=== PATIENT | female | born 1965 | race Caucasian/White ===

== ENCOUNTER 2016-10-15 11:46 | Inpatient (IN) ==
--- NOTE | 2016-10-15 12:11 | Emergency Department Report ---
Dizziness HPI - General Chief Complaint: Syncope Stated Complaint: dizzy ,dehydrated Time Seen by Provider: 10/15/16 11:59 Source: patient Mode of arrival: ambulatory Limitations: no limitations - History of Present Illness HPI Narrative: She presents to ER today from Destiny Mccarthy's office. She had gone to her office today for vomiting that has persisted x2 weeks. She had some promethazine left over from last summer and had been trying that at home but was not able to keep any food or water down for the last few days. Was noted at the PCP office to be weak and unsteady. They were using gait belt to help her get around to make sure that she did not fall. Had done lab at the clinic and was noted to be anemic (Hgb 8.4). She denies any abdominal pain or diarrhea. Denies any fever or chills. She does admit to drinking whiskey daily but states that she has not drank in a few weeks. MD complaint: dizziness Onset (ago): week(s) (2) Timing: gradual onset History of similar episodes: No History of trauma: No Severity: moderate Relieving factors: nothing Exacerbating factors: nothing Associated symptoms: malaise, nausea, vomiting - Related Data Home Medications Medication Instructions Recorded Confirmed Promethazine Tab [Phenergan Tab] 12.5 mg PO TID PRN 10/15/16 10/15/16 Allergies Allergy/AdvReac Type Severity Reaction Status Date / Time No Known Drug Allergies Allergy Unknown Verified 10/15/16 12:11 Review of Systems Constitutional: Reports: weakness. Denies: fever, chills Eyes: Denies: vision change ENT: Denies: ear pain, throat pain, congestion Cardiovascular: Denies: chest pain, palpitations, dyspnea on exertion, edema Respiratory: Denies: cough, dyspnea, wheezes Gastrointestinal: Reports: nausea, vomiting. Denies: abdominal pain, diarrhea, hematemesis, melena Genitourinary: Denies: urgency, dysuria, frequency Integumentary: Denies: rash Neurological: Reports: weakness. Denies: headache, numbness, paresthesias [facility] Patient Stated Medical History Hypertension Yes Depression Yes ETOHism Surgical History: Denies PSH - Social History Smoking status: Never smoker Physical Exam - General General appearance: alert, in no apparent distress - Normal Exams: Neck:: Full range of motion, without adenopathy, JVD, bruits or thyromegaly Chest/Respirations:: Clear all heck, with good airflow, and symmetry bilaterally Cardiovascular:: Regular rate and rhythm, without murmur or gallop, Pulses 2+ all extremities, capillary refill, <2 seconds all extremities Abdomen:: Bowel sounds positive, soft, non-tender, non-distended, no hepatosplenomegaly, masses or bruits noted Integumentary:: No rashes, hives, or bruising noted Neurological:: Patient is alert, and oriented Psychiatric:: Patient exhibits, appropriate attention, emotion and affect - Expanded ENT Exam External ear exam: Present: normal external inspection Nasal speculum exam: Bilateral: normal Mouth exam: Present: normal external inspection, tongue normal, other (Mucus membranes dry) Throat exam: Present: normal inspection Course Vital Signs Temperature 98.1 F 10/15/16 11:50 Pulse Rate 122 H 10/15/16 11:50 Respiratory Rate 18 10/15/16 11:50 Blood Pressure 128/60 10/15/16 11:50 Pulse Oximetry 99 10/15/16 11:50 Temperature 98.1 F 10/15/16 11:50 Pulse Rate 122 H 10/15/16 13:07 Respiratory Rate 20 10/15/16 12:23 Blood Pressure 123/77 10/15/16 13:07 Pulse Oximetry 100 10/15/16 13:07 Dizziness - MDM Narrative Medical decision making narrative: Hgb is 7.1. Rectal exam done at this time and is heme negative. Rocephin ordered IV for urinary tract infection. Spoke with Dr Lincoln regarding labs and hgb of 7.1. Will admit at this time. Patient has had no emesis during visit in ER. - Differential Diagnosis Likely: orthostatic hypotension - Lab Data Result diagrams: 10/15/16 12:49 10/15/16 12:49 Lab Results 10/15/16 10/15/16 10/15/16 Range/Units 12:49 12:49 12:49 WBC 3.4 L (4.5-11.0) T/MM3 RBC 1.66 L (4.00-5.20) M/MM3 Hgb 7.1 L (12-16) GM/DL Hct 21.4 L (36-46) % MCV 128.9 H (80-100) UM3 MCH 42.8 H (26-34) UUG MCHC 33.2 (31-37) GM/DL RDW Std Deviation 56.8 H (36.9-50.2) FL Plt Count 273 (130-400) T/MM3 MPV 10.0 (9.4-12.4) UM3 Immature Gran % (Auto) 0.3 (0.0-0.5) % Neut % (Auto) 69.0 H (33-66) % Lymph % (Auto) 18.8 L (23-45) % Brantley % (Auto) 11.3 H (0-9.0) % Eos % (Auto) 0.3 (0-4) % Baso % (Auto) 0.3 (0-2) % Neut # 2.3 (1.8-7.7) T/MM3 Lymph # 0.6 L (1-4.8) T/MM3 Brantley # 0.4 (0-0.8) T/MM3 Eos # 0.0 (0-0.5) T/MM3 Baso # 0.0 (0-0.2) T/MM3 Abs Immat Gran (auto) 0.01 (0.00-0.03) T/MM3 Turbidity < 20 (0-20) Sodium 139 (134-144) MEQ/L Potassium 3.7 (3.6-5) MEQ/L Chloride 104 (98-107) MEQ/L Carbon Dioxide 17 L (22-30) MEQ/L Anion Gap 18 H (5-15) MEQ/L BUN 4.0 L (7-17) MG/DL Creatinine 0.5 L (0.7-1.2) MG/DL GFR Calculation 130 BUN/Creatinine Ratio 8 (6-26) RATIO Glucose 91 (65-110) MG/DL Calculated Osmolality 265 (261-280) MOSM/KG Calcium 9.0 (8.4-10.2) MG/DL Total Bilirubin 1.30 (0.20-1.30) MG/DL Icterus Index < 2 (0-7) AST 89 H (14-36) U/L ALT 32 (9-52) U/L Alkaline Phosphatase 109 (38-126) U/L Troponin I < 0.012 (0-0.12) ng/ml Total Protein 6.3 (6.3-8.2) G/DL Albumin 3.9 (3.5-5.0) G/DL Globulin 2.4 (2.4-3.6) G/DL Albumin/Globulin Ratio 1.6 (1.1-2.2) RATIO Lipase 103 (23-300) U/L Plasma Lactate 1.2 (0.6-2.2) MMOL/L Procalcitonin 0.25 NG/ML Specimen Hemolysis < 15 (0-25) Ur Collection Type Urine Color (YELLOW) Urine Clarity Urine pH (5.0-8.0) Ur Specific [place] (1.015-1.025) Urine Protein (NEGATIVE) Urine Glucose (UA) (NEGATIVE) Urine Ketones (NEGATIVE) Urine Occult Blood (NEGATIVE) Urine Nitrate (NEGATIVE) Urine Bilirubin (NEGATIVE) Urine Urobilinogen (NORMAL) EU/DL Ur Leukocyte Esterase (NEGATIVE) Urine RBC (0-3) /HPF Urine WBC (0-5) /HPF Ur Squamous Epith Cells Ur Transition Epith Cell /HPF Urine Bacteria (NEGATIVE) Hyaline Casts /LPF Urine Mucus Ur Culture Indicated? 10/15/16 Range/Units 13:01 WBC (4.5-11.0) T/MM3 RBC (4.00-5.20) M/MM3 Hgb (12-16) GM/DL Hct (36-46) % MCV (80-100) UM3 MCH (26-34) UUG MCHC (31-37) GM/DL RDW Std Deviation (36.9-50.2) FL Plt Count (130-400) T/MM3 MPV (9.4-12.4) UM3 Immature Gran % (Auto) (0.0-0.5) % Neut % (Auto) (33-66) % Lymph % (Auto) (23-45) % Brantley % (Auto) (0-9.0) % Eos % (Auto) (0-4) % Baso % (Auto) (0-2) % Neut # (1.8-7.7) T/MM3 Lymph # (1-4.8) T/MM3 Brantley # (0-0.8) T/MM3 Eos # (0-0.5) T/MM3 Baso # (0-0.2) T/MM3 Abs Immat Gran (auto) (0.00-0.03) T/MM3 Turbidity (0-20) Sodium (134-144) MEQ/L Potassium (3.6-5) MEQ/L Chloride (98-107) MEQ/L Carbon Dioxide (22-30) MEQ/L Anion Gap (5-15) MEQ/L BUN (7-17) MG/DL Creatinine (0.7-1.2) MG/DL GFR Calculation BUN/Creatinine Ratio (6-26) RATIO Glucose (65-110) MG/DL Calculated Osmolality (261-280) MOSM/KG Calcium (8.4-10.2) MG/DL Total Bilirubin (0.20-1.30) MG/DL Icterus Index (0-7) AST (14-36) U/L ALT (9-52) U/L Alkaline Phosphatase (38-126) U/L Troponin I (0-0.12) ng/ml Total Protein (6.3-8.2) G/DL Albumin (3.5-5.0) G/DL Globulin (2.4-3.6) G/DL Albumin/Globulin Ratio (1.1-2.2) RATIO Lipase (23-300) U/L Plasma Lactate (0.6-2.2) MMOL/L Procalcitonin NG/ML Specimen Hemolysis (0-25) Ur Collection Type Urine, clean catch Urine Color Rosa (YELLOW) Urine Clarity Cloudy Urine pH 6.0 (5.0-8.0) Ur Specific [place] 1.025 (1.015-1.025) Urine Protein 1+ A (NEGATIVE) Urine Glucose (UA) Negative (NEGATIVE) Urine Ketones 3+ A (NEGATIVE) Urine Occult Blood Trace-lysed (NEGATIVE) Urine Nitrate Negative (NEGATIVE) Urine Bilirubin 2+ A (NEGATIVE) Urine Urobilinogen 4.0 A (NORMAL) EU/DL Ur Leukocyte Esterase 3+ A (NEGATIVE) Urine RBC 0-1 (0-3) /HPF Urine WBC 30-50 H (0-5) /HPF Ur Squamous Epith Cells 5-10 Ur Transition Epith Cell 0-1 /HPF Urine Bacteria 2+ H (NEGATIVE) Hyaline Casts 0-1 /LPF Urine Mucus Present Ur Culture Indicated? Cult reflexed &setup Disposition Clinical Impression: Anemia Qualifiers: Anemia type: unspecified type Qualified Code(s): D64.9 - Anemia, unspecified Disposition: 02 To [facility] [place] Acute Care Condition: Stable Prescriptions: No Action Promethazine Tab [Phenergan Tab] 12.5 mg PO TID PRN PRN Reason: Prn Orders Referrals: Rudi Sanchez MD [Physician] - Time of Disposition: 13:41 - Seen By: midlevel
[2016-10-15] MEDS: SALINE FLUSH 10ml SYRINGE IVF PRN ×4 (12:18→18:30)
--- NOTE | 2016-10-15 12:46 | XRay Report ---
INDICATION: dyspnea PROCEDURE: CHEST 2-VIEWS UPRIGHT (PA & LAT) Encounter: Initial COMPARISON: October 17, 2009 FINDINGS: The lungs are clear without evidence of focal abnormal airspace opacity. There is no pleural effusion or pneumothorax. The heart size, mediastinal contours and pulmonary vascularity are within normal limits. There is no significant skeletal abnormality. IMPRESSION: No acute cardiopulmonary disease. .
[2016-10-15] MEDS ORDERED: CEFTRIAXONE (ER USE ONLY) 1 GM in NS 100 ML IV ONE (13:19)
[2016-10-15] MEDS ORDERED: ONDANSETRON 4 MG/2 ML INJECTION IVP PRN (14:30)
[2016-10-15 14:39] VITALS: BMI 34.2
[2016-10-15] MEDS ORDERED: PROMETHAZINE 25 MG INJECTION IVP PRN (14:50)
[2016-10-15] MEDS: PANTOPRAZOLE 40 MG INJECTION IVP SCH ×2 (15:00→21:31)
[2016-10-15] MEDS: NS with KCL 20 mEq 1,000 ML IV SCH (15:00)
[2016-10-15] MEDS ORDERED: BISACODYL 10 MG SUPPOSITORY RECTALLY PRN (15:01)
[2016-10-15] MEDS ORDERED: DiphenhydrAMINE 25 MG CAPSULE PO ONE (15:04)
[2016-10-15] MEDS ORDERED: NS FLUSH BAG 500ml IV PRN (15:04)
--- NOTE | 2016-10-15 15:11 | History & Physical Report ---
<Skylar Mcclelland V - Last Filed: 10/15/16 15:08> History of Present Illness Date: 10/15/16 Chief complaint: Dizziness, dyspnea with exertion, anemic HPI: Patient is a 51-year-old female who presented to her primary care provider, Destiny Mcgill APRN at [facility] this morning for evaluation of dizziness, weakness and shortness of breath. She reports that she has been vomiting intermittently for the last 2-3 weeks. It was reported that lab had been obtained last week at [facility] clinic in which indicated a hemoglobin of 8.4. Due to patient's acute symptoms, accompanied with her increase pallor. She was directed to the emergency room for acute evaluation and treatment. White count was found to be low at 3.4, RBCs 1.66, hemoglobin 7.1 , hematocrit 21.4, MCV 128.9, platelet count 273. Sodium 139, potassium 3.7, BUN 4, creatinine 0.6, glucose 91. AST is elevated at 89, ALT normal at 32. Bilirubin 1.3, troponin undetectable. Venous lactate 1.2, lipase 103, pro calcitonin 0.25. A urinalysis did reveal acute infection with 1+ protein, 3+ ketones, 2+ bilirubin, 4+ urobilinogen, 3+ leukocyte esterase, 30-50 WBCs with 2 + bacteria. A chest x-ray is obtained showing no acute cardiopulmonary findings. Patient's tachycardic on arrival to the emergency room at 122, temperature 98.1, respiration rate 18, blood pressure 128/60, room air saturations 99%. A rectal exam was obtained that was heme-negative. Given her acute symptomatic anemia, accompanied with tachycardia. The hospitalist services were contacted and accepted patient for inpatient admission for further evaluation and treatment. It is expected that her stay will be greater than 2 overnights. Review of Systems All systems: reviewed and no additional remarkable complaints except as stated - Constitutional Constitutional: Present: fatigue, malaise - Respiratory Respiratory: Present: dyspnea, dyspnea on exertion - Gastrointestinal Gastrointestinal: Present: vomiting (x3 weeks) - Neurological Neurological: Present: dizziness, weakness PFSH Past medical Hx Hypertension Depression Daily alcohol consumption Surgical History: Denies PSH Family History: Father-diabetes. Patient is estranged from her mother and siblings. - Social History Smoking status: Never smoker Substance use type: does not use Alcohol intake: current Alcohol intake frequency: 0-2 drinks per day Housing: house Current occupational status: disabled Current residence: Apartment/Private Home Social history: PCP- Destiny Mcgill APRN at [facility] Medications Home Medications Medication Instructions Recorded Confirmed Type Promethazine Tab [Phenergan Tab] 12.5 mg PO TID PRN 10/15/16 10/15/16 History Allergies Allergy/AdvReac Type Severity Reaction Status Date / Time aspirin [From Naomy Aspirin] Allergy Intermediate Rash Verified 10/15/16 15:38 Exam Vital Signs: Temperature 97.3 F 10/15/16 14:30 Pulse Rate 101 H 10/15/16 14:30 Respiratory Rate 16 10/15/16 14:30 Blood Pressure 131/74 10/15/16 14:30 Pulse Oximetry 98 10/15/16 14:30 Oxygen Delivery Method Room Air Height: 1.68 m Weight: 96.3 kg Body Mass Index: 34.2 - Constitutional Present: no acute distress, well nourished, well developed - Routine HEENT Exam Head: Present: normocephalic, atraumatic Eye: Present: EOMI, PERRL ENT: Present: mucous membranes moist - Routine Neck Exam Present: supple, full ROM - Routine Respiratory Exam Present: CTA bilaterally - Routine Cardiovascular Exam Present: RRR, S1, S2, tachycardia (100) - Routine Abdominal Exam Present: soft, non distended, non tender. Absent: normoactive bowel sounds ( hypoactive ) - Routine Extremities Exam Present: no edema, full ROM, pallor - Routine Back/Spine/Pelvis Exam Back/Spine: Present: full ROM - Routine Skin Exam Present: intact, dry, pallor - Routine Neurological Exam Present: alert, oriented X3, CN II-XII intact, moving all extremities - Routine Psychiatric Exam Present: normal affect, normal thought process Results - Labs CBC & Chem 7: 10/15/16 12:49 10/15/16 12:49 Assessment and Plan (1) Anemia Current visit: Yes Status: Acute (2) Leukopenia Current visit: Yes Status: Acute (3) HTN (hypertension) Current visit: Yes Status: Chronic (4) Depression Current visit: Yes Status: Chronic (5) Daily consumption of alcohol Current visit: Yes Status: Chronic (6) UTI (urinary tract infection) Current visit: Yes Status: Acute DVT Prophylaxis: SCD's GI Prophylaxis: Protonix Resuscitation Status: Full Code Assessment and Plan: 10/15/16 Admit patient to inpatient status under the care of Dr. Lincoln for symptomatic anemia, leukopenia, urinary tract infection Type and screen Cross both patient and transfuse 1 unit of packed red blood cells for anemia. Consult Dr. Amezcua for further surgical evaluation and treatment. Did discuss with patient that she may require further GI scope evaluation. Will obtain iron studies including ferritin, iron, folate and vitamin B12. Protonix 40 milligrams IV twice a day for GI protection Will give folate and thiamine given history of routine alcohol use. Normal saline with 20 of KCl at 75 ML per hour for gentle hydration UA obtained in the ER indicating a UTI. Patient started on Rocephin 1 gm IV daily. Urine culture pending. Will recheck CBC and CMP tomorrow morning to follow blood counts, renal function and electrolytes. Will discuss further orders and plan of care with attending, Dr. Lincoln. At time of discharge medical care will return to primary care provider at [facility] Sepsis Assessment - Evaluation Sepsis screening result: No Definite Risk Hospital Course Summary Disclaimer: The visit summary below is not to be considered part of the above Progress Note. Hospital Course: 10/15/16- Admission Admit patient to inpatient status under the care of Dr. Lincoln for symptomatic anemia, leukopenia, urinary tract infection Type and screen Cross both patient and transfuse 1 unit of packed red blood cells for anemia. Consult Dr. Amezcua for further surgical evaluation and treatment. Did discuss with patient that she may require further GI scope evaluation. Will obtain iron studies including ferritin, iron, folate and vitamin B12. Protonix 40 milligrams IV twice a day for GI protection Will give folate and thiamine given history of routine alcohol use. Normal saline with 20 of KCl at 75 ML per hour for gentle hydration UA obtained in the ER indicating a UTI. Patient started on Rocephin 1 gm IV daily. Urine culture pending. Will recheck CBC and CMP tomorrow morning to follow blood counts, renal function and electrolytes. Will discuss further orders and plan of care with attending, Dr. Lincoln. At time of discharge [facility] <Kvng Lincoln Filed: 10/15/16 16:54> History of Present Illness Date: 10/15/16 ON LICENSE OF [facility] Patient Stated Medical History Hypertension Yes Hx Urinary Tract Infection Yes: currently Anemia Yes: currently Osteoarthritis Yes: knees Depression Yes Post Menopausal Yes: 2013 Exam Vital Signs: Temperature 97.3 F 10/15/16 14:30 Pulse Rate 101 H 10/15/16 14:30 Respiratory Rate 16 10/15/16 14:30 Blood Pressure 131/74 10/15/16 14:30 Pulse Oximetry 98 10/15/16 14:30 Oxygen Delivery Method Room Air Height: 1.68 m Weight: 96.3 kg Results - Labs CBC & Chem 7: 10/15/16 12:49 10/15/16 12:49 Assessment and Plan (1) Anemia Current visit: Yes Status: Acute (2) Leukopenia Current visit: Yes Status: Acute (3) UTI (urinary tract infection) Current visit: Yes Status: Acute (4) HTN (hypertension) Current visit: Yes Status: Chronic (5) Depression Current visit: Yes Status: Chronic (6) Daily consumption of alcohol Current visit: Yes Status: Chronic Assessment and Plan: Have independently interviewed and examined pt. Chart reviewed. Case discussed with ED physician and my [employer]. Care plan developed with my supervision; agree with above. Has been having nausea and vomiting over the last 2 weeks. Hard to keep anything down-any intake makes a U-turn and she vomits it up. Tried some old Phenergan but not able to keep this down. Not throwing up blood. No blood in stool or tarry dark sticky stools noted. Appetite progressively decreased-not feeling hungry or wanting to eat. Progressively more weak and unsteady. Lightheaded with positional changes. Gets short of breath as walking. Much more tired and fatigued. Not feeling chest pressure or pain. Report still producing urine. Denies use of OTC pain medications. Lungs: decreased, no distress CV: tachy, regular AB: soft nt/nd BS present Ext: no edema MSE: awake alert appropriate Plan: Inpatient admission-anticipate greater than 2 midnights of care needed. With significant and symptomatic anemia, will transfuse 1 unit of pRBC and monitor hemoglobin response. Monitor for GI blood loss-currently not seeing evidence of massive acute lose, but patient at risk. Protonix 40mg IV BID for GI protection-suspect upper GI losses. EGD and colonoscopy would be prudent due to severity of anemia and pt's age-discussed this with her and she is not too keen to proceed right now but would be prudent to have Sx see her for potential procedures in the outpatient setting. As not looking at EGD/colonoscopy immediately, will advance diet to full liquid. Check B12 and folic acid secondary to macrocytosis (anemia could potentially be from her chronic ETOH use ). Iron and ferritin prudent as likely some chronic blood loss from gastritis secondary to ETOH use. SCD for DVT prevention. Monitor lab. Discussed code status with pt and she request no resuscitation. [facility] to [facility] at time of discharge from [facility] [place] Hospital Course Summary Disclaimer: The visit summary below is not to be considered part of the above Progress Note.
[2016-10-15] MEDS: THIAMINE 200mg/2ml INJECTION IVP SCH (16:30)
[2016-10-15] MEDS: FOLIC ACID 5 MG/ML INJECTION IVP SCH (16:31)
[2016-10-15] MEDS ORDERED: DiphenhydrAMINE 50 MG/ML INJECTION IVP ONE (18:24)
[2016-10-15] MEDS ORDERED: ACETAMINOPHEN 325 MG TABLET PO ONE (19:48)
[2016-10-16] MEDS: NS with KCL 20 mEq 1,000 ML IV SCH (06:49)
[2016-10-16] MEDS: PANTOPRAZOLE 40 MG INJECTION IVP SCH (08:25)
[2016-10-16] MEDS: THIAMINE 200mg/2ml INJECTION IVP SCH (08:26)
[2016-10-16] MEDS: FOLIC ACID 5 MG/ML INJECTION IVP SCH (08:26)
[2016-10-16] MEDS: SALINE FLUSH 10ml SYRINGE IVF PRN (08:27)
[2016-10-16] MEDS: CEFTRIAXONE 1 G in NS 100 ML IV SCH (08:42)
--- NOTE | 2016-10-16 09:09 | Consultation ---
DATE OF CONSULTATION 10/15/2016 HISTORY OF PRESENT ILLNESS This patient is 51 years old. This patient had an office visit today at the [facility] office. She reported that she had been having vomiting for two weeks. The patient reported that she had not been able to keep any food or water down for the last few days. The patient did appear to be weak and unsteady at the time of the office visit at [facility]. She had laboratory tests performed at [facility] and was noted to have a hemoglobin of 8.4. The patient denied any abdominal pain or diarrhea. She denied any fever or chills. She was transferred to [facility] emergency room. She had a chief complaint of dizziness and syncope. CBC was repeated at [facility] and the patient was found have a hemoglobin of 7.1. The patient was thought to have some likely orthostatic hypotension. The patient did not have any emesis during the time that she was evaluated at the emergency room. Rectal exam was done at the time of emergency room evaluation. The stool at this time was noted to be Hemoccult negative. The patient was admitted to [facility] from the emergency room by the hospitalist service for further evaluation and treatment of the acute anemia. The patient was noted at the time of admission to have acute symptomatic anemia accompanied by tachycardia. The patient was also noted at this time to have leukopenia with a white blood cell count of 3400. Plans are being made to type and cross the patient to transfuse her with one unit of packed red blood cells for treatment of the anemia. Iron studies will be performed. The patient is being started on treatment with Protonix 40 mg IV b.i.d. pending evaluation of the gastrointestinal tract. The patient states that she has had no abdominal pain. She states that she has never previously had any episode of anemia. She has no history of peptic ulcer disease. She has never had any previous esophagogastroduodenoscopy or colonoscopy procedure. The patient has never seen any blood in her stool. PAST MEDICAL HISTORY The patient has had no previous operations. She has had no previous esophagogastroduodenoscopy or colonoscopy procedures. PHYSICAL EXAMINATION VITAL SIGNS: Temperature is 97.3 degrees. Pulse is 101. Respiratory rate is 16. Blood pressure is 131/74. Oxygen saturation is 98% on room air. Height is 1.68 meters. Weight is 96.3 kg. BMI is 34.3 kg/m2. ABDOMEN: No abdominal masses. No abdominal tenderness. No old incision scars. The abdomen is soft. RECTUM: I did perform digital rectal examination. There was no blood at the rectal vault. There were no rectal masses. LABORATORY DATA Hemoglobin was 7.1 and hematocrit was 21.4 at the time of admission to [facility] today. White blood count was 3400. Platelet count is 273,000. Total bilirubin is normal at 1.3. AST is mildly elevated at 89. ALT and alkaline phosphatase are normal. IMPRESSION 1. Anemia. 2. Leukopenia. 3. History of nausea and vomiting of two weeks' duration. 4. Acute urinary tract infection. 5. Hypertension. 6. Depression. RECOMMENDATIONS 1. I agree with the plan to transfuse the patient with one unit of packed red blood cells and monitor hemoglobin and hematocrit. 2. I agree with the treatment of Protonix 40 mg IV b.i.d. for GI protection until the upper gastrointestinal tract can be evaluated. 3. I think the patient would benefit from esophagogastroduodenoscopy and colonoscopy for evaluation of her anemia. The patient should also have a colonoscopy anyway at this time for screening for colon and rectal carcinoma. PATIENT EDUCATION I did talk with the patient about undergoing esophagogastroduodenoscopy and colonoscopy. The nature of these procedures was described to the patient. Expected benefits were reviewed. Alternatives were reviewed. Potential risks and complications were also reviewed with the patient. PLAN The patient is wanting to proceed with esophagogastroduodenoscopy at this time. She will be scheduled to have this procedure tomorrow. JUANIS
--- NOTE | 2016-10-16 09:25 | Anesthesia Preoperative Report ---
Anesthesia Preoperative Record - Date and Time Date: 10/16/16 Preoperative Diagnosis: Anemia Proposed Procedure: EGD NPO Since Date: 10/15/16 NPO Since Time: 23:55 Allergies/Adverse Reactions: Allergies Allergy/AdvReac Type Severity Reaction Status Date / Time aspirin [From Naomy Aspirin] Allergy Intermediate Rash Verified 10/15/16 15:38 - Vital Signs Vital Signs: Temperature 98.3 F 10/16/16 09:09 Pulse Rate 124 H 10/16/16 09:09 Respiratory Rate 19 10/16/16 09:09 Blood Pressure 145/75 H 10/16/16 09:09 Pulse Oximetry 97 10/16/16 09:09 Oxygen Delivery Method Room Air Height and Weight: Height 5 ft 6 in Weight 96.9 kg Body Mass Index 34.2 - Medications Inpatient Medications: Current Medications Acetaminophen (Tylenol) 650 mg PO Q5H PRN PRN Reason: Discomfort Bisacodyl (Dulcolax) 10 mg RECTALLY DAILY PRN PRN Reason: Constipation Cyanocobalamin (Vit. B-12) 1,000 mcg IM DAILY [facility] Stop: 10/20/16 09:01 Folic Acid (Folate) 1 mg IVP DAILY [facility] Last Admin: 10/16/16 08:26 Dose: 1 mg Potassium Chloride/Sodium Chloride () 1,000 mls @ 75 mls/hr IV .[id number] [facility] Last Infusion: 10/16/16 08:42 Dose: 0 mls/hr Ceftriaxone Sodium 1 g/ Sodium (Chloride) 100 mls @ 200 mls/hr IV DAILY [facility] Last Admin: 10/16/16 08:42 Dose: 200 mls/hr Lidocaine HCl 10 mg/ Potassium Chloride 10 meq/ Sodium Chloride 100 mls @ 100 mls/hr IV .Q1H [facility] Stop: 10/16/16 12:14 Magnesium Sulfate/Dextrose (Mag Sulf 1gm Premix) 1 gm in 100 mls @ 100 mls/hr IV Q1H [facility] Stop: 10/16/16 11:08 Lorazepam (Ativan Inj) 0.5 mg IVP Q4H PRN PRN Reason: Agitation/Restlessness Magnesium Hydroxide (Mom) 30 ml PO DAILY PRN PRN Reason: Constipation Ondansetron HCl (Zofran) 4 mg IVP Q6H PRN PRN Reason: Nausea Pantoprazole Sodium (Protonix Iv) 40 mg IVP BID [facility] Last Admin: 10/16/16 08:25 Dose: 40 mg Potassium Chloride (K-Dur) 20 meq PO ONCE ONE Stop: 10/16/16 17:31 Promethazine HCl (Phenergan Inj) 25 mg IVP Q6H PRN PRN Reason: Nausea Sodium Chloride (Iv Flush) 10 - 80 ml IVF PRN PRN PRN Reason: Flushing Last Admin: 10/16/16 08:27 Dose: 10 ml Sodium Chloride (Normal Saline) 500 ml IV PRN PRN Thiamine HCl (Vitamin B-1) 100 mg IVP DAILY [facility] Last Admin: 10/16/16 08:26 Dose: 100 mg Home Medications: Home Medications Medication Instructions Recorded Confirmed Type Promethazine Tab [Phenergan Tab] 12.5 mg PO TID PRN 10/15/16 10/15/16 History Is Patient on Beta Neeraj?: No - Medical History Respiratory: Reports: Sleep Apnea Cardiovascular: Reports: Hypertension Other History: Reports: Blood Transfusions (had reaction yesterday) - Surgical History Anesthesia Reactions: None Hx Family Anesthesia Reaction: No (mother but unsure of reaction) History of Motion Sickness: No - Social History Smoking Status: Never smoker Hx Chewing Tobacco Use: No Second Hand Exposure: No Substance Use Type: does not use Alcohol Intake: current Alcohol Intake Frequency: 0-2 drinks per day Last Drink: days (ago) (14) - Pertinent Findings Laboratory: CBC and BMP 10/16/16 04:23 10/16/16 04:23 BMP 10/16/16 04:23 Sodium 139 Potassium 3.2 L Chloride 105 Carbon Dioxide 21 L BUN 3.0 L Creatinine 0.4 L Glucose 83 Calcium 8.9 Liver Function 10/16/16 Range/Units 04:23 Total Bilirubin 1.20 (0.20-1.30) MG/DL AST 52 H (14-36) U/L ALT 31 (9-52) U/L Alkaline Phosphatase 96 (38-126) U/L Albumin 3.5 (3.5-5.0) G/DL EKG Rhythm: Sinus Tachycardia - Physical Exam Respiratory Exam: Present: lungs clear, bilateral breath sounds equal Cardiovascular Exam: Present: regular rate and rhythm, no murmur - Airway Assessment Mallampati Score: III TMD: 3 Fingerbreadths Overall Assessment: may be difficult intubation - ASA ASA Score: 2 - Plan Anesthesia: General TIVA - Discussion Discussion: Discussed risks/options/alternatives of anesthesia and questions answered. Patient consents. Nursing pain assessment noted. Attestation Statement: Prior to the delivery of any anesthetic medication, I examined the patient, developed the plan, obtained the patient's consent and discussed the risk and benefits of the procedure with the patient/guardian. - Additional Information Seen by Anesthesia: Yes
[2016-10-16] MEDS ORDERED: NS 1,000 ML IV SCH (09:30)
[2016-10-16] MEDS ORDERED: PROPOFOL 500 MG/50 ML VIAL IV ONE (09:30)
[2016-10-16] MEDS ORDERED: LIDOCAINE VISCOUS 2% ORAL LIQUID 15ml ONE (11:20)
--- NOTE | 2016-10-16 12:10 | General Surgery Procedure Note ---
Date of Procedure: 10/16/16 Surgeon: Seven Postoperative Diagnosis: anemia Procedure: EGD Estimated Blood Loss: See Anesthesia Record.
--- NOTE | 2016-10-16 12:25 | Anesthesia Postoperative Note ---
- Date and Time Date: 10/16/16 Time: 12:25 - Status Patient Participated in Evaluation: Patient Participated in Person Vital Signs: Temperature 99.1 F 10/16/16 12:10 Pulse Rate 104 H 10/16/16 12:20 Respiratory Rate 18 10/16/16 12:20 Blood Pressure 91/55 10/16/16 12:20 Pulse Oximetry 99 10/16/16 12:20 Oxygen Delivery Method Room Air Oxygen Flow Rate 4 Respiratory Function: Airway Patent Cardiovascular Function: Regular Pulse EKG Rhythm: Normal Sinus Rhythm Mental Status: Alert and Oriented Pain Intensity: 0 Hydration: IV Infusing Complications During Recover: None Apparent - Follow-Up Instructions Instructions: Per Surgeon
[2016-10-16] MEDS: LIDOCAINE 1% 2ml INJ 10 MG, POTASSIUM CHLORIDE INJ 10 MEQ in NS 100 ML IV SCH ×4 (13:08→18:27)
[2016-10-16] MEDS: CYANOCOBALAMIN (B-12) 1,000mcg/ml INJECTION IM SCH (13:37)
--- NOTE | 2016-10-16 13:44 | Progress Note ---
Subjective: F/U: Anemia Returned from EGD-tolerated well (but very apprehensive about it prior). Denies nausea or ab pain. Breathing well. Feeling better than prior to admission, but has not been up much. Objective Vital signs: Temperature 99.1 F 10/16/16 12:41 Pulse Rate 93 10/16/16 13:12 Respiratory Rate 16 10/16/16 13:12 Blood Pressure 123/67 10/16/16 13:12 Pulse Oximetry 97 10/16/16 13:12 Oxygen Delivery Method Room Air Oxygen Flow Rate 4 Rhythm: Normal Sinus Rhythm - Constitutional Present: no acute distress, well nourished, well developed, obese, cooperative - Routine HEENT Exam Head: Present: normocephalic, atraumatic Eye: Present: EOMI, PERRL. Absent: conjunctival icterus ENT: Present: mucous membranes moist - Routine Respiratory Exam Present: CTA bilaterally. Absent: respiratory distress, rhonchi, wheezes, crackles - Routine Cardiovascular Exam Present: no murmur, tachycardia - Routine Abdominal Exam Present: soft, normoactive bowel sounds, non distended, non tender. Absent: rebound, guarding - Routine Extremities Exam Present: cyanosis, clubbing, no edema - Routine Musculoskeletal Exam Musculoskeletal: Present: no clubbing or cyanosis. Absent: no tenderness, no erythema - Routine Skin Exam Present: intact, warm, normal turgor - Routine Neurological Exam Present: alert, CN II-XII intact, vision grossly intact, hearing grossly intact. Absent: motor deficit - Routine Psychiatric Exam Present: normal affect, normal thought process, cooperative. Absent: anxious, agitated Results - Labs CBC & Chem 7: 10/16/16 04:23 10/16/16 04:23 Labs: Laboratory Tests 10/15/16 12:49 Iron 229 H Ferritin 2290 H Vitamin B12 269 Folate 2.9 Assessment and Plan (1) Anemia Current visit: Yes Status: Acute (2) Leukopenia Current visit: Yes Status: Acute (3) UTI (urinary tract infection) Problem details: POA Current visit: Yes Status: Acute 10/16/16 Ecoli growing. (4) HTN (hypertension) Current visit: Yes Status: Chronic (5) Depression Current visit: Yes Status: Chronic (6) Daily consumption of alcohol Current visit: Yes Status: Chronic (7) Hypokalemia Problem details: Not POA Current visit: Yes Status: Acute DVT Prophylaxis: SCD's GI Prophylaxis: Protonix Resuscitation Status: Do Not Resuscitate Assessment and Plan: EGD performed today by Dr Amezcua - no acute finding. No ulcer or gastritis. Will decrease Protonix to once a day. Do not feel need to continue PPI in outpatient setting. Would recommend colonoscopy due to her age and anemia. Likely can have done later in outpatient setting by Dr Amezcua. Folate and Vit B12 levels low normal - fits with Macrocytosis noted on initial CBC. Vit B12 started IM. Continue thiamine and folate during hospitalization- change to oral. Hemoglobin increased from 7.1 to 7.7 last night post transfusion. HGB 7.6 this am. Recheck HGB this afternoon. Will have nursing get patient up and ambulate to assess symptoms of anemia. Still Tachycardic. With only slight increase in hemoglobin post transfusion, likely need repeat transfusion. Potassium with decrease to 3.2 this am despite IVF having potassium. IV Boluses given this am. Recheck potassium this afternoon with Blood counts to assess response to potassium replacement. Diet advance to regular-monitor for return of nausea (outpatient N/V x2 weeks prior to admission. Urine culture growing E coli - continue Rocephin, check C/S. Case discussed with nursing and Dr Amezcua. Time spent with patient care 35 minutes. Counseled pt on Vit deficiency and discussed EGD findings. Sepsis Assessment - Evaluation Sepsis screening result: No Definite Risk Hospital Course Summary Disclaimer: The visit summary below is not to be considered part of the above Progress Note. Hospital Course: 10/15/16- Admission Admit patient to inpatient status under the care of Dr. Lincoln for symptomatic anemia, leukopenia, urinary tract infection. Type/Cross/Give 1 unit of packed red blood cells for symptomatic anemia with hemoglobin 7.[address] Amezcua for further surgical evaluation and treatment. Did discuss with patient that she may require further GI scope evaluation. Will obtain iron studies including ferritin, iron, folate and vitamin B12. Protonix 40 milligrams IV twice a day for GI protection. Concern for gastritis secondary to routine alcohol use. Will give folate and thiamine given history of routine alcohol use. Normal saline with 20 of KCl at 75 ML per hour for gentle hydration. UA obtained in the ER indicating a UTI. Patient started on Rocephin 1 gm IV daily. Urine culture pending. Will recheck CBC and CMP tomorrow morning to follow blood counts, renal function and electrolytes. At time of discharge medical care will return to primary care provider at [facility], Destiny Mccarthy-JOSHUA. 10/16/16 EGD performed today by Dr Amezcua - no acute finding. No ulcer or gastritis. Will decrease Protonix to once a day. Do not feel need to continue PPI in outpatient setting. Would recommend colonoscopy due to her age and anemia. Likely can have done later in outpatient setting by Dr Amezcua. Folate and Vit B12 levels low normal - fits with Macrocytosis noted on initial CBC. Vit B12 started IM. Continue thiamine and Folate during hospitalization- change to oral. Hemoglobin increased from 7.1 to 7.7 last night post transfusion. HGB 7.6 this am. Recheck HGB this afternoon. Will have nursing get patient up and ambulate to assess symptoms of anemia. Still Tachycardic. With only slight increase in hemoglobin post transfusion, likely need repeat transfusion. Potassium with decrease to 3.2 this am despite IVF having potassium. IV Boluses given this am. Recheck potassium this afternoon with Blood counts to assess response to potassium replacement. Diet advance to regular-monitor for return of nausea (outpatient N/V x2 weeks prior to admission. Urine culture growing E coli - continue Rocephin, check C/S.
--- NOTE | 2016-10-16 14:01 | Operative Note ---
DATE OF OPERATION 10/16/2016 PREOPERATIVE DIAGNOSIS Anemia. POSTOPERATIVE DIAGNOSIS Anemia. OPERATION Esophagogastroduodenoscopy SURGEON Linus Amezcua MD ANESTHESIA TIVA ASA CLASS 2 FINDINGS Mucosa appeared normal throughout the esophagus. There was no distal esophagitis. There were no esophageal varices. There were no esophageal erosions or ulcers anywhere. The patient did have a few small polyps at the fundus of the stomach. Gastric mucosa otherwise appeared normal. There was no gastritis. There were no gastric erosions or ulcers. There was no duodenitis. There were no duodenal erosions or ulcers. No bright red blood or old blood was seen anywhere at the upper gastrointestinal tract. No source for bleeding which would lead to anemia was found at the upper gastrointestinal tract. DESCRIPTION OF OPERATION The patient was brought to the endoscopy room. The patient was placed on a cart in the endoscopy room. The patient was placed in left lateral recumbent position on the cart. The patient was premedicated with intravenous sedation medication administered by the nurse assistant football coach. The Olympus upper GI endoscope was used. The upper GI endoscope was introduced into the esophagus. The upper GI endoscope was advanced down through the esophagus and stomach into the duodenum. The upper GI endoscope was then withdrawn from the duodenum back into the stomach. The upper GI endoscope was retroflexed and the gastroesophageal junction was viewed from below. The upper GI endoscope was straightened out. Stomach was examined further. The upper GI endoscope was then withdrawn out through the stomach and esophagus and removed from the patient. Findings throughout the procedure were as described above. The patient did continue to receive intravenous sedation medication administered by the nurse assistant football coach throughout the operation. The patient did tolerate the operation well. JUANIS
[2016-10-16] MEDS: MAGNESIUM SULFATE 1gm PREMIX 1 GM/100 ML BAG IV SCH ×2 (15:26→16:56)
[2016-10-17] MEDS: ACETAMINOPHEN 325 MG TABLET PO PRN ×3 (02:22→19:45)
[2016-10-17] MEDS: NS with KCL 20 mEq 1,000 ML IV SCH ×2 (05:36→06:43)
[2016-10-17] MEDS ORDERED: PANTOPRAZOLE 40 MG INJECTION IVP SCH (09:00)
[2016-10-17] MEDS: FOLIC ACID 1 MG TABLET PO SCH (09:30)
[2016-10-17] MEDS: CEFTRIAXONE 1 G in NS 100 ML IV SCH (09:31)
[2016-10-17] MEDS: CYANOCOBALAMIN (B-12) 1,000mcg/ml INJECTION IM SCH (09:31)
--- NOTE | 2016-10-17 10:51 | Progress Note ---
Subjective: Feeling okay today but still feels weak, feels like she could easily fall and afraid to get up on her own. Dyspneic with exertion. Tachycardic but denies anxiety, denies any withdrawal symptoms (no tremor, no confusion, no hypertension). Discussed PRBC transfusion today and labs to eval her anemia thus far. Denies any bleeding, dark stools. Objective Vital signs: Temperature 97.1 F 10/17/16 08:23 Pulse Rate 109 H 10/17/16 08:23 Respiratory Rate 18 10/17/16 08:23 Blood Pressure 126/76 10/17/16 08:23 Pulse Oximetry 94 10/17/16 08:23 Oxygen Delivery Method Room Air Oxygen Flow Rate 4 Rhythm: Sinus Tachycardia - Constitutional Present: no acute distress, well nourished, well developed - Routine HEENT Exam Head: Present: normocephalic, atraumatic Eye: Present: EOMI, PERRL. Absent: conjunctival icterus ENT: Present: mucous membranes moist, oropharynx clear - Routine Respiratory Exam Present: dyspnea (with exertion), CTA bilaterally. Absent: accessory muscle use , respiratory distress - Routine Cardiovascular Exam Present: no murmur, tachycardia. Absent: rubs - Routine Abdominal Exam Present: soft. Absent: tenderness, non distended - Routine Extremities Exam Present: pulses intact. Absent: clubbing, edema - Routine Skin Exam Present: intact, dry. Absent: jaundice, rash - Routine Neurological Exam Present: alert, oriented X3, normal speech. Absent: tremors - Routine Psychiatric Exam Present: normal affect, cooperative Results - Labs CBC & Chem 7: 10/17/16 04:34 10/17/16 04:34 Assessment and Plan GI Prophylaxis: Protonix Resuscitation Status: Do Not Resuscitate Assessment and Plan: Symptomatic anemia, as noted below; receiving PRBC this morning again (1 unit) EGD performed 10/[address] Amezcua - no acute finding. No ulcer or gastritis. Will stop IV protonix and monitor for symptoms; no indication to continue chronically Would recommend colonoscopy due to her age and anemia. Discussed again today and she is agreeable. Likely can have done later in outpatient setting by Dr Amezcua. Folate and Vit B12 levels low normal - fits with Macrocytosis noted on initial CBC. Vit B12 started IM. Continue oral thiamine and folate during hospitalization. Hemoglobin increased from 7.1 to 7.7 after initial transfusion, down again to 6.9 this morning. Labs reviewed; replacing B12/folate, iron stores high. Will check retic count and LDH in AM as she is also leukopenic. Leukopenia with WBC 1.8 this morning. May have underlying myelodysplasia and if not improving will need hematology opinion. Potassium was low previously but improved to 3.9 now. Will hold further IVF and monitor with po intake. Hypomagnesemia, Mg 1.8 currently and will monitor. Continue regular diet and monitor intake Urine culture growing E coli - continue Rocephin and follow C/S when available to determine po option for antibiotics. Case discussed with nursing staff. Time spent with patient 30 minutes. Counseled pt on vitamin deficiencies, need for PRBC, possible need for hematologic evaluation. Sepsis Assessment - Evaluation Sepsis screening result: Sepsis Risk Hospital Course Summary Disclaimer: The visit summary below is not to be considered part of the above Progress Note. Hospital Course: 10/15/16- Admission Admit patient to inpatient status under the care of Dr. Lincoln for symptomatic anemia, leukopenia, urinary tract infection. Type/Cross/Give 1 unit of packed red blood cells for symptomatic anemia with hemoglobin 7.[address] Amezcua for further surgical evaluation and treatment. Did discuss with patient that she may require further GI scope evaluation. Will obtain iron studies including ferritin, iron, folate and vitamin B12. Protonix 40 milligrams IV twice a day for GI protection. Concern for gastritis secondary to routine alcohol use. Will give folate and thiamine given history of routine alcohol use. Normal saline with 20 of KCl at 75 ML per hour for gentle hydration. UA obtained in the ER indicating a UTI. Patient started on Rocephin 1 gm IV daily. Urine culture pending. Will recheck CBC and CMP tomorrow morning to follow blood counts, renal function and electrolytes. At time of discharge medical care will return to primary care provider at [facility], Destiny Mccarthy-JOSHUA. 10/16/16 EGD performed today by Dr Amezcua - no acute finding. No ulcer or gastritis. Will decrease Protonix to once a day. Do not feel need to continue PPI in outpatient setting. Would recommend colonoscopy due to her age and anemia. Likely can have done later in outpatient setting by Dr Amezcua. Folate and Vit B12 levels low normal - fits with Macrocytosis noted on initial CBC. Vit B12 started IM. Continue thiamine and Folate during hospitalization- change to oral. Hemoglobin increased from 7.1 to 7.7 last night post transfusion. HGB 7.6 this am. Recheck HGB this afternoon. Will have nursing get patient up and ambulate to assess symptoms of anemia. Still Tachycardic. With only slight increase in hemoglobin post transfusion, likely need repeat transfusion. Potassium with decrease to 3.2 this am despite IVF having potassium. IV Boluses given this am. Recheck potassium this afternoon with Blood counts to assess response to potassium replacement. Diet advance to regular-monitor for return of nausea (outpatient N/V x2 weeks prior to admission. Urine culture growing E coli - continue Rocephin, check C/S. 10/17/16 Symptomatic anemia, as noted below; receiving PRBC this morning again (1 unit) EGD performed 10/[address] Amezcua - no acute finding. No ulcer or gastritis. Will stop IV protonix and monitor for symptoms; no indication to continue chronically Would recommend colonoscopy due to her age and anemia. Discussed again today and she is agreeable. Likely can have done later in outpatient setting by Dr Amezcua. Folate and Vit B12 levels low normal - fits with Macrocytosis noted on initial CBC. Vit B12 started IM. Continue oral thiamine and folate during hospitalization. Hemoglobin increased from 7.1 to 7.7 after initial transfusion, down again to 6.9 this morning. Labs reviewed; replacing B12/folate, iron stores high. Will check retic count and LDH in AM as she is also leukopenic. Leukopenia with WBC 1.8 this morning. May have underlying myelodysplasia and if not improving will need hematology opinion. Potassium was low previously but improved to 3.9 now. Will hold further IVF and monitor with po intake. Hypomagnesemia, Mg 1.8 currently and will monitor. Continue regular diet and monitor intake Urine culture growing E coli - continue Rocephin and follow C/S when available to determine po option for antibiotics.
[2016-10-17 23:28] VITALS: RESP 20; TEMP 98.1
[2016-10-18 07:39] VITALS: O2SAT 92
[2016-10-18] MEDS: SALINE FLUSH 10ml SYRINGE IVF PRN (08:16)
[2016-10-18] MEDS: CYANOCOBALAMIN (B-12) 1,000mcg/ml INJECTION IM SCH (08:16)
[2016-10-18] MEDS: CEFTRIAXONE 1 G in NS 100 ML IV SCH (08:17)
[2016-10-18] MEDS: FOLIC ACID 1 MG TABLET PO SCH (08:17)
[2016-10-18 09:17] VITALS: BP 103/58; PULSE 115
--- NOTE | 2016-10-18 11:04 | Discharge Instructions ---
Discharge Plan - Med Rec/Dispo Deisy Instructions: Anemia (GEN) Prescriptions: New Folic Acid [Folate] 1 mg PO DAILY #30 tablet Thiamine HCl 100 mg PO DAILY #30 tablet Cyanocobalamin (Vitamin B-12) [Vitamin B12] 2,500 mcg PO DAILY #30 tablet No Action Promethazine Tab [Phenergan Tab] 12.5 mg PO TID PRN PRN Reason: Prn Orders Discharge Instructions/Outpatient Orders: Final Provider Discharge Instructions Location: Determined By Patient - Disposition 01 Discharged Home, Self-Care
[2016-10-18] MEDS ORDERED: POTASSIUM ACID PHOSPHATE 500 MG TABLET PO SCH (12:00)
--- NOTE | 2016-10-18 13:20 | Discharge Summary ---
Discharge Information Date of admission: 10/15/16 14:08 Anticipated date of discharge: 10/18/16 Attending Physician: Kvng Lincoln MD Primary care physician: Destiny Mccarthy APRN Consults: 10/15/16 15:18 Physician Consult [CONS] Routine Consulting Provider: Linus Amezcua Reason For Exam: Anemia Ordering Provider has Notified Human Relations Professor: No Comment: please call him 10/15/16 20:20 Consult to Anesthesiology [CONS] Routine Consulting Provider: TOMMY Floyd Reason For Exam: Normal Procedure - Discharge Diagnosis (1) Anemia Qualifiers: Anemia type: B12 deficiency Vitamin B12 deficiency anemia type: unspecified B12 deficiency Qualified Code(s): D51.9 - Vitamin B12 deficiency anemia, unspecified Status: Acute (2) Hypokalemia Problem Details: Not POA, improved with replacement Status: Acute (3) Leukopenia Qualifiers: Leukopenia type: neutropenia Status: Acute (4) UTI (urinary tract infection) Qualifiers: Urinary tract infection type: acute cystitis Hematuria presence: without hematuria Qualified Code(s): N30.00 - Acute cystitis without hematuria Problem Details: POA; E. Coli treated with rocephin x 4 days, symptoms resolved Status: Resolved (5) Daily consumption of alcohol Problem Details: Does not specify amount but drinking daily, states she plans to stop Status: Chronic (6) Depression Qualifiers: Depression Type: unspecified Qualified Code(s): F32.9 - Major depressive disorder, single episode, unspecified Status: Chronic (7) HTN (hypertension) Qualifiers: Hypertension type: essential hypertension Qualified Code(s): I10 - Essential (primary) hypertension Problem Details: BP stable during admission Status: Chronic - Procedures Procedures: EGD was done by Dr. Amezcua on 10/16 with no acute findings. Colonoscopy discussed for outpatient. - Laboratory Labs: 10/18/16 04:23 10/18/16 04:23 B12 low normal at 269, folate low normal as well at 2.9 Retic count (absolute) low at 0.0193 despite profound anemia; also with leukopenia, WBC improved as above prior to DC - Microbiology Urine culture rested with E. Coli; sensitive to rocephin Blood cultures NGTD History of Present Illness HPI: Patient is a 51-year-old female who presented to her primary care provider, Destiny Mcgill APRN at [facility] this morning for evaluation of dizziness, weakness and shortness of breath. She reports that she has been vomiting intermittently for the last 2-3 weeks. It was reported that lab had been obtained last week at [facility] in which indicated a hemoglobin of 8.4. Due to patient's acute symptoms, accompanied with her increase pallor. She was directed to the emergency room for acute evaluation and treatment. White count was found to be low at 3.4, RBCs 1.66, hemoglobin 7.1 , hematocrit 21.4, MCV 128.9, platelet count 273. Sodium 139, potassium 3.7, BUN 4, creatinine 0.6, glucose 91. AST is elevated at 89, ALT normal at 32. Bilirubin 1.3, troponin undetectable. Venous lactate 1.2, lipase 103, pro calcitonin 0.25. A urinalysis did reveal acute infection with 1+ protein, 3+ ketones, 2+ bilirubin, 4+ urobilinogen, 3+ leukocyte esterase, 30-50 WBCs with 2 + bacteria. A chest x-ray is obtained showing no acute cardiopulmonary findings. Patient's tachycardic on arrival to the emergency room at 122, temperature 98.1, respiration rate 18, blood pressure 128/60, room air saturations 99%. A rectal exam was obtained that was heme-negative. Given her acute symptomatic anemia, accompanied with tachycardia. The hospitalist services were contacted and accepted patient for inpatient admission for further evaluation and treatment. It is expected that her stay will be greater than 2 overnights. Objective Vital signs: Temperature 98.1 F 10/18/16 07:37 Pulse Rate 115 H 10/18/16 09:16 Respiratory Rate 20 10/18/16 07:37 Blood Pressure 103/58 10/18/16 09:16 Pulse Oximetry 92 10/18/16 07:37 Oxygen Delivery Method Room Air Oxygen Flow Rate 4 Weight: 100.7 kg - Constitutional Present: no acute distress, well nourished, well developed, cooperative - Routine HEENT Exam Head: Present: normocephalic, atraumatic Eye: Present: PERRL. Absent: conjunctival icterus ENT: Present: mucous membranes moist, oropharynx clear, external ear normal - Routine Respiratory Exam Present: CTA bilaterally. Absent: wheezes, crackles - Routine Cardiovascular Exam Present: RRR, tachycardia - Routine Abdominal Exam Present: soft. Absent: tenderness, non distended, guarding - Routine Extremities Exam Absent: cyanosis, clubbing, edema - Routine Musculoskeletal Exam Musculoskeletal: Present: no tenderness, no erythema - Routine Neurological Exam Present: alert, oriented X3. Absent: tremors - Routine Psychiatric Exam Present: normal affect, cooperative Hospital Course This is a general summary of the patient's hospital course. For more details refer to the complete medical record. Hospital course: 10/15/16- Admission Admit patient to inpatient status under the care of Dr. Lincoln for symptomatic anemia, leukopenia, urinary tract infection. Type/Cross/Give 1 unit of packed red blood cells for symptomatic anemia with hemoglobin 7.[address] Amezcua for further surgical evaluation and treatment. Did discuss with patient that she may require further GI scope evaluation. Will obtain iron studies including ferritin, iron, folate and vitamin B12. Protonix 40 milligrams IV twice a day for GI protection. Concern for gastritis secondary to routine alcohol use. Will give folate and thiamine given history of routine alcohol use. Normal saline with 20 of KCl at 75 ML per hour for gentle hydration. UA obtained in the ER indicating a UTI. Patient started on Rocephin 1 gm IV daily. Urine culture pending. Will recheck CBC and CMP tomorrow morning to follow blood counts, renal function and electrolytes. At time of discharge medical care will return to primary care provider at [facility] 10/16[facility]16 EGD performed today by Dr Amezcua - no acute finding. No ulcer or gastritis. Will decrease Protonix to once a day. Do not feel need to continue PPI in outpatient setting. Would recommend colonoscopy due to her age and anemia. Likely can have done later in outpatient setting by Dr Amezcua. Folate and Vit B12 levels low normal - fits with Macrocytosis noted on initial CBC. Vit B12 started IM. Continue thiamine and Folate during hospitalization- change to oral. Hemoglobin increased from 7.1 to 7.7 last night post transfusion. HGB 7.6 this am. Recheck HGB this afternoon. Will have nursing get patient up and ambulate to assess symptoms of anemia. Still Tachycardic. With only slight increase in hemoglobin post transfusion, likely need repeat transfusion. Potassium with decrease to 3.2 this am despite IVF having potassium. IV Boluses given this am. Recheck potassium this afternoon with Blood counts to assess response to potassium replacement. Diet advance to regular-monitor for return of nausea (outpatient N/V x2 weeks prior to admission. Urine culture growing E coli - continue Rocephin, check C/S. 10/17/16 Symptomatic anemia, as noted below; receiving PRBC this morning again (1 unit) EGD performed 10/[address] Amezcua - no acute finding. No ulcer or gastritis. Will stop IV protonix and monitor for symptoms; no indication to continue chronically Would recommend colonoscopy due to her age and anemia. Discussed again today and she is agreeable. Likely can have done later in outpatient setting by Dr Amezcua. Folate and Vit B12 levels low normal - fits with Macrocytosis noted on initial CBC. Vit B12 started IM. Continue oral thiamine and folate during hospitalization. Hemoglobin increased from 7.1 to 7.7 after initial transfusion, down again to 6.9 this morning. Labs reviewed; replacing B12/folate, iron stores high. Will check retic count and LDH in AM as she is also leukopenic. Leukopenia with WBC 1.8 this morning. May have underlying myelodysplasia and if not improving will need hematology opinion. Potassium was low previously but improved to 3.9 now. Will hold further IVF and monitor with po intake. Hypomagnesemia, Mg 1.8 currently and will monitor. Continue regular diet and monitor intake Urine culture growing E coli - continue Rocephin and follow C/S when available to determine po option for antibiotics. 10/18/16 Patient feels well, Hb has improved to 9.0 and WBC improving as well. Patient requests discharge, plans to f/u with PCP this week. Discussed need to abstain from alcohol and she states she has no intention of drinking after discharge. Discussed need to continue folate/B12 supplements and have CBC done within the next week. Denies any dysuria, had 4 doses of rocephin so it was stopped after her dose today. Recommended she pursue outpatient colonoscopy with Dr. Amezcua. If she remains pancytopenic despite B12/folate repletion I have recommended she consider hematology opinion for bone marrow evaluation but acute bone marrow suppression may be due to antibiotics and/or infection. Time spent with patient: discharge greater than 30 minutes Discharge Plan - Med Rec/Dispo Referrals/Follow Up: FabioDestiny espitia APRN [Family Provider] - Linus Amezcua MD [Physician] - Deisy Instructions: Anemia (GEN) Prescriptions: New Folic Acid [Folate] 1 mg PO DAILY #30 tablet Thiamine HCl 100 mg PO DAILY #30 tablet Cyanocobalamin (Vitamin B-12) [Vitamin B12] 2,500 mcg PO DAILY #30 tablet No Action Promethazine Tab [Phenergan Tab] 12.5 mg PO TID PRN PRN Reason: Prn Orders Discharge Instructions/Outpatient Orders: Final Provider Discharge Instructions Location: Determined By Patient - Disposition 01 Discharged Home, Self-Care
== END 2016-10-18 13:10 | disposition home or self-care (01) | DRG 812 ==
LOC: ED 11:46 → MED 14:08
PROVIDERS: ADMIT Hospitalist; ATTEND Hospitalist
PROC: END.EGD (2016-10-16 09:50)

== ENCOUNTER 2017-05-17 11:49 | Inpatient (IN) ==
--- OUTSIDE RECORDS SUMMARY | 2017-05-17 12:21 | External Medical Summary ---
:1965 Author Organization eClinicalWorks Care Team Providers Name Role Phone Destiny Mccarthy Provider Role Unavailable Allergies No Known Allergies Problems Problem Type Condition ICD-9 Code Onset Dates Condition Status Problem Essential hypertension, benign 401.1 Active Assessment Other laboratory examination V72.69 Active Problem Eczema 691.8 Active Assessment Asymptomatic varicose veins 454.9 Active Assessment Essential hypertension, benign 401.1 Active Assessment Eczema 691.8 Active Medications Medication Code Code Instructions Start End Status Dosage System Date Date Triamcinolone NDC 88541-0 0.1 % Jan 25, Active 1 application Acetonide 004-15 Externally 2014 to affected Twice a day area Hydrochlorothiazide NDC 75906-3 12.5 MG Orally Jan 25, Active 1 capsule 080-01 Once a day 2013 Procedures Procedure Coding System Code Date OFFICE VISIT, EST-LOW COMPLEXITY (15 MIN.) CPT-4 74080 Feb 12, 2014 COMPLETE CBC W/AUTO DIFF WBC CPT-4 95187 Feb 12, 2014 Vital Signs Date/Time: Feb 12, 2014 Height 65.5 inches Weight 234.0 lbs Temperature 97.9 F Blood Pressure Diastolic 86 mm Hg Blood Pressure Systolic 124 mm Hg Cardiac Monitoring Heart Rate 82 Beats per Minute BMI 38.34 Index Respiratory Rate 16 per Minute Results Name Result Date Reference Range Unit CBC With Platelet and Differential Summary Purpose eClinicalWorks Submission
[2017-05-17] MEDS ORDERED: NS 1,000 ML IV ONE (12:22)
--- OUTSIDE RECORDS SUMMARY | 2017-05-17 12:22 | External Medical Summary ---
:1965 Author Organization [employer] Care Team Providers Name Role Phone Destiny Mccarthy Provider Role Unavailable Allergies No Known Allergies Problems Problem Type Condition ICD-9 Code Onset Dates Condition Status Problem Essential hypertension, benign 401.1 Active Medications No Known Medications Vital Signs Date/Time: Jan 25, 2014 Height 65.5 inches Weight 230.12 lbs Temperature 98.8 F Blood Pressure Diastolic 100, repeat:130 mm Hg Blood Pressure Systolic 150 mm Hg Cardiac Monitoring Heart Rate 80 Beats per Minute BMI 37.71 Index Respiratory Rate 16 per Minute Results No Known Results Summary Purpose eClinicalWorks Submission
--- OUTSIDE RECORDS SUMMARY | 2017-05-17 12:22 | External Medical Summary ---
:1965 Author Organization eClinicalWorks Care Team Providers Name Role Phone Alisa Cagle Provider Role Unavailable Allergies No Known Allergies Problems Problem Type Condition Code Onset Dates Condition Status Problem Essential hypertension, benign 401.1 Active Assessment Nausea with vomiting, unspecified R11.2 Active Problem Eczema 691.8 Active Medications Medication Code System Code Instructions Start Date End Date Status Dosage Zofran ODT [facility] 87160-954 4 MG Orally every July 24, as directed 9-00 6 hours as needed 2015 Procedures Procedure Coding System Code Date COMPREHENSIVE METABOLIC PANEL CPT-4 44950 July 30, 2015 HELICOBACTER AB IGG CPT-4 15146 July 30, 2015 COMPLETE CBC W/AUTO DIFF WBC CPT-4 47765 July 30, 2015 Results Name Result Date Reference Range Unit Abnormality Flag eGFR ----eGFR >60 99412675 >60 mL/min Comprehensive Metabolic Panel (CMP) ----Anion Gap 13 66741377 3-20 ----AST (SGOT) 114 70263485 5-34 U/L H ----Globulin 2.5 41603031 1.8-4.0 g/dL ----Albumin 3.9 22491519 3.5-5.0 g/dL ----CO2 26 45475302 22-31 mEq/L ----Chloride 94 60639763 99-111 mEq/L L ----Potassium 3.3 55225193 3.5-5.2 mEq/L L ----Sodium 133 65308703 135-144 mEq/L L ----Alkaline Phosphatase 141 86576150 40-150 U/L ----Bilirubin Total 1.1 77663854 0.2-1.2 mg/dL ----ALT (SGPT) 41 30771814 0-55 U/L ----Protein 6.4 43509383 6.4-8.3 g/dL ----Glucose 116 97688657 70-99 mg/dL H ----BUN 4 56265656 10-20 mg/dL L ----Creatinine 0.80 80547428 0.57-1.11 mg/dL ----Calcium 9.7 41194865 8.9-10.5 mg/dL CBC With Platelet and Differential ----MCHC 33.4 46263241 32.0-36.0 g/dL ----MCH 36.2 27202899 27.0-32.0 pg H ----MPV 13.2 29863368 8.8-14.8 fL ----RDW 12.6 14879922 11.5-14.5 % ----Basophils 0 97331337 0-2 % ----Differential Manual 42417720 * ----Macrocytes Present 59805591 * ----Absolute Neutrophils 2.14 17502467 1.90-7.00 10*3 ----Absolute Lymphocytes 1.68 25811871 0.80-3.30 10*3 ----Platelet Count 210 66592955 150-400 K/uL ----Absolute Basophils 0.00 30436224 0.00-0.20 10*3 ----HCT 38.3 54820400 37.0-47.0 % ----Neutrophils 42 88513070 51-75 % L ----MCV 108.2 42790398 82.0-99.0 fL H ----RBC 3.54 16131765 4.00-5.20 10*6/uL L ----Absolute Monocytes 1.28 27691953 0.30-1.00 10*3 H ----Absolute Eosinophils 0.00 78432473 0.00-0.50 10*3 ----HGB 12.8 71325849 12.0-16.0 g/dL ----Eosinophils 0 48492519 0-4 % ----WBC 5.1 73156183 4.8-10.8 K/uL ----Lymphocytes 33 93533384 20-46 % ----Monocytes 25 41677846 4-11 % H Summary Purpose eClinicalWorks Submission
--- OUTSIDE RECORDS SUMMARY | 2017-05-17 12:22 | External Medical Summary ---
:1965 Author Organization eClinicalWorks Care Team Providers Name Role Phone Destiny Mccarthy Provider Role Unavailable Allergies No Known Allergies Problems Problem Type Condition ICD-9 Code Onset Dates Condition Status Problem Essential hypertension, benign 401.1 Active Problem Eczema 691.8 Active Medications No Known Medications Vital Signs Date/Time: Feb 12, 2014 Height 65.5 inches Weight 234.0 lbs Temperature 97.9 F Blood Pressure Diastolic 86 mm Hg Blood Pressure Systolic 124 mm Hg Cardiac Monitoring Heart Rate 82 Beats per Minute BMI 38.34 Index Respiratory Rate 16 per Minute Results No Known Results Summary Purpose eClinicalWorks Submission
--- OUTSIDE RECORDS SUMMARY | 2017-05-17 12:22 | External Medical Summary ---
:1965 Author Organization eClinicalWorks Care Team Providers Name Role Phone Alisa Cagle Provider Role Unavailable Allergies, Adverse Reactions, Alerts Substance Reaction Event Type N.K.D.A. Info Not Available Non Drug Allergy Problems Problem Type Condition Code Onset Dates Condition Status Problem Essential hypertension, benign 401.1 Active Assessment Nausea with vomiting, unspecified R11.2 Active Problem Eczema 691.8 Active Assessment Alcohol dependence with withdrawal 303.90 Active Medications Medication Code System Code Instructions Start Date End Date Status Dosage Zofran ODT [facility] 50025-573 4 MG Orally every July 24, as directed 9-00 6 hours as needed 2015 Procedures Procedure Coding System Code Date MONOSPOT CPT-4 46623 July 25, 2015 SED RATE CPT-4 98922 July 25, 2015 HYDRATION IV INFUSION, INIT CPT-4 69684 July 25, 2015 OFFICE VISIT, EST-LOW COMPLEXITY (15 MIN.) CPT-4 82445 July 25, 2015 URINALYSIS, IN HOUSE CPT-4 34219 July 25, 2015 URINE CULTURE CPT-4 26992 July 25, 2015 IH CMP CPT-4 94155 July 25, 2015 COMPLETE CBC W/AUTO DIFF WBC CPT-4 42545 July 25, 2015 INJECTION (plus drug) CPT-4 63960 July 25, 2015 PHENERGAN 25MG CPT-4 J2550 July 25, 2015 Vital Signs Date/Time: July 25, 2015 Temperature 97.7 F Height 65.5 in Weight 260.4 lbs Blood Pressure Diastolic 98 mm Hg Blood Pressure Systolic 137 mm Hg Cardiac Monitoring Heart Rate 123 /min BMI 42.67 Index Respiratory Rate 18 /min Results Name Result Date Reference Range Unit Abnormality Flag Sedimentation Rate ----Sedimentation 12 20150725 0-23 mm/h Rate Monospot ----Heterophile Ab Negative 20150725 Negative Screen In House Urinalysis, automated ----PRO >=300 20150725 ----pH 5.5 20150725 ----BLO neg 20150725 ----SG >=1.030 20150725 ----KET >=160 20150725 ----DINORAH neg 20150725 ----Color dk. agustin 20150725 ----URO >=8.0 20150725 ----Clarity clear 20150725 ----GLU 100 20150725 ----NIT neg 20150725 ----TATIANA large 20150725 CBC With Platelet and Differential ----MCHC 33.7 02533319 32.0-36.0 g/dL ----MCH 36.6 68613627 27.0-32.0 pg H ----MPV 13.0 06818657 8.8-14.8 fL ----RDW 12.8 76407382 11.5-14.5 % ----Basophils 1 64701620 0-2 % ----Differential Manual 20150725 * ----Macrocytes Present 20150725 * ----Absolute 1.46 45443811 1.90-7.00 10*3 L Neutrophils ----Absolute 1.09 82811076 0.80-3.30 10*3 Lymphocytes ----Platelet Count 154 20150725 150-400 K/uL ----Absolute 0.03 47225503 0.00-0.20 10*3 Basophils ----HCT 40.6 78981577 37.0-47.0 % ----Neutrophils 43 71500214 51-75 % L ----MCV 108.6 00831146 82.0-99.0 fL H ----RBC 3.74 85072130 4.00-5.20 10*6/uL L ----Absolute 0.82 78826856 0.30-1.00 10*3 Monocytes ----Absolute 0.00 27571414 0.00-0.50 10*3 Eosinophils ----HGB 13.7 38672372 12.0-16.0 g/dL ----Eosinophils 0 21553579 0-4 % ----WBC 3.4 94492222 4.8-10.8 K/uL L ----Lymphocytes 32 94896255 20-46 % ----Monocytes 24 23047380 4-11 % H In House CMP ----Creatinine 0.8 20150725 0.6 - 1.2 mg/DL ----BUN 3* 20150725 7 - 22 mg/DL ----Calcium 10.2 20150725 8.0 - 10.3 mg/DL ----Glucose 108 20150725 73 - 118 mg/DL ----Chloride 92* 20150725 98 - 108 mmol/L ----CO2 18* 20150725 18 - 33 mmol/L ----Potassium 4.1 20150725 3.6 - 5.1 mmol/L ----Sodium 135 20150725 128 - 145 mmol/L ----EGFR >60 20150725 ----Total Protein 7.8 20150725 6.4 - 8.1 G/DL ----ALT 56* 20150725 10 - 47 u/L ----AST 145* 20150725 11 - 38 u/L ----Total Bilirubin 2.2* 20150725 0.2 - 1.6 mg/DL ----Albumin 4.6 20150725 3.3 - 5.5 g/DL ----Alkaline 128 20150725 53 - 128 u/L Phosphatase Urine Culture ----Urine Culture Source: Urine [id number] Collected: 07/25/15 09:24 Summary Purpose eClinicalWorks Submission
--- OUTSIDE RECORDS SUMMARY | 2017-05-17 12:22 | External Medical Summary ---
:1965 Author Organization eClinicalWorks Care Team Providers Name Role Phone Destiny Mccarthy Provider Role Unavailable Allergies No Known Allergies Problems Problem Type Condition ICD-9 Code Onset Dates Condition Status Assessment Eczema 691.8 Active Assessment Essential hypertension, benign 401.1 Active Problem Essential hypertension, benign 401.1 Active Medications Medication Code Code Instructions Start End Status Dosage System Date Date Hydrochlorothiazide NDC 62030-7 12.5 MG Orally Jan 25, Active 1 capsule 080-01 Once a day 2013 Triamcinolone NDC 79063-4 0.1 % Jan 25, Active 1 application Acetonide 004-15 Externally 2014 to affected Twice a day area Procedures Procedure Coding System Code Date COMPLETE CBC W/AUTO DIFF WBC CPT-4 56359 Jan 25, 2014 TSH CPT-4 02216 Jan 25, 2014 COMPREHENSIVE METABOLIC PANEL CPT-4 74149 Jan 25, 2014 OFFICE VISIT, EST-LOW COMPLEXITY (15 MIN.) CPT-4 06245 Jan 25, 2014 Vital Signs Date/Time: Jan 25, 2014 Height [...]
--- NOTE | 2017-05-17 12:27 | Emergency Department Report ---
General Adult HPI - General Chief complaint: Medical Emergency Stated complaint: fall Time Seen by Provider: 05/17/17 12:10 Source: patient, EMS, RN notes reviewed Mode of arrival: EMS Limitations: no limitations - History of Present Illness HPI narrative: Patient is brought to the emergency department by EMS after they were called to help lift her off the floor after a fall from the toilet. She states she has a very low toilet and was just too weak to stand up and went to the floor. Denies any pain from that fall. After arrival, EMS noted patient's jaundice skin and scleral and recommended she come to the ER. Patient appears much older than her stated age. has been feeling very weak the past few weeks but did not notice the color of her skin. Patient denies hx of liver issues ; states she drinks some whiskey "one drink a day" but when asked to clarify, she states "too much." Started drinking about 8-10 years ago because she was "tense" She stopped drinking for a month at some time because she was told to and did, denies seizures during that time; and then resumed drinking daily. Denies smoking. Patient was hospitalized in August or September per her report for anemia and after d/c she did not follow up with a provider. She lives alone and really has no one close by. She has no PCP. Patient denies bloody stools or hematemesis; stools are green in color. Patient reports URI sx the past week and has been taking OTC mucinex but denies tylenol use. MD complaint: weakness, jaundice Onset (ago): week(s) Associated symptoms: cough, loss of appetite, weakness Treatments prior to arrival: none - Related Data Home Medications Medication Instructions Recorded Confirmed guaiFENesin [Cough Syrup] 100 mg PO Q4H PRN 05/17/17 05/17/17 Previous Rx's Medication Instructions Recorded Cyanocobalamin (Vitamin B-12) 2,500 mcg PO DAILY #30 tab 10/18/16 [Vitamin B12] Thiamine HCl 100 mg PO DAILY #30 tab 10/18/16 Allergies Allergy/AdvReac Type Severity Reaction Status Date / Time aspirin [From Naomy Aspirin] Allergy Intermediate Rash Verified 05/17/17 12:24 Review of Systems All systems: reviewed and negative except as stated Constitutional: Reports: as per HPI, weakness. Denies: fever, chills Eyes: Denies: eye pain ENT: Denies: ear pain, throat pain Cardiovascular: Denies: chest pain, palpitations, dyspnea on exertion, orthopnea Respiratory: Reports: as per HPI, cough. Denies: dyspnea, wheezes, hemoptysis Gastrointestinal: Reports: as per HPI, other (abdomen feels "tight" ). Denies: nausea, vomiting, diarrhea, constipation, hematemesis, melena, hematochezia Genitourinary: Reports: as per HPI. Denies: urgency, dysuria, frequency Musculoskeletal: Denies: back pain, joint swelling Integumentary: Reports: jaundice Neurological: Reports: as per HPI, weakness. Denies: headache, numbness, paresthesias Psychiatric: Reports: anxiety, depression [facility] Patient Stated Medical History Hypertension Yes Sleep Apnea Yes Hx Urinary Tract Infection Yes Anemia Yes Osteoarthritis Yes: knees Blood Transfusions Yes Depression Yes Post Menopausal Yes: 2014 Surgical History: Denies PSH - Social History Smoking status: Never smoker Alcohol intake frequency: other (states daily drinker; does not elaborate) Current residence: Apartment/Private Home Physical Exam - Limitations Limitations: no limitations - General General appearance: alert, in no apparent distress - Normal Exams: Head:: Normocephalic without trauma Eyes:: Pupils are PERRLA w/ EOMI, No scleral icterus, irritation, or foreign bodies noted ENMT:: No facial trauma, nasal exudates, pharyngeal erythema, or exudates are noted Neck:: Full range of motion, without adenopathy, JVD, bruits or thyromegaly Lymphatic:: No lymphadenopathy, or lymphedema noted Musculoskeletal:: No tenderness, or deformity noted, good range of motion, all extremities - Expanded Respiratory Exam Location: Left: decreased breath sounds, Right: decreased breath sounds, Lower: decreased breath sounds - Abdominal Exam Abdominal exam: Present: soft, distention, diminished bowel sounds. Absent: tenderness, guarding, rebound, rigidity, Hughes's sign - Skin Skin exam: Present: other (pronounced jaundice, scleral jaundice ) - Neurological Exam Neurological exam: Present: alert, oriented X3, CN II-XII intact, other (slow verbal ) - Psychiatric Psychiatric exam: Present: other (somewhat flat affect, slow verbal responses but is a good historian ) Course - Consultations Consultation #1: Dr Hall Time: 13:20 (would like gallbladder sono to r/o obstruction ) Consultation #2: Dr Lincoln Time: 14:30 (normal common bile duct; will accept patient ) Vital Signs Temperature 98.9 F 05/17/17 11:59 Pulse Rate 115 H 05/17/17 11:59 Respiratory Rate 20 05/17/17 11:59 Blood Pressure 110/56 05/17/17 11:59 Pulse Oximetry 95 05/17/17 11:59 Temperature 98.9 F 05/17/17 11:59 Pulse Rate 115 H 05/17/17 11:59 Respiratory Rate 20 05/17/17 11:59 Blood Pressure 110/56 05/17/17 11:59 Pulse Oximetry 95 05/17/17 11:59 Medical Decision Making - Differential Diagnosis cirrhosis, , bile duct obstruction, sepsis, ascites, - Lab Data Result diagrams: 05/17/17 12:12 05/17/17 12:12 Lab Results 05/17/17 05/17/17 05/17/17 Range/Units 12:12 12:12 12:12 WBC 13.1 H (4.5-11.0) T/MM3 RBC 2.67 L (4.00-5.20) M/MM3 Hgb 10.8 L (12-16) GM/DL Hct 33.3 L (36-46) % MCV 124.7 H (80-100) UM3 MCH 40.4 H (26-34) UUG MCHC 32.4 (31-37) GM/DL RDW Std Deviation 66.1 H (36.9-50.2) FL Plt Count 208 (130-400) T/MM3 MPV 12.7 H (9.4-12.4) UM3 Immature Gran % (Auto) 0.4 (0.0-0.5) % Neut % (Auto) 81.8 H (33-66) % Lymph % (Auto) 9.4 L (23-45) % [place] % (Auto) 8.1 (0-9.0) % Eos % (Auto) 0.2 (0-4) % Baso % (Auto) 0.1 (0-2) % Neut # (Auto) 10.8 H (1.8-7.7) T/MM3 Lymph # (Auto) 1.2 (1-4.8) T/MM3 [place] # (Auto) 1.1 H (0-0.8) T/MM3 Eos # (Auto) 0.0 (0-0.5) T/MM3 Baso # (Auto) 0.0 (0-0.2) T/MM3 Abs Immat Gran (auto) 0.05 H (0.00-0.03) T/MM3 INR 1.32 H (0.99-1.21) Turbidity < 20 (0-20) Sodium 131 L (134-144) MEQ/L Potassium 4.4 (3.6-5) MEQ/L Chloride 93 L (98-107) MEQ/L Carbon Dioxide 21 L (22-30) MEQ/L Anion Gap 17 H (5-15) MEQ/L BUN 10.0 (7-17) MG/DL Creatinine 0.6 L (0.7-1.2) MG/DL GFR Calculation 105 BUN/Creatinine Ratio 17 (6-26) RATIO Glucose 123 H (65-110) MG/DL Calculated Osmolality 253 L (261-280) MOSM/KG Calcium 9.3 (8.4-10.2) MG/DL Total Bilirubin 10.50 H (0.20-1.30) MG/DL Icterus Index 4 (0-7) AST 265 H (14-36) U/L ALT 41 (9-52) U/L Alkaline Phosphatase 297 H (38-126) U/L Ammonia Cancelled Troponin I < 0.012 (0-0.12) ng/ml Total Protein 8.0 (6.3-8.2) G/DL Albumin 3.3 L (3.5-5.0) G/DL Globulin 4.7 H (2.4-3.6) G/DL Albumin/Globulin Ratio 0.7 L (1.1-2.2) RATIO Lipase 73 (23-300) U/L Plasma Lactate Cancelled Specimen Hemolysis 17 (0-25) Alcohol, Quantitative (<10) MG/DL 05/17/17 05/17/17 Range/Units 12:37 12:37 WBC (4.5-11.0) T/MM3 RBC (4.00-5.20) M/MM3 Hgb (12-16) GM/DL Hct (36-46) % MCV (80-100) UM3 MCH (26-34) UUG MCHC (31-37) GM/DL RDW Std Deviation (36.9-50.2) FL Plt Count (130-400) T/MM3 MPV (9.4-12.4) UM3 Immature Gran % (Auto) (0.0-0.5) % Neut % (Auto) (33-66) % Lymph % (Auto) (23-45) % [place] % (Auto) (0-9.0) % Eos % (Auto) (0-4) % Baso % (Auto) (0-2) % Neut # (Auto) (1.8-7.7) T/MM3 Lymph # (Auto) (1-4.8) T/MM3 [place] # (Auto) (0-0.8) T/MM3 Eos # (Auto) (0-0.5) T/MM3 Baso # (Auto) (0-0.2) T/MM3 Abs Immat Gran (auto) (0.00-0.03) T/MM3 INR (0.99-1.21) Turbidity (0-20) Sodium (134-144) MEQ/L Potassium (3.6-5) MEQ/L Chloride (98-107) MEQ/L Carbon Dioxide (22-30) MEQ/L Anion Gap (5-15) MEQ/L BUN (7-17) MG/DL Creatinine (0.7-1.2) MG/DL GFR Calculation BUN/Creatinine Ratio (6-26) RATIO Glucose (65-110) MG/DL Calculated Osmolality (261-280) MOSM/KG Calcium (8.4-10.2) MG/DL Total Bilirubin (0.20-1.30) MG/DL Icterus Index (0-7) AST (14-36) U/L ALT (9-52) U/L Alkaline Phosphatase (38-126) U/L Ammonia 23 Troponin I (0-0.12) ng/ml Total Protein (6.3-8.2) G/DL Albumin (3.5-5.0) G/DL Globulin (2.4-3.6) G/DL Albumin/Globulin Ratio (1.1-2.2) RATIO Lipase (23-300) U/L Plasma Lactate 3.8 H Specimen Hemolysis (0-25) Alcohol, Quantitative <10 (<10) MG/DL Disposition Clinical Impression: Elevated liver enzymes, Hepatic encephalopathy Disposition: 02 To [facility] [place] Prescriptions: No Action Thiamine HCl 100 mg PO DAILY #30 tab Cyanocobalamin (Vitamin B-12) [Vitamin B12] 2,500 mcg PO DAILY #30 tab guaiFENesin [Cough Syrup] 100 mg PO Q4H PRN PRN Reason: Cough Time of Disposition: 14:41 - Seen By: lani
[2017-05-17] MEDS ORDERED: THIAMINE 100 MG, FOLIC ACID INJ 1 MG, MULTI-VIT INFUSION 10 ML in NS 1,000 ML IV ONE (13:04)
--- NOTE | 2017-05-17 13:11 | XRay Report ---
Indication: weakness XR chest 1V: Comparison: 10/15/2016 Technique: Portable upright AP chest and lateral view Findings: Patient shows basilar atelectatic changes which are more prominent on the previous study. Patient had shown some mild elevation of the right diaphragm on the old study but this has increased slightly and there is more linearity in both lung bases now present. The heart, mediastinum and central vascularity are similar to the previous study. No acute new bony findings. Impression: Increasing bibasilar atelectatic changes since the previous examination. Heart size remains unremarkable. .
--- NOTE | 2017-05-17 14:28 | Ultrasound Report ---
Indication: elevated LFT/r/o obstruction US gall bladder: Comparison: None Technique: Real-time and color flow imaging provided Findings: Liver: Diffuse fatty infiltration. There seems to be some fluid possibly stranding the liver as well as in the right lung base. Gallbladder shows multiple stones with wall thickness at 3 mm which is the upper range of normal. Common duct was within normal limits. Right kidney is unremarkable. Pancreas difficult to visualize due to midline gas. Aorta and vena cava are also somewhat difficult to visualize due to midline gas but showed no obvious abnormality. Impression: 1. Diffuse fatty infiltration of the liver. 2. Small amount of ascites and some potential right-sided pleural fluid. 3. Stones in the gallbladder with mild wall thickness. There also may be some polyps is are seem to be some potential areas appearing to the wall which did not show classic shadowing. .
[2017-05-17] MEDS ORDERED: PIPERACILLIN/TAZOBACTAM 3.375 GM in NS 100 ML IV SCH (14:45)
[2017-05-17] MEDS ORDERED: ONDANSETRON 4 MG/2 ML INJECTION IVP PRN (15:42)
[2017-05-17 15:57] VITALS: BMI 32.5
[2017-05-17] MEDS: NS 1,000 ML IV SCH (16:31)
[2017-05-17] MEDS: FOLIC ACID 5 MG/ML INJECTION IVP SCH (16:35)
[2017-05-17] MEDS: THIAMINE 200mg/2ml INJECTION IVP SCH (16:39)
[2017-05-17] MEDS: PANTOPRAZOLE 40 MG INJECTION IVP SCH ×2 (17:45→22:25)
--- NOTE | 2017-05-17 17:56 | History & Physical Report ---
History of Present Illness Date: 05/17/17 Chief complaint: weakness HPI: Patient is a 51-year-old female who is brought in by EMS to the emergency room due to severe weakness. She tells the story that she was unable to get up off of her very low toilet seat so she lowered herself to the floor. She reports her symptoms started yesterday. She describes a sudden onset of weakness and cough. She says she "drank too much cough syrup." She complains that her abdomen is swollen and feels tight. She doesn't really complain of pain. She's had diarrhea for weeks. She has dark urine but no dysuria, she does have some frequency and incontinence which is not normal for her. She tells me she has no nausea or vomiting yet she told the nurse that she vomits daily. She tells me she drinks 4 shots of whiskey with water or Crystal light in the morning and then drinks water the rest of the day. She told the nurse that she was drinking much more than that but decreased the amount she drank in August because she was "afraid." Review of Systems All systems PM: 10-point ROS was reviewed, no additional remarkable complaints except Past Medical History Medical History Other HEENT JAUNDICED EYES Hypertension Yes: DOES NOT TAKE MEDS Sleep Apnea Yes Hx Urinary Tract Infection Yes Anemia Yes Osteoarthritis Yes: knees Blood Transfusions Yes Depression Yes Post Menopausal Yes: 2014 Alcohol abuse Yes Surgical History: Denies PSH Family History: Father-diabetes, of an [place] Mother and sister health histories unknown. Family History Updates: Updated - Social History Smoking status: Never smoker Substance use type: does not use Alcohol intake frequency: 3 or more drinks per day (4 shots of whiskey daily) Housing: apartment Household members: none Current occupational status: disabled (patient is unsure why she is disabled.) Social history: No PCP. Has seen Destiny Mccarthy APRN in the past and wishes not to see her again. Names her previous neighbor, [place], as her DPOA-H. Her number is [phone] Medications Home Medications Medication Instructions Recorded Confirmed Type Multivit-Min/Folic Acid/Biotin 1 each PO DAILY 05/17/17 05/17/17 History [Women Multivit W-Biotin Gummy] Vitamin B-1 1 tab PO DAILY 05/17/17 05/17/17 History Vitamin D3 1 tab PO DAILY 05/17/17 05/17/17 History guaiFENesin [Cough Syrup] 100 mg PO Q4H PRN 05/17/17 05/17/17 History Allergies Allergy/AdvReac Type Severity Reaction Status Date / Time aspirin [From Naomy Aspirin] Allergy Intermediate Rash Verified 05/17/17 15:52 Exam Vital Signs: Temperature 97.6 F 05/17/17 15:55 Pulse Rate 101 H 05/17/17 17:34 Respiratory Rate 18 05/17/17 16:30 Blood Pressure 125/69 05/17/17 15:55 Pulse Oximetry 98 05/17/17 16:30 Height/Weight/BMI: Height 1.68 m Weight 91.5 kg Body Mass Index 32.5 - Constitutional Present: no acute distress, well nourished, well developed - Routine HEENT Exam Head: Present: normocephalic, atraumatic Eye: Present: EOMI, PERRL, conjunctival icterus ENT: Present: mucous membranes moist, oropharynx clear - Routine Neck Exam Present: supple. Absent: lymphadenopathy, thyromegaly - Routine Respiratory Exam Present: CTA bilaterally. Absent: dyspnea, wheezes - Routine Cardiovascular Exam Present: RRR, murmur - Routine Abdominal Exam Present: soft, tenderness (diffuse, most prominent right upper quadrant epigastric and suprapubic), distended, organomegaly. Absent: normoactive bowel sounds (hypoactive) Comments: Hepatomegaly - Routine Extremities Exam Present: edema (2+ pitting bilateral), normal capillary refill - Routine Skin Exam Present: dry, warm - Routine Neurological Exam Present: alert, oriented X3, CN II-XII intact - Routine Psychiatric Exam Present: normal affect, cooperative Results - Labs CBC & Chem 7: 05/17/17 12:12 05/17/17 12:12 Labs: Laboratory Tests 05/17/17 05/17/17 12:12 12:37 Total Bilirubin 10.50 H AST 265 H ALT 41 Alkaline Phosphatase 297 H Ammonia Cancelled 23 Troponin I < 0.012 Albumin 3.3 L Globulin 4.7 H Albumin/Globulin Ratio 0.7 L Lipase 73 Plasma Lactate Cancelled Laboratory Tests 05/17/17 05/17/17 12:37 15:55 Plasma Lactate 3.8 H 2.9 H Microbiology Results: Microbiology 05/17/17 14:54 Urine, Voided (Cc/notcc) Urine Culture - Preliminary Culture Initiated - Results Pending - ECG Data Tracing #1 Sinus tach. Rate 114 bpm - Imaging and Cardiology Chest x-ray Additional comments: Date of Exam: 05/17/17 Indication: weakness XR chest 1V: Findings: Patient shows basilar atelectatic changes which are more prominent on the previous study. Patient had shown some mild elevation of the right diaphragm on the old study but this has increased slightly and there is more linearity in both lung bases now present. The heart, mediastinum and central vascularity are similar to the previous study. No acute new bony findings. Impression: Increasing bibasilar atelectatic changes since the previous examination. Heart size remains unremarkable. US - abdomen Additional comments: Date of Exam: 05/17/17 Indication: elevated LFT/r/o obstruction US gall bladder: Liver: Diffuse fatty infiltration. There seems to be some fluid possibly stranding the liver as well as in the right lung base. Gallbladder shows multiple stones with wall thickness at 3 mm which is the upper range of normal. Common duct was within normal limits. Right kidney is unremarkable. Pancreas difficult to visualize due to midline gas. Aorta and vena cava are also somewhat difficult to visualize due to midline gas but showed no obvious abnormality. Impression: 1. Diffuse fatty infiltration of the liver. 2. Small amount of ascites and some potential right-sided pleural fluid. 3. Stones in the gallbladder with mild wall thickness. There also may be some polyps is are seem to be some potential areas appearing to the wall which did not show classic shadowing. Assessment and Plan (1) Acute hepatitis Current visit: Yes Status: Acute Assessment and Plan: Assessment Severe sepsis - SIRS: leukocytosis, tachycardia. Source: abdominal vs urine. Organ dysfx: elevated lactate Acute hepatitis - hyperbilirubinemia, transaminitis, ascites Hepatic encephalopathy UTI Fatty infiltration of the liver Leukocytosis Macrocytic anemia Hyponatremia (POA) Tachycardia Alcohol abuse HTN Sleep apnea Depression Obesity with BMI 32.6 Plan Admit, IP, to the hospitalist service, Dr. Lincoln attending. Stay expected to exceed 2 midnights d/t severe sepsis and chronic comorbidities. Labs reviewed, additional labs ordered - B12, folate, urine culture. IVF's, IV Zosyn initiated for rehydration and coverage of abdominal/urinary pathogens. Seizure precautions, alcohol w/drawal protocol ordered including lorazepam PRN. Start thiamine, folate, MVI. SCD's for DVT prophylaxis. Pt wishes to be a DNR. Care will need to be established with a PCP upon DC. driver manager to assist with this. Case discussed with Dr. Lincoln. Further orders/POC per Dr. Lincoln. DVT Prophylaxis: SCD's GI Prophylaxis: Protonix Resuscitation Status: Do Not Resuscitate - Physician Narrative Physician: Kvng Lincoln MD Narrative: Date: 05/17/17 Time: 2114 Have independently interviewed and examined pt. Chart reviewed. Case discussed ED physician and my PA. Care plan developed with my supervision; agree with above. Presents to ED secondary to weakness. Not able to get off toilet at home - EMS activated. Reports drinks too much, needs to stop as it's killing her. Notes diffuse ab pain-not sounding like much change. Oral drive variable. Lungs: decreased CV: regular AB: soft Obese BS decreased Ext: +2 edema Plan: Inpatient admission for treatment of sepsis - suspect urinary source, but could be biliary. Zosyn for coverage. IVF. SCD. Protonix IV. Will need PT/OT. Thiamine and Folate IV. Check B12 and folate levels due to macrocytosis. Monitor lab. DNR per her request. Hospital Course Summary Disclaimer: The visit summary below is not to be considered part of the above Progress Note. Hospital Course: 05/17/17 Admit, IP, to the hospitalist service, Dr. Lincoln attending. Stay expected to exceed 2 midnights d/t severe sepsis and chronic comorbidities. Labs reviewed, additional labs ordered - B12, folate, urine culture. IVF's, IV Zosyn initiated for rehydration and coverage of abdominal/urinary pathogens. Seizure precautions, alcohol w/drawal protocol ordered including lorazepam PRN. Start thiamine, folate, MVI. SCD's for DVT prophylaxis. Pt wishes to be a DNR. Care will need to be established with a PCP upon DC. driver manager to assist with this. Case discussed with Dr. Lincoln. Further orders/POC per Dr. Lincoln.
[2017-05-17] MEDS: PIPERACILLIN/TAZOBACTAM 3.375 GM in NS 50 ML IV SCH (22:26)
[2017-05-18] MEDS: NS 1,000 ML IV SCH ×3 (04:44→16:04)
[2017-05-18] MEDS: PIPERACILLIN/TAZOBACTAM 3.375 GM in NS 50 ML IV SCH ×4 (04:44→22:12)
[2017-05-18] MEDS: FOLIC ACID 5 MG/ML INJECTION IVP SCH (09:18)
[2017-05-18] MEDS: PANTOPRAZOLE 40 MG INJECTION IVP SCH ×2 (09:21→22:10)
[2017-05-18] MEDS: CYANOCOBALAMIN (B-12) 500mcg TABLET PO SCH (09:26)
[2017-05-18] MEDS: THIAMINE 200mg/2ml INJECTION IVP SCH (09:26)
[2017-05-18] MEDS ORDERED: INFLUENZA VAC QIV 2017-18 (Fluarix*)(>=3yo) 0.5ml IM ONE (15:00)
[2017-05-18] MEDS ORDERED: INFLUENZA VAC. INJ. ADMIN CHARGE INJ ONE (16:03)
--- NOTE | 2017-05-18 20:57 | Progress Note ---
- Date 05/18/17 Subjective: F/U: Severe sepsis, Acute hepatitis, Hepatic encephalopathy Doing fair today. Tired and weak. Nausea -would like to try regular food. Still with ab pain, diffuse. Stools slightly loose. Not congested or SOA. Objective Vital signs: Temperature 98.5 F 05/18/17 17:20 Pulse Rate 97 05/18/17 17:20 Respiratory Rate 18 05/18/17 17:20 Blood Pressure 113/63 05/18/17 17:20 Pulse Oximetry 92 05/18/17 17:20 Height/Weight/BMI: Height 1.68 m Weight 99 kg Body Mass Index 32.5 - Constitutional Present: well nourished, well developed, obese, cooperative - Routine HEENT Exam Head: Present: normocephalic, atraumatic Eye: Present: EOMI, PERRL, scleral injection ENT: Present: mucous membranes moist - Routine Respiratory Exam Present: decreased breath sounds. Absent: respiratory distress - Routine Cardiovascular Exam Present: no murmur, tachycardia - Routine Abdominal Exam Present: soft, normoactive bowel sounds, non distended - Routine Extremities Exam Present: edema (+3BLE). Absent: cyanosis, clubbing - Routine Musculoskeletal Exam Musculoskeletal: Absent: normal strength - Routine Skin Exam Present: dry, warm - Routine Neurological Exam Present: alert, CN II-XII intact, moving all extremities, vision grossly intact , hearing grossly intact, normal speech. Absent: motor deficit, altered mental status - Routine Psychiatric Exam Present: normal affect, normal thought process, cooperative Results - Labs CBC & Chem 7: 05/18/17 04:01 05/18/17 04:01 Microbiology Results: Microbiology 05/17/17 14:54 Urine, Voided (Cc/notcc) Urine Culture - Final Mixed Bacterial Kathie Assessment and Plan (1) Acute hepatitis Current visit: Yes Status: Acute Assessment and Plan: Assessment Severe sepsis - SIRS: leukocytosis, tachycardia. Source: abdominal vs urine. Organ dysfx: elevated lactate Acute hepatitis - hyperbilirubinemia, transaminitis, ascites Hepatic encephalopathy UTI Fatty infiltration of the liver Leukocytosis Macrocytic anemia Hyponatremia (POA) Tachycardia Alcohol abuse HTN Sleep apnea Depression Obesity with BMI 32.6 Plan Decrease IVF to 50cc/hr. Continue with Zosyn for antimicrobial coverage. UA showing mixed growth. Ab symptoms decreasing slightly. Advance diet to regular PT/OT consulted to help strength. Will recheck CMP, Mg, Phos, NH4, and CBC in am secondary to Hepatitis/ medication use. DVT Prophylaxis: SCD's Resuscitation Status: Do Not Resuscitate - Time spent with patient Time with patient PN: 25 minutes - Physician Narrative Physician: Kvng Lincoln MD Narrative: Date: 05/18/17 Time: 2053 Hospital Course Summary Disclaimer: The visit summary below is not to be considered part of the above Progress Note. Hospital Course: 05/17/17 Admit, IP, to the hospitalist service, Dr. Lincoln attending. Stay expected to exceed 2 midnights d/t severe sepsis and chronic comorbidities. Labs reviewed, additional labs ordered - B12, folate, urine culture. IVF's, IV Zosyn initiated for rehydration and coverage of abdominal/urinary pathogens. Seizure precautions, alcohol w/drawal protocol ordered including lorazepam PRN. Start thiamine, folate, MVI. SCD's for DVT prophylaxis. Pt wishes to be a DNR. Care will need to be established with a PCP upon DC. concession manager to assist with this. Case discussed with Dr. Lincoln. Further orders/POC per Dr. Lincoln. 05/18/17 Mentation variable today-sleeping frequently. Awake and alert this evening. WBC with decrease to 7.5. HGB decreased to 8.3 (likely dilutional from IVF). Bili 8.3 with AST 265 and ALT 174. Sodium 131. Decrease IVF to 50cc/hr. Advance diet to regular. Continue with Zosyn for antimicrobial coverage. UA showing mixed growth. Ab symptoms decreasing slightly. PT/OT consulted to help strength.
[2017-05-19] MEDS: NS 1,000 ML IV SCH ×2 (00:09→15:28)
[2017-05-19] MEDS: PIPERACILLIN/TAZOBACTAM 3.375 GM in NS 50 ML IV SCH ×3 (04:47→15:27)
[2017-05-19] MEDS: CYANOCOBALAMIN (B-12) 500mcg TABLET PO SCH (08:55)
[2017-05-19] MEDS: PANTOPRAZOLE 40 MG INJECTION IVP SCH ×2 (08:56→20:36)
[2017-05-19] MEDS: FOLIC ACID 5 MG/ML INJECTION IVP SCH (08:56)
[2017-05-19] MEDS: THIAMINE 200mg/2ml INJECTION IVP SCH (08:59)
[2017-05-19] MEDS ORDERED: BISACODYL 10 MG SUPPOSITORY RECTALLY ONE (10:50)
[2017-05-19] MEDS ORDERED: FUROSEMIDE 20 MG/2 ML INJECTION IVP ONE (12:16)
[2017-05-19] MEDS ORDERED: LACTULOSE 20 GM/30 ML ORAL LIQUID PO PRN (12:18)
[2017-05-19] MEDS: SPIRONOLACTONE 25 MG TABLET PO SCH (13:30)
[2017-05-19] MEDS: PROPRANOLOL 10 MG TABLET PO SCH ×2 (13:30→20:37)
--- NOTE | 2017-05-19 15:53 | Progress Note ---
- Date 05/19/17 Subjective: Nadia stated that she is feeling weak, but otherwise is doing better. She states that her abdomen feels better after having a bowel movement today. She denies SOA or chest pain. She would like to go to rehab here in the hospital if possible. She commented on her leg swelling "I don't know what to do about it". Objective Vital signs: Temperature 99.3 F 05/19/17 15:29 Pulse Rate 100 05/19/17 15:29 Respiratory Rate 16 05/19/17 15:29 Blood Pressure 99/64 05/19/17 15:29 Pulse Oximetry 95 05/19/17 15:29 Rhythm: Normal Sinus Rhythm, Sinus Tachycardia Height/Weight/BMI: Height 1.68 m Weight 102 kg Body Mass Index 32.5 - Constitutional Present: no acute distress, well developed, obese - Routine HEENT Exam Eye: Present: PERRL, conjunctival icterus (subtle). Absent: scleral injection - Routine Respiratory Exam Present: decreased breath sounds, CTA bilaterally - Routine Cardiovascular Exam Present: RRR, S1, S2, tachycardia - Routine Abdominal Exam Present: soft, normoactive bowel sounds, non tender, distended (mild) - Routine Extremities Exam Present: edema (4+ up to knees, edema extends all the way up thigh and she has 1 + edema at the proximal thigh) - Routine Skin Exam Present: dry, pallor, warm - Routine Neurological Exam Present: alert, oriented X3, moving all extremities - Routine Psychiatric Exam Present: normal affect, normal thought process, cooperative Results - Labs CBC & Chem 7: 05/19/17 03:57 05/19/17 03:57 Microbiology Results: Microbiology 05/17/17 14:54 Urine, Voided (Cc/notcc) Urine Culture - Final Mixed Bacterial Adán Assessment and Plan (1) Acute hepatitis Current visit: Yes Status: Acute Assessment and Plan: Assessment Severe sepsis ruled out - the abnormal values noted on admission were more likely d/t liver dysfunction than an infectious source Severe sepsis suspected - SIRS: leukocytosis, tachycardia. Source: abdominal vs urine. Organ dysfx: elevated lactate Acute hepatitis - hyperbilirubinemia, transaminitis, ascites Suspect alcoholic liver disease Hepatic encephalopathy UTI - mixed adán on culture Hyponatremia (POA) Fatty infiltration of the liver Leukocytosis Macrocytic anemia - B12/Folate normal; most likely secondary to ETOH Tachycardia Alcohol abuse HTN Sleep apnea Depression Obesity with BMI 32.6 Plan Weight quickly trending up; 91.5 --> 102 kg. HR also increased today, 100s- 120s. IV Lasix ordered per Dr. Lincoln. May need extra diuresis, though will need to monitor BP closely, since it has been low-normal. DC IVF. In addition, Spironolactone and Propranolol initiated d/t liver disease and risk for portal HTN and esophageal varices. Continue to monitor Na, slightly improved to 132. Renal function stable. Phos 2.9, mg 2.0. LFTs improving. Total bili 10.5 --> 8.2 --> 9.0. Continue to follow labs closely. Nutritional supplements ordered - albumin low at 2.3. Severe sepsis ruled out - the abnormal values noted on admission were more likely d/t liver dysfunction than an infectious source. WBC normal and she has been afebrile. UC + mixed adán. Will DC Zosyn. Continue PT/OT. IRU screen ordered. Discussed with Dr. Lincoln and CM. DVT Prophylaxis: SCD's GI Prophylaxis: Protonix Resuscitation Status: Do Not Resuscitate - Time spent with patient Time with patient PN: 25 minutes - Physician Narrative Physician: Kvng Lincoln MD Narrative: Date: 05/19/17 Time: 1714 Have independently interviewed and examined pt. Chart reviewed. Case discussed with CM and my INFRASTRUCTURE TECH. Care plan developed with my supervision; agree with above. Doing fair. Reports was able to work with therapy-did feel therapy was helpful. Tolerated it. Appetite decrease. Did report nausea with breakfast. Breathing well-not congested or SOA. Lungs: decreased, no distress CV: regular AB: soft nt BS present EXT: +4 BLE. MSE: awake alert Plan: Can stop IVF and antibiotics - most likely septic markers at presentation due to her severe liver disease. Lasix given 20mg IV x1. Will start spironolactone 25mg and Propranolol 10mg BID. Need to monitor BP and renal/ electrolyte status with these medications. Starting low-potentially need to increase depending on her response. Encourage therapy-stressed the importance of improving her strength. Encourage ETOH avoidance. Overall, her prognosis is not good. Hospital Course Summary Disclaimer: The visit summary below is not to be considered part of the above Progress Note. Hospital Course: 05/17/17 Admit, IP, to the hospitalist service, Dr. Lincoln attending. Stay expected to exceed 2 midnights d/t severe sepsis and chronic comorbidities. Labs reviewed, additional labs ordered - B12, folate, urine culture. IVF's, IV Zosyn initiated for rehydration and coverage of abdominal/urinary pathogens. Seizure precautions, alcohol w/drawal protocol ordered including lorazepam PRN. Start thiamine, folate, MVI. SCD's for DVT prophylaxis. Pt wishes to be a DNR. Care will need to be established with a PCP upon DC. training manager to assist with this. Case discussed with Dr. Lincoln. Further orders/POC per Dr. Lincoln. 05/18/17 Mentation variable today-sleeping frequently. Awake and alert this evening. WBC with decrease to 7.5. HGB decreased to 8.3 (likely dilutional from IVF). Bili 8.3 with AST 265 and ALT 174. Sodium 131. Decrease IVF to 50cc/hr. Advance diet to regular. Continue with Zosyn for antimicrobial coverage. UA showing mixed growth. Ab symptoms decreasing slightly. PT/OT consulted to help strength. 05/19/17 Weight quickly trending up; 91.5 --> 102 kg. HR also increased today, 100s- 120s. IV Lasix ordered per Dr. Lincoln. May need extra diuresis, though will need to monitor BP closely, since it has been low-normal. DC IVF. In addition, Spironolactone and Propranolol initiated d/t liver disease and risk for portal HTN and esophageal varices. Continue to monitor Na, slightly improved to 132. Renal function stable. Phos 2.9, mg 2.0. LFTs improving. Total bili 10.5 --> 8.2 --> 9.0. Continue to follow labs closely. Nutritional supplements ordered - albumin low at 2.3. Severe sepsis ruled out - the abnormal values noted on admission were more likely d/t liver dysfunction than an infectious source. WBC normal and she has been afebrile. UC + mixed adán. Will DC Zosyn. Continue PT/OT. IRU screen ordered.
[2017-05-20] MEDS: PROPRANOLOL 10 MG TABLET PO SCH (08:46)
[2017-05-20] MEDS: PANTOPRAZOLE 40 MG INJECTION IVP SCH (09:14)
[2017-05-20] MEDS: FOLIC ACID 5 MG/ML INJECTION IVP SCH (09:14)
[2017-05-20] MEDS: THIAMINE 200mg/2ml INJECTION IVP SCH (09:14)
[2017-05-20] MEDS: SPIRONOLACTONE 25 MG TABLET PO SCH (09:16)
[2017-05-20] MEDS: CYANOCOBALAMIN (B-12) 500mcg TABLET PO SCH (09:16)
--- NOTE | 2017-05-20 10:50 | Progress Note ---
- Date 05/20/17 Subjective: Follow-up: 51-year-old with elevated bilirubin, generalized weakness, UTI on admission. Alcohol abuse. Patient is seen sitting in bed before breakfast. She reports she still feels very weak. Her legs have been hurting some. She reports she vomited After Breakfast Yesterday, but Has Had No Nausea or Vomiting since Then. States She's Had Incontinence of Her Bowel and Bladder and This Is Not Normal for Her. Nurses report yesterday she did have several large, loose, incontinent stools. She complains of occasional tightness in her abdomen. She states the clock on the wall was "spinning" last night and she knows this is not normal. She hasn't had any other auditory or visual hallucinations. Nurses report bright red blood in hat (aprox size of 1/2 dollar) with a very small, soft BM. Objective Vital signs: Temperature 96.8 F 05/19/17 22:06 Pulse Rate 88 05/20/17 09:00 Respiratory Rate 20 05/19/17 22:06 Blood Pressure 97/58 05/20/17 08:17 Pulse Oximetry 94 05/19/17 22:06 Rhythm: Normal Sinus Rhythm, Sinus Tachycardia Height/Weight/BMI: Height 1.68 m Weight 102 kg Body Mass Index 32.5 - Constitutional Present: no acute distress, well nourished, well developed - Routine HEENT Exam Head: Present: normocephalic, atraumatic Eye: Present: conjunctival icterus (improving) - Routine Respiratory Exam Present: CTA bilaterally. Absent: wheezes - Routine Cardiovascular Exam Present: RRR, no murmur - Routine Abdominal Exam Present: soft, tenderness (upper abdomen), non distended Comments: Fullness noted right upper quadrant and epigastrium. - Routine Extremities Exam Present: edema, normal capillary refill Comments: Edema extends from the feet all the way up to the lower abdomen. Pitting edema in the feet 4+, at least 2+ in the proximal thigh. - Routine Skin Exam Present: dry, pallor, warm - Routine Neurological Exam Present: alert, oriented X3, moving all extremities, normal speech - Routine Lymphatic Exam Lymphatic: Absent: adenopathy - Routine Psychiatric Exam Present: normal affect, normal thought process, cooperative Results - Labs CBC & Chem 7: 05/20/17 04:35 05/20/17 04:35 Microbiology Results: Microbiology 05/17/17 14:54 Urine, Voided (Cc/notcc) Urine Culture - Final Mixed Bacterial Adán Assessment and Plan (1) Acute hepatitis Current visit: Yes Status: Acute Assessment and Plan: Assessment Severe sepsis ruled out - the abnormal values noted on admission were more likely d/t liver dysfunction than an infectious source Severe sepsis suspected - SIRS: leukocytosis, tachycardia. Source: abdominal vs urine. Organ dysfx: elevated lactate Acute hepatitis - hyperbilirubinemia, transaminitis, ascites Suspect alcoholic liver disease Hepatic encephalopathy Bowel/bladder incontinence Hematochezia x 1 - not POA Diarrhea - POA UTI - mixed adán on culture Hyponatremia (POA) Hypokalemia-not POA Fatty infiltration of the liver Leukocytosis -resolved Macrocytic anemia - B12/Folate normal; most likely secondary to ETOH Tachycardia -resolved Alcohol abuse HTN Sleep apnea Depression Obesity with BMI 32.6 Plan Weight today 95.7 kg (Nurse thinks bed likely wasn't zeroed prior to yesterday' s wt of 102). Albumin continues to drop. 3.3-->2.3-->2.1. On nutritional supplements. Swelling persists/possibly worse. Will give albumin 25 IV now and repeat in 6 hrs. Give 20mg IV Lasix following each albumin infusion. In addition, Spironolactone and Propranolol initiated yesterday d/t liver disease and risk for portal HTN and esophageal varices. Potassium 3.3 today - replaced. Repeat in am. Continue to monitor Na., Has been averaging 131. LFTs continue to improve. Total bili 10.5 --> 8.2 --> 9.0-->6.4. Continue to follow labs closely. CMP in a.m. UC + mixed adán. Zosyn DC'd yesterday. Vitamin B12 is slightly elevated. Patient takes 2500 g at home. Decreased to 1000 g. Bright red blood with BM. Follow hgb. INR nl on admission. Not on anticoagulation. Check c. diff given diarrhea/bowel incontinence 05/20/2017-8:30 PM-I reviewed this chart, the patient history, and the DBA DEVELOPER's/PA 's documented findings as above. We discussed and formulated the assessment and plan as above with the additions below.-Dr. Retana The patient was asleep in her room but awakened fairly easily. She states she has some abdominal discomfort off and on. She has had some diarrheal stools. She did have a stool followed by some right red blood earlier today. She states she is eating and drinking okay. She states her edema in her legs is chronic. On exam she is drowsy but arousable. She is in no acute distress. Chest is clear to auscultation. Cardiovascular reveals a regular rate and rhythm. Abdomen is soft, moderately distended, she appears to have hepatomegaly, positive bowel sounds. Extremities reveal 4+ edema. Impression and plan Acute hepatitis likely secondary to alcohol -liver enzymes are trending down History of hepatic encephalopathy -currently on lactulose and doing well Probable cirrhosis Anasarca -agree with spironolactone, depending upon lab and vitals tomorrow can consider adding scheduled Lasix. We'll start low sodium diet and 1.8 L fluid restriction and monitor. Regarding C. difficile, the patient was started on metronidazole today. The patient states that she wants to go to IRU but does not think she has been accepted. The patient continues to have intermittent hypotension. She has not receive propranolol today due to borderline low blood pressure. Propranolol placed on hold for now. Recheck CBC and CMP tomorrow. Resuscitation Status: Do Not Resuscitate - Physician Narrative Physician: Iva Retana MD Narrative: Date: 05/20/17 Time: 1044 Hospital Course Summary Disclaimer: The visit summary below is not to be considered part of the above Progress Note. Hospital Course: 05/17/17 Admit, IP, to the hospitalist service, Dr. Lincoln attending. Stay expected to exceed 2 midnights d/t severe sepsis and chronic comorbidities. Labs reviewed, additional labs ordered - B12, folate, urine culture. IVF's, IV Zosyn initiated for rehydration and coverage of abdominal/urinary pathogens. Seizure precautions, alcohol w/drawal protocol ordered including lorazepam PRN. Start thiamine, folate, MVI. SCD's for DVT prophylaxis. Pt wishes to be a DNR. Care will need to be established with a PCP upon DC. travel agency manager to assist with this. Case discussed with Dr. Lincoln. Further orders/POC per Dr. Lincoln. 05/18/17 Mentation variable today-sleeping frequently. Awake and alert this evening. WBC with decrease to 7.5. HGB decreased to 8.3 (likely dilutional from IVF). Bili 8.3 with AST 265 and ALT 174. Sodium 131. Decrease IVF to 50cc/hr. Advance diet to regular. Continue with Zosyn for antimicrobial coverage. UA showing mixed growth. Ab symptoms decreasing slightly. PT/OT consulted to help strength. 05/19/17 Weight quickly trending up; 91.5 --> 102 kg. HR also increased today, 100s- 120s. IV Lasix ordered per Dr. Lincoln. May need extra diuresis, though will need to monitor BP closely, since it has been low-normal. DC IVF. In addition, Spironolactone and Propranolol initiated d/t liver disease and risk for portal HTN and esophageal varices. Continue to monitor Na, slightly improved to 132. Renal function stable. Phos 2.9, mg 2.0. LFTs improving. Total bili 10.5 --> 8.2 --> 9.0. Continue to follow labs closely. Nutritional supplements ordered - albumin low at 2.3. Severe sepsis ruled out - the abnormal values noted on admission were more likely d/t liver dysfunction than an infectious source. WBC normal and she has been afebrile. UC + mixed adán. Will DC Zosyn. Continue PT/OT. IRU screen ordered. 05/20/17 Weight quickly trending up; 91.5 --> 102 kg. Patient has not been weighed yet today. May need extra diuresis, though will need to monitor BP closely, since it has been low-normal. Potassium 3.3 today - replaced. Continue to monitor Na., Has been averaging 131. LFTs continue to improve. Total bili 10.5 --> 8.2 --> 9.0-->6.4. Albumin continues to drop. 3.3-->2.3-->2.1. Ammonia increasing. 23-->28-->32. Vitamin B12 is slightly elevated. Patient takes 2500 g at home. Decreased to 1000 g Bright red blood with BM. Follow hgb. INR nl on admission. Not on anticoagulation. Check c. diff given diarrhea/bowel incontinence Addendum entered and electronically signed by TOMMY Schafer 05/20/17 15:36 : Patient tested positive for C. difficile. Contact precautions initiated and Flagyl started.
[2017-05-20] MEDS ORDERED: ALBUMIN HUMAN 25gm (25%) 100ml IV ONE (13:30)
[2017-05-20] MEDS ORDERED: FUROSEMIDE 20 MG/2 ML INJECTION IVP ONE ×2 (15:00→23:00)
[2017-05-20] MEDS: MetroNIDAZOLE 500 MG TABLET PO SCH (18:17)
[2017-05-20] MEDS: PANTOPRAZOLE 40 MG TABLET PO SCH (18:17)
[2017-05-20] MEDS: SALINE FLUSH 10ml SYRINGE IVF PRN (20:02)
[2017-05-20] MEDS ORDERED: ALBUMIN HUMAN 100 ML IV ONE (21:00)
[2017-05-21] MEDS: PANTOPRAZOLE 40 MG TABLET PO SCH ×2 (05:37→16:52)
[2017-05-21] MEDS: SPIRONOLACTONE 25 MG TABLET PO SCH (09:07)
[2017-05-21] MEDS: FUROSEMIDE 20 MG TABLET PO SCH (09:07)
[2017-05-21] MEDS: MetroNIDAZOLE 500 MG TABLET PO SCH (09:07)
[2017-05-21] MEDS: FOLIC ACID 1 MG TABLET PO SCH (09:08)
[2017-05-21] MEDS: CYANOCOBALAMIN (B-12) 500mcg TABLET PO SCH (09:08)
--- NOTE | 2017-05-21 10:32 | Progress Note ---
- Date 05/21/17 Subjective: Patient was seen lying in bed. She appears to be depressed. She tells me that she did not get accepted into rehabilitation. When I read through her physical therapy notes she stated "I will not go to rehabilitation because they will not get 3 hours out of me. I won't do it." She does not want to go to a group home. "Nursing homes depress me." Discussed with her that at this point she cannot be dismissed home. She has got to get stronger which means she is going to have to participate with physical therapy and occupational therapy when they come around to see her. She reports her appetite is good. Objective Vital signs: Temperature 97.7 F 05/21/17 07:59 Pulse Rate 87 05/21/17 07:59 Respiratory Rate 18 05/21/17 07:59 Blood Pressure 98/56 05/21/17 07:59 Pulse Oximetry 96 05/21/17 07:59 Rhythm: Normal Sinus Rhythm, Sinus Tachycardia Height/Weight/BMI: Height 1.68 m Weight 95.7 kg Body Mass Index 32.5 - Constitutional Present: no acute distress, well nourished, well developed - Routine HEENT Exam Head: Present: normocephalic, atraumatic - Routine Respiratory Exam Present: CTA bilaterally. Absent: wheezes - Routine Cardiovascular Exam Present: RRR, no murmur - Routine Abdominal Exam Present: soft, tenderness (epigastric/right upper quadrant), non distended, organomegaly - Routine Extremities Exam Present: edema (4+ extending from feet to lower abdomen), normal capillary refill - Routine Skin Exam Present: dry, warm - Routine Neurological Exam Present: alert, oriented X3 - Routine Lymphatic Exam Lymphatic: Absent: adenopathy - Routine Psychiatric Exam Present: cooperative, depressed. Absent: normal affect (flat affect) Results - Labs CBC & Chem 7: 05/21/17 04:49 05/21/17 04:49 Microbiology Results: Microbiology 05/17/17 14:54 Urine, Voided (Cc/notcc) Urine Culture - Final Mixed Bacterial Adán Assessment and Plan (1) Acute hepatitis Current visit: Yes Status: Acute Assessment and Plan: Assessment Severe sepsis ruled out - the abnormal values noted on admission were more likely d/t liver dysfunction than an infectious source Severe sepsis suspected - SIRS: leukocytosis, tachycardia. Source: abdominal vs urine. Organ dysfx: elevated lactate Acute hepatitis - hyperbilirubinemia, transaminitis, ascites -likely related to alcohol abuse Anasarca C. difficile diarrhea-(Dx: 05/20/2017) Suspect alcoholic cirrhosis Hepatic encephalopathy Bowel/bladder incontinence Hematochezia x 1 - not POA Diarrhea - POA UTI - mixed adán on culture Hyponatremia (POA) Hypokalemia-not POA Fatty infiltration of the liver Leukocytosis -resolved Macrocytic anemia - B12/Folate normal; most likely secondary to ETOH Tachycardia -resolved Alcohol abuse HTN Sleep apnea Depression Obesity with BMI 32.6 Plan Flagyl was started yesterday for C. difficile. Dr. Mabry recommend switching to oral vancomycin as it has recently been named as first-line treatment for first episode of C. difficile. Start vancomycin 125 mg 4 times a day for at least 7 days. Propranolol, which was initiated this hospitalization for probable portal hypertension, was held due to hypotension. Sodium and potassium normalized today at 134 and 3.8 respectively. Total bili improving 10.5 --> 8.2 --> 9.0-->6.4-->5.8. CMP in a.m. She's had no further blood noted with her stools. Hemoglobin is stable. She was started on Lasix 20 mg by mouth daily for diuresis. Continues on spironolactone. She has been placed on sodium and fluid restrictions given her anasarca. Patient encouraged to work with therapy. Do not expect her to discharge before early next week. 05/21/2017-6 PM-I reviewed this chart, the patient history, and the ADMIRALTY LAWYER's/PA's documented findings as above. We discussed and formulated the assessment and plan as above with the additions below.-Dr. Retana The patient was seen in her room. She denies any pain. She was able to walk around in the room a little bit with physical therapy. She states she was limited because she started having diarrhea. She states she's had diarrhea for a long time. She was recently diagnosed with C. difficile. She denies any shortness of breath. She states her sister is coming from [place] tomorrow and would like to speak with the doctor. She states her sister is planning on being her DPOA for healthcare. The patient states she thinks her leg swelling is worse. Fluid status is very difficult to assess because she is incontinent of urine and we cannot measure accurate I&O's and bed weights have been fluctuating fairly significantly. On exam the patient is alert and in no acute distress. Chest is clear to auscultation. Cardiovascular reveals a regular rate and rhythm. Abdomen is soft , obese, nontender with positive bowel sounds. Extremities reveal 4+ edema. Impression and plan Probable Acute alcoholic hepatitis-improving Probable cirrhosis Ascites with severe peripheral edema likely secondary to alcoholic liver disease -continue spironolactone. Lasix was added today. May need to increase both spironolactone and Lasix tomorrow if edema is not improving. Continue with fluid restriction and low sodium diet. Discussed with patient. Vancomycin oral started today for C. difficile. Propranolol discontinued due to hypotension. Continue to encourage activity. Up in chair for meals. - Physician Narrative Narrative: Date: 05/21/17 Time: 1020 Hospital Course Summary Disclaimer: The visit summary below is not to be considered part of the above Progress Note. Hospital Course: 05/17/17 Admit, IP, to the hospitalist service, Dr. Lincoln attending. Stay expected to exceed 2 midnights d/t severe sepsis and chronic comorbidities. Labs reviewed, additional labs ordered - B12, folate, urine culture. IVF's, IV Zosyn initiated for rehydration and coverage of abdominal/urinary pathogens. Seizure precautions, alcohol w/drawal protocol ordered including lorazepam PRN. Start thiamine, folate, MVI. SCD's for DVT prophylaxis. Pt wishes to be a DNR. Care will need to be established with a PCP upon DC. field operations farm manager to assist with this. Case discussed with Dr. Lincoln. Further orders/POC per Dr. Lincoln. 05/18/17 Mentation variable today-sleeping frequently. Awake and alert this evening. WBC with decrease to 7.5. HGB decreased to 8.3 (likely dilutional from IVF). Bili 8.3 with AST 265 and ALT 174. Sodium 131. Decrease IVF to 50cc/hr. Advance diet to regular. Continue with Zosyn for antimicrobial coverage. UA showing mixed growth. Ab symptoms decreasing slightly. PT/OT consulted to help strength. 05/19/17 Weight quickly trending up; 91.5 --> 102 kg. HR also increased today, 100s- 120s. IV Lasix ordered per Dr. Lincoln. May need extra diuresis, though will need to monitor BP closely, since it has been low-normal. DC IVF. In addition, Spironolactone and Propranolol initiated d/t liver disease and risk for portal HTN and esophageal varices. Continue to monitor Na, slightly improved to 132. Renal function stable. Phos 2.9, mg 2.0. LFTs improving. Total bili 10.5 --> 8.2 --> 9.0. Continue to follow labs closely. Nutritional supplements ordered - albumin low at 2.3. Severe sepsis ruled out - the abnormal values noted on admission were more likely d/t liver dysfunction than an infectious source. WBC normal and she has been afebrile. UC + mixed adán. Will DC Zosyn. Continue PT/OT. IRU screen ordered. 05/20/17 Weight quickly trending up; 91.5 --> 102 kg. Patient has not been weighed yet today. May need extra diuresis, though will need to monitor BP closely, since it has been low-normal. Potassium 3.3 today - replaced. Continue to monitor Na., Has been averaging 131. LFTs continue to improve. Total bili 10.5 --> 8.2 --> 9.0-->6.4. Albumin continues to drop. 3.3-->2.3-->2.1. Ammonia increasing. 23-->28-->32. Vitamin B12 is slightly elevated. Patient takes 2500 g at home. Decreased to 1000 g Bright red blood with BM. Follow hgb. INR nl on admission. Not on anticoagulation. Check c. diff given diarrhea/bowel incontinence
[2017-05-21] MEDS: VANCOMYCIN 250mg/5ml ORAL LIQ PO SCH ×3 (11:13→21:14)
[2017-05-22] MEDS: PANTOPRAZOLE 40 MG TABLET PO SCH ×2 (05:54→17:40)
[2017-05-22] MEDS: VANCOMYCIN 250mg/5ml ORAL LIQ PO SCH ×4 (05:54→20:18)
[2017-05-22] MEDS: CYANOCOBALAMIN (B-12) 500mcg TABLET PO SCH (08:23)
[2017-05-22] MEDS: FOLIC ACID 1 MG TABLET PO SCH (08:23)
[2017-05-22] MEDS: FUROSEMIDE 20 MG TABLET PO SCH (08:23)
[2017-05-22] MEDS: SPIRONOLACTONE 25 MG TABLET PO SCH ×2 (08:23→20:18)
[2017-05-22] MEDS ORDERED: CHOLESTYRAMINE LIGHT 4 G PACKET PO PRN (13:23)
--- NOTE | 2017-05-22 13:31 | Progress Note ---
- Date 05/22/17 Subjective: Nadia is seen today in follow up. She reports that she is frustrated with her care. Is upset that nursing expects her to assist with completing ADLs. Is embarrassed that she has fecal incontinence due to diarrheal stools- wants to know "how long this is going to last". She was recently diagnosed with C.Diff, but I see she has had loose stools for quite some time prior to admission. She makes reference to bloody stools, but unclear if this is due to CDiff, actual blood in stool, or irritation in the sheldon-rectal area. D/W her that it is important that she be cleaned up adequately to prevent breakdown. She reports SOA, ongoing- possibly worsening. LE edema ongoing, possible worsening. She is tearful at times. Depressed, irritable mood. Reports sister is here from [place], and she wants to talk to the doctor. She will be coming up later today. I have reviewed the chart for information. Objective Vital signs: Temperature 98.2 F 05/22/17 08:00 Pulse Rate 111 H 05/22/17 08:00 Respiratory Rate 18 05/22/17 08:00 Blood Pressure 115/69 05/22/17 08:00 Pulse Oximetry 97 05/22/17 08:00 Rhythm: Normal Sinus Rhythm, Sinus Tachycardia Height/Weight/BMI: Height 1.68 m Weight 94.8 kg Body Mass Index 32.5 - Constitutional Present: mild distress, morbidly obese, disheveled - Routine HEENT Exam Head: Present: cushingoid faces Eye: Present: EOMI, PERRL, conjunctival icterus (+Scleral icterus), exophthalmos ENT: Present: mucous membranes moist Comments: She has atypical presentation of both TMJ areas- unclear if this is due to muscle wasting or her normal facial appearance. Skin is flushed vs. heavy makeup - cheeks only? - Routine Respiratory Exam Present: dyspnea, decreased breath sounds, distant breath sounds, diminished air movement - Routine Cardiovascular Exam Present: RRR, S1, S2, tachycardia Comments: Tachycardic, bounding pulse. Hyperdynamic heart tones. - Routine Abdominal Exam Present: normoactive bowel sounds, distended. Absent: rebound, guarding - Routine Extremities Exam Present: edema (Marked LE pitting edema. ) - Routine Musculoskeletal Exam Musculoskeletal: Present: limited range of motion, other (Muscle wasting, upper extremities). Absent: normal gait - Routine Skin Exam Present: intact, dry, jaundice - Routine Neurological Exam Present: alert, moving all extremities - Routine Lymphatic Exam Lymphatic: Present: lymphedema - Routine Psychiatric Exam Present: depressed, anxious. Absent: normal affect, good insight, good judgment Results - Labs CBC & Chem 7: 05/22/17 05:10 05/22/17 05:10 Microbiology Results: Microbiology 05/17/17 14:54 Urine, Voided (Cc/notcc) Urine Culture - Final Mixed Bacterial Adán +C.Diff - Impressions CT Impression: 1. Diffuse fatty infiltration of the liver. 2. Small amount of ascites and some potential right-sided pleural fluid. 3. Stones in the gallbladder with mild wall thickness. There also may be some polyps is are seem to be some potential areas appearing to the wall which did not show classic shadowing. . Assessment and Plan (1) Acute hepatitis Current visit: Yes Status: Acute Assessment and Plan: Assessment Severe sepsis ruled out - the abnormal values noted on admission were more likely d/t liver dysfunction than an infectious source Severe sepsis suspected - SIRS: leukocytosis, tachycardia. Source: abdominal vs urine. Organ dysfx: elevated lactate Acute hepatitis - hyperbilirubinemia, transaminitis, ascites -likely related to alcohol abuse Anasarca/Fluid overload C. difficile diarrhea-(Dx: 05/20/2017) Suspect alcoholic cirrhosis Hepatic encephalopathy Bowel/bladder incontinence Hematochezia x 1 - not POA Diarrhea - POA UTI - mixed adán on culture Hyponatremia (POA) Hypokalemia-not POA Fatty infiltration of the liver /Abnormal GB Leukocytosis -resolved Macrocytic anemia - B12/Folate normal; most likely secondary to ETOH Tachycardia -resolved Alcohol abuse HTN Sleep apnea Depression Obesity with BMI 32.6 05/22/17 She continues to have poor insight into her disease process and underlying issues. Acute vs. Acute on Chronic hepatic failure- ETOH as underlying presumed. Will assess Hep Panel as well. Need to assess CT abdomen/pelvis due to significant decline. Abnormal GB with possible polyps on sono. She is going to need to see GI at some point for further work up. Continue diuretics- will increase Lasix to IV, Increase Aldactone. Add KCL, but will need to monitor potassium closely. No lactulose as Ammonia has been normal, has diarrhea. C.Diff- acute vs. chronic due to prolonged diarrhea. PO Vancomycin per ID recommendations. Add cholestyramine for symptomatic support at this point. Needs barrier cream. Will assess echo due to hyperdynamic heart tones, severe fluid overload. Could have HF component to liver failure. Resume low dose propranolol for tachycardia- BP should support. Continue PPI BID due to risk of GI bleeding, but may worsen C.Diff. Monitor progress. Continue to encourage ambulation. She will need placement. Mood disorder likely/ETOH abuse- consider psych eval. +Exophthalmos- check TSH. Repeat labs in AM for stability. Hoping that diuresis will help her symptomatically. DVT Prophylaxis: SCD's GI Prophylaxis: Protonix Resuscitation Status: Do Not Resuscitate - Time spent with patient Time with patient PN: 35 minutes - Physician Narrative Physician: Kvng Lincoln MD Narrative: Date: 05/22/17 Time: 1734 Have independently interviewed and examined pt. Chart reviewed. Case discussed with my JIGGER OPERATOR. Care plan developed with my supervision; agree with above. Doing fair. Strength still very diminished-needing help anytime she is up. Appetite varies. Feels very thirsty. Some nausea. Urgency for stool. Feels winded with activities. Lungs: decreased, no crackles or wheezes CV: tachy, regular AB: soft nt Plan: Adjustments of spironolactone and Lasix made. Need to monitor BP with restarting Propranolol. Encourage continued work with activities. Monitor lab. Hospital Course Summary Disclaimer: The visit summary below is not to be considered part of the above Progress Note. Hospital Course: 05/17/17 Admit, IP, to the hospitalist service, Dr. Lincoln attending. Stay expected to exceed 2 midnights d/t severe sepsis and chronic comorbidities. Labs reviewed, additional labs ordered - B12, folate, urine culture. IVF's, IV Zosyn initiated for rehydration and coverage of abdominal/urinary pathogens. Seizure precautions, alcohol w/drawal protocol ordered including lorazepam PRN. Start thiamine, folate, MVI. SCD's for DVT prophylaxis. Pt wishes to be a DNR. Care will need to be established with a PCP upon DC. hydroelectric production manager to assist with this. Case discussed with Dr. Lincoln. Further orders/POC per Dr. Lincoln. 05/18/17 Mentation variable today-sleeping frequently. Awake and alert this evening. WBC with decrease to 7.5. HGB decreased to 8.3 (likely dilutional from IVF). Bili 8.3 with AST 265 and ALT 174. Sodium 131. Decrease IVF to 50cc/hr. Advance diet to regular. Continue with Zosyn for antimicrobial coverage. UA showing mixed growth. Ab symptoms decreasing slightly. PT/OT consulted to help strength. 05/19/17 Weight quickly trending up; 91.5 --> 102 kg. HR also increased today, 100s- 120s. IV Lasix ordered per Dr. Lincoln. May need extra diuresis, though will need to monitor BP closely, since it has been low-normal. DC IVF. In addition, Spironolactone and Propranolol initiated d/t liver disease and risk for portal HTN and esophageal varices. Continue to monitor Na, slightly improved to 132. Renal function stable. Phos 2.9, mg 2.0. LFTs improving. Total bili 10.5 --> 8.2 --> 9.0. Continue to follow labs closely. Nutritional supplements ordered - albumin low at 2.3. Severe sepsis ruled out - the abnormal values noted on admission were more likely d/t liver dysfunction than an infectious source. WBC normal and she has been afebrile. UC + mixed adán. Will DC Zosyn. Continue PT/OT. IRU screen ordered. 05/20/17 Weight quickly trending up; 91.5 --> 102 kg. Patient has not been weighed yet today. May need extra diuresis, though will need to monitor BP closely, since it has been low-normal. Potassium 3.3 today - replaced. Continue to monitor Na., Has been averaging 131. LFTs continue to improve. Total bili 10.5 --> 8.2 --> 9.0-->6.4. Albumin continues to drop. 3.3-->2.3-->2.1. Ammonia increasing. 23-->28-->32. Vitamin B12 is slightly elevated. Patient takes 2500 g at home. Decreased to 1000 g Bright red blood with BM. Follow hgb. INR nl on admission. Not on anticoagulation. Check c. diff given diarrhea/bowel incontinence. 05/21/17 Flagyl was started yesterday for C. difficile. Dr. Mabry recommend switching to oral vancomycin as it has recently been named as first-line treatment for first episode of C. difficile. Start vancomycin 125 mg 4 times a day for at least 7 days. Propranolol, which was initiated this hospitalization for probable portal hypertension, was held due to hypotension. Sodium and potassium normalized today at 134 and 3.8 respectively. Total bili improving 10.5 --> 8.2 --> 9.0-->6.4-->5.8. CMP in a.m. She's had no further blood noted with her stools. Hemoglobin is stable. She was started on Lasix 20 mg by mouth daily for diuresis. Continues on spironolactone. She has been placed on sodium and fluid restrictions given her anasarca. Patient encouraged to work with therapy. Do not expect her to discharge before early next week. 05/22/17 She continues to have poor insight into her disease process and underlying issues. Acute vs. Acute on Chronic hepatic failure- ETOH as underlying presumed. Will assess Hep Panel as well. Need to assess CT abdomen/pelvis due to significant decline. Abnormal GB with possible polyps on sono. She is going to need to see GI at some point for further work up. Continue diuretics- will increase Lasix to IV, Increase Aldactone. Add KCL, but will need to monitor potassium closely. No lactulose as Ammonia has been normal, has diarrhea. C.Diff- acute vs. chronic due to prolonged diarrhea. PO Vancomycin per ID recommendations. Add cholestyramine for symptomatic support at this point. Needs barrier cream. Will assess echo due to hyperdynamic heart tones, severe fluid overload. Could have HF component to liver failure. Resume low dose propranolol for tachycardia- BP should support. Continue PPI BID due to risk of GI bleeding, but may worsen C.Diff. Monitor progress. Continue to encourage ambulation. She will need placement. Mood disorder likely/ETOH abuse- consider psych eval. +Exophthalmos- check TSH. Repeat labs in AM for stability. Hoping that diuresis will help her symptomatically.
[2017-05-22] MEDS ORDERED: CALMOSEPTINE OINTMENT 113gm TUBE TP PRN (14:05)
[2017-05-22] MEDS: SALINE FLUSH 10ml SYRINGE IVF PRN (14:19)
[2017-05-22] MEDS: FUROSEMIDE 20 MG/2 ML INJECTION IVP SCH ×2 (14:19→17:41)
[2017-05-22] MEDS: BENZOCAINE/MENTHOL SORE THROAT LOZENGE MM PRN ×3 (17:40→21:43)
[2017-05-23] MEDS: FUROSEMIDE 20 MG/2 ML INJECTION IVP SCH ×3 (00:17→16:46)
[2017-05-23] MEDS: BENZOCAINE/MENTHOL SORE THROAT LOZENGE MM PRN (04:13)
[2017-05-23] MEDS: VANCOMYCIN 250mg/5ml ORAL LIQ PO SCH ×4 (05:50→20:53)
[2017-05-23] MEDS: PANTOPRAZOLE 40 MG TABLET PO SCH (05:50)
[2017-05-23] MEDS: FOLIC ACID 1 MG TABLET PO SCH (09:01)
[2017-05-23] MEDS: SPIRONOLACTONE 25 MG TABLET PO SCH ×2 (09:01→20:53)
[2017-05-23] MEDS: CYANOCOBALAMIN (B-12) 500mcg TABLET PO SCH (09:01)
[2017-05-23] MEDS ORDERED: IOHEXOL 300mg/ml 100ml INJECTION ONE (09:33)
[2017-05-23] MEDS ORDERED: SALINE FLUSH 10ml SYRINGE ONE (09:50)
[2017-05-23] MEDS: MAGNESIUM SULFATE 1gm PREMIX 1 GM/100 ML BAG IV SCH ×2 (10:51→11:52)
[2017-05-23] MEDS ORDERED: FALL RISK - PHARMACY CONSULT MC ONE (14:27)
--- NOTE | 2017-05-23 15:49 | Progress Note ---
- Date 05/23/17 Subjective: F/U: Hepatitis-ETOHic liver disease Doing fair. Stools less loose and urgent. Not having ab pain or bloating. Appetite decreased-but able to take in more food today. Still feels very swollen. Breathing fair-winds with activities. Strength decreased. No f/c. Objective Vital signs: Temperature 96.4 F L 05/23/17 07:18 Pulse Rate 107 H 05/23/17 07:18 Respiratory Rate 16 05/23/17 07:18 Blood Pressure 107/63 05/23/17 07:18 Pulse Oximetry 98 05/23/17 07:18 Rhythm: Normal Sinus Rhythm, Sinus Tachycardia Height/Weight/BMI: Height 1.68 m Weight 96.5 kg Body Mass Index 32.5 - Constitutional Present: well nourished, well developed, obese - Routine HEENT Exam Head: Present: normocephalic, atraumatic Eye: Present: EOMI, PERRL ENT: Present: mucous membranes moist - Routine Respiratory Exam Present: decreased breath sounds. Absent: rales, respiratory distress, rhonchi , wheezes, crackles - Routine Cardiovascular Exam Present: no murmur, tachycardia - Routine Abdominal Exam Present: soft, normoactive bowel sounds, non tender - Routine Extremities Exam Present: no edema (+3BLE), pulses intact. Absent: cyanosis, clubbing - Routine Musculoskeletal Exam Musculoskeletal: Present: no clubbing or cyanosis - Routine Skin Exam Present: dry, warm - Routine Neurological Exam Present: alert, CN II-XII intact, moving all extremities, vision grossly intact , hearing grossly intact, normal speech. Absent: motor deficit, altered mental status - Routine Psychiatric Exam Present: normal affect Results - Labs CBC & Chem 7: 05/23/17 04:16 05/23/17 04:16 Microbiology Results: Microbiology 05/17/17 14:54 Urine, Voided (Cc/notcc) Urine Culture - Final Mixed Bacterial Adán Assessment and Plan (1) Acute hepatitis Current visit: Yes Status: Acute Assessment and Plan: Assessment Severe sepsis ruled out - the abnormal values noted on admission were more likely d/t liver dysfunction than an infectious source Severe sepsis suspected - SIRS: leukocytosis, tachycardia. Source: abdominal vs urine. Organ dysfx: elevated lactate Acute hepatitis - hyperbilirubinemia, transaminitis, ascites -likely related to alcohol abuse Anasarca/Fluid overload C. difficile diarrhea-(Dx: 05/20/2017) Suspect alcoholic cirrhosis Hepatic encephalopathy Bowel/bladder incontinence Hematochezia x 1 - not POA Diarrhea - POA UTI - mixed adán on culture Hyponatremia (POA) Hypokalemia-not POA Fatty infiltration of the liver /Abnormal GB Leukocytosis -resolved Macrocytic anemia - B12/Folate normal; most likely secondary to ETOH Tachycardia -resolved Alcohol abuse HTN Sleep apnea Depression Obesity with BMI 32.6 05/22/17 Continue with Lasix, spironolactone and propranolol to help motive fluid. Creatinine stable at 0.8. Potassium 3.8. Magnesium decreased to 1.5 - will give 1 gram IV magnesium. Oral vancomycin continues for C diff - stools less frequent and watery. Continue Protonix for GI protection, decreasing to once a day. Encourage activities to help strength. CM working on skilled care for post discharge. Will recheck BMP, Mg, and CBC in am. Case discussed with patient's sister. Time spent with patient care 25 minutes. DVT Prophylaxis: SCD's GI Prophylaxis: Protonix Resuscitation Status: Do Not Resuscitate - Time spent with patient Time with patient PN: 25 minutes - Physician Narrative Physician: Kvng Lincoln MD Narrative: Date: 05/23/17 Time: [id number] Hospital Course Summary Disclaimer: The visit summary below is not to be considered part of the above Progress Note. Hospital Course: 05/17/17 Admit, IP, to the hospitalist service, Dr. Lincoln attending. Stay expected to exceed 2 midnights d/t severe sepsis and chronic comorbidities. Labs reviewed, additional labs ordered - B12, folate, urine culture. IVF's, IV Zosyn initiated for rehydration and coverage of abdominal/urinary pathogens. Seizure precautions, alcohol w/drawal protocol ordered including lorazepam PRN. Start thiamine, folate, MVI. SCD's for DVT prophylaxis. Pt wishes to be a DNR. Care will need to be established with a PCP upon DC. mental health program manager to assist with this. Case discussed with Dr. Lincoln. Further orders/POC per Dr. Lincoln. 05/18/17 Mentation variable today-sleeping frequently. Awake and alert this evening. WBC with decrease to 7.5. HGB decreased to 8.3 (likely dilutional from IVF). Bili 8.3 with AST 265 and ALT 174. Sodium 131. Decrease IVF to 50cc/hr. Advance diet to regular. Continue with Zosyn for antimicrobial coverage. UA showing mixed growth. Ab symptoms decreasing slightly. PT/OT consulted to help strength. 05/19/17 Weight quickly trending up; 91.5 --> 102 kg. HR also increased today, 100s- 120s. IV Lasix ordered per Dr. Lincoln. May need extra diuresis, though will need to monitor BP closely, since it has been low-normal. DC IVF. In addition, Spironolactone and Propranolol initiated d/t liver disease and risk for portal HTN and esophageal varices. Continue to monitor Na, slightly improved to 132. Renal function stable. Phos 2.9, mg 2.0. LFTs improving. Total bili 10.5 --> 8.2 --> 9.0. Continue to follow labs closely. Nutritional supplements ordered - albumin low at 2.3. Severe sepsis ruled out - the abnormal values noted on admission were more likely d/t liver dysfunction than an infectious source. WBC normal and she has been afebrile. UC + mixed adán. Will DC Zosyn. Continue PT/OT. IRU screen ordered. 05/20/17 Weight quickly trending up; 91.5 --> 102 kg. Patient has not been weighed yet today. May need extra diuresis, though will need to monitor BP closely, since it has been low-normal. Potassium 3.3 today - replaced. Continue to monitor Na., Has been averaging 131. LFTs continue to improve. Total bili 10.5 --> 8.2 --> 9.0-->6.4. Albumin continues to drop. 3.3-->2.3-->2.1. Ammonia increasing. 23-->28-->32. Vitamin B12 is slightly elevated. Patient takes 2500 g at home. Decreased to 1000 g Bright red blood with BM. Follow hgb. INR nl on admission. Not on anticoagulation. Check c. diff given diarrhea/bowel incontinence. 05/21/17 Flagyl was started yesterday for C. difficile. Dr. Mabry recommend switching to oral vancomycin as it has recently been named as first-line treatment for first episode of C. difficile. Start vancomycin 125 mg 4 times a day for at least 7 days. Propranolol, which was initiated this hospitalization for probable portal hypertension, was held due to hypotension. Sodium and potassium normalized today at 134 and 3.8 respectively. Total bili improving 10.5 --> 8.2 --> 9.0-->6.4-->5.8. CMP in a.m. She's had no further blood noted with her stools. Hemoglobin is stable. She was started on Lasix 20 mg by mouth daily for diuresis. Continues on spironolactone. She has been placed on sodium and fluid restrictions given her anasarca. Patient encouraged to work with therapy. Do not expect her to discharge before early next week. 05/22/17 She continues to have poor insight into her disease process and underlying issues. Acute vs. Acute on Chronic hepatic failure- ETOH as underlying presumed. Will assess Hep Panel as well. Need to assess CT abdomen/pelvis due to significant decline. Abnormal GB with possible polyps on sono. She is going to need to see GI at some point for further work up. Continue diuretics- will increase Lasix to IV, Increase Aldactone. Add KCL, but will need to monitor potassium closely. No lactulose as Ammonia has been normal, has diarrhea. C.Diff- acute vs. chronic due to prolonged diarrhea. PO Vancomycin per ID recommendations. Add cholestyramine for symptomatic support at this point. Needs barrier cream. Will assess echo due to hyperdynamic heart tones, severe fluid overload. Could have HF component to liver failure. Resume low dose propranolol for tachycardia- BP should support. Continue PPI BID due to risk of GI bleeding, but may worsen C.Diff. Monitor progress. Continue to encourage ambulation. She will need placement. Mood disorder likely/ETOH abuse- consider psych eval. +Exophthalmos- check TSH. Repeat labs in AM for stability. Hoping that diuresis will help her symptomatically. 05/23/17 Continue with Lasix, spironolactone and propranolol to help motive fluid. Creatinine stable at 0.8. Potassium 3.8. Magnesium decreased to 1.5 - will give 1 gram IV magnesium. Oral vancomycin continues for C diff - stools less frequent and watery. Continue Protonix for GI protection, decreasing to once a day. Encourage activities to help strength. CM working on skilled care for post discharge.
[2017-05-24] MEDS: FUROSEMIDE 20 MG/2 ML INJECTION IVP SCH ×3 (01:01→17:31)
[2017-05-24] MEDS: SALINE FLUSH 10ml SYRINGE IVF PRN ×4 (01:05→20:39)
[2017-05-24] MEDS: VANCOMYCIN 250mg/5ml ORAL LIQ PO SCH ×4 (06:28→20:37)
[2017-05-24] MEDS: PANTOPRAZOLE 40 MG TABLET PO SCH (06:29)
[2017-05-24] MEDS: CYANOCOBALAMIN (B-12) 500mcg TABLET PO SCH (08:30)
[2017-05-24] MEDS: FOLIC ACID 1 MG TABLET PO SCH (08:30)
[2017-05-24] MEDS: SPIRONOLACTONE 25 MG TABLET PO SCH ×2 (08:30→20:36)
--- NOTE | 2017-05-24 09:20 | CT Scan Report ---
EXAM: CT abdomen pelvis wo/w con DATE: 05/23/2017 8:00 AM ENCOUNTER: Initial INDICATION: Liver failure COMPARISON: Bladder ultrasound 05/17/2017 TECHNIQUE: CT of the abdomen and pelvis was obtained before and after administration of IV contrast. The patient received 92 mL of Omnipaque 300 without complication. Coronal and sagittal reformatted images were performed. The current CT scan was performed using radiation dose-reduction techniques. FINDINGS: Lower Chest: Mild atelectasis within the visualized lung bases. The heart is normal in size without pericardial effusion. Abdomen: No intraperitoneal free air. Perihepatic and mild diffuse abdominal ascites. No lymphadenopathy. Liver: The liver is enlarged and demonstrates diffuse hypoattenuation consistent with fatty infiltration. No focal enhancing mass appreciated. Gallbladder and biliary: Hyperdense small stones/sludge layering within the gallbladder. No gallbladder wall thickening appreciated. No biliary ductal dilatation. Spleen: The spleen is enlarged but appears otherwise normal. Pancreas: The pancreas demonstrates homogeneous attenuation. Adrenal glands: The adrenal glands are normal in size and attenuation. Kidneys/ureters: The kidneys appear normal. The ureters are normal in course and caliber. GI tract: The stomach, small bowel, and colon appear grossly normal. The appendix is normal. Vascular structures: The aorta is normal in course and caliber with aortoiliac atherosclerotic calcifications noted. The mesenteric arterial and venous structures appear patent. Pelvis: Mild pelvic free fluid. No pelvic lymphadenopathy. Bladder: The bladder appears normal. Genital system: Calcified uterine fibroids. No adnexal masses seen. Skeletal structures and soft tissues: No acute osseous or soft tissue abnormality appreciated. Mild rotatory scoliosis and degenerative spondylosis of the visualized spine. IMPRESSION: 1. Hepatosplenomegaly and hepatic steatosis with mild diffuse abdominopelvic ascites. No focal enhancing hepatic mass. 2. Mild cholelithiasis/bladder sludge, with no CT evidence of acute cholecystitis. 3. Mild aortoiliac atherosclerotic disease. 4. Calcified uterine fibroids. 5. Mild rotatory scoliosis of the spine with associated multilevel degenerative spondylosis. .
--- NOTE | 2017-05-24 15:08 | Progress Note ---
- Date 05/24/17 Subjective: F/U: Hepatitis-ETOHic liver disease Has been working with therapy-reports it's difficult for her to get motivated to do therapy but once she starts it, it's not bad. Reports the therapist say she is making improvements. Stools loose today. Oral drive varies. Breaths comfortably at rest. Objective Vital signs: Temperature 96.8 F 05/24/17 12:01 Pulse Rate 108 H 05/24/17 12:01 Respiratory Rate 16 05/24/17 12:01 Blood Pressure 104/64 05/24/17 12:01 Pulse Oximetry 96 05/24/17 12:01 Rhythm: Normal Sinus Rhythm, Sinus Tachycardia Height/Weight/BMI: Height 1.68 m Weight 94.9 kg Body Mass Index 32.5 - Constitutional Present: obese, cooperative - Routine HEENT Exam Head: Present: normocephalic, atraumatic Eye: Present: EOMI, PERRL ENT: Present: mucous membranes moist - Routine Respiratory Exam Present: decreased breath sounds. Absent: respiratory distress - Routine Cardiovascular Exam Present: no murmur, tachycardia - Routine Abdominal Exam Present: soft, normoactive bowel sounds, non distended, non tender - Routine Extremities Exam Present: edema (+3BLE ), pulses intact. Absent: cyanosis, clubbing - Routine Musculoskeletal Exam Musculoskeletal: Present: no clubbing or cyanosis - Routine Skin Exam Present: dry, warm - Routine Neurological Exam Present: alert, CN II-XII intact, moving all extremities, vision grossly intact , hearing grossly intact. Absent: motor deficit, altered mental status - Routine Psychiatric Exam Present: normal affect. Absent: anxious, agitated Results - Labs CBC & Chem 7: 05/24/17 03:57 05/24/17 03:57 Microbiology Results: Microbiology 05/17/17 14:54 Urine, Voided (Cc/notcc) Urine Culture - Final Mixed Bacterial Adán Assessment and Plan (1) Acute hepatitis Current visit: Yes Status: Acute Assessment and Plan: Assessment Severe sepsis ruled out - the abnormal values noted on admission were more likely d/t liver dysfunction than an infectious source Severe sepsis suspected - SIRS: leukocytosis, tachycardia. Source: abdominal vs urine. Organ dysfx: elevated lactate Acute hepatitis - hyperbilirubinemia, transaminitis, ascites -likely related to alcohol abuse Anasarca/Fluid overload C. difficile diarrhea-(Dx: 05/20/2017) Suspect alcoholic cirrhosis Hepatic encephalopathy Bowel/bladder incontinence Hematochezia x 1 - not POA Diarrhea - POA UTI - mixed adán on culture Hyponatremia (POA) Hypokalemia-not POA Fatty infiltration of the liver /Abnormal GB Leukocytosis -resolved Macrocytic anemia - B12/Folate normal; most likely secondary to ETOH Tachycardia -resolved Alcohol abuse HTN Sleep apnea Depression Obesity with BMI 32.6 05/22/17 Continue with Lasix and spironolactone help motive fluid. Creatinine and Potassium stable, Mg increased to 1.8. Weight with decrease. Oral vancomycin continues for C diff. Encourage activities to help strength - stressed the importance of going to skilled post discharge to improve strength prior to her returning home. Will recheck CMP, phos, Mg, and CBC in am. Case discussed with CM. Time spent with patient care 25 minutes. DVT Prophylaxis: SCD's Resuscitation Status: Do Not Resuscitate - Time spent with patient Time with patient PN: 25 minutes - Physician Narrative Physician: Kvng Lincoln MD Narrative: Date: 05/24/17 Time: 1504 Hospital Course Summary Disclaimer: The visit summary below is not to be considered part of the above Progress Note. Hospital Course: 05/17/17 Admit, IP, to the hospitalist service, Dr. Lincoln attending. Stay expected to exceed 2 midnights d/t severe sepsis and chronic comorbidities. Labs reviewed, additional labs ordered - B12, folate, urine culture. IVF's, IV Zosyn initiated for rehydration and coverage of abdominal/urinary pathogens. Seizure precautions, alcohol w/drawal protocol ordered including lorazepam PRN. Start thiamine, folate, MVI. SCD's for DVT prophylaxis. Pt wishes to be a DNR. Care will need to be established with a PCP upon DC. insurance case manager to assist with this. Case discussed with Dr. Lincoln. Further orders/POC per Dr. Lincoln. 05/18/17 Mentation variable today-sleeping frequently. Awake and alert this evening. WBC with decrease to 7.5. HGB decreased to 8.3 (likely dilutional from IVF). Bili 8.3 with AST 265 and ALT 174. Sodium 131. Decrease IVF to 50cc/hr. Advance diet to regular. Continue with Zosyn for antimicrobial coverage. UA showing mixed growth. Ab symptoms decreasing slightly. PT/OT consulted to help strength. 05/19/17 Weight quickly trending up; 91.5 --> 102 kg. HR also increased today, 100s- 120s. IV Lasix ordered per Dr. Lincoln. May need extra diuresis, though will need to monitor BP closely, since it has been low-normal. DC IVF. In addition, Spironolactone and Propranolol initiated d/t liver disease and risk for portal HTN and esophageal varices. Continue to monitor Na, slightly improved to 132. Renal function stable. Phos 2.9, mg 2.0. LFTs improving. Total bili 10.5 --> 8.2 --> 9.0. Continue to follow labs closely. Nutritional supplements ordered - albumin low at 2.3. Severe sepsis ruled out - the abnormal values noted on admission were more likely d/t liver dysfunction than an infectious source. WBC normal and she has been afebrile. UC + mixed adán. Will DC Zosyn. Continue PT/OT. IRU screen ordered. 05/20/17 Weight quickly trending up; 91.5 --> 102 kg. Patient has not been weighed yet today. May need extra diuresis, though will need to monitor BP closely, since it has been low-normal. Potassium 3.3 today - replaced. Continue to monitor Na., Has been averaging 131. LFTs continue to improve. Total bili 10.5 --> 8.2 --> 9.0-->6.4. Albumin continues to drop. 3.3-->2.3-->2.1. Ammonia increasing. 23-->28-->32. Vitamin B12 is slightly elevated. Patient takes 2500 g at home. Decreased to 1000 g Bright red blood with BM. Follow hgb. INR nl on admission. Not on anticoagulation. Check c. diff given diarrhea/bowel incontinence. 05/21/17 Flagyl was started yesterday for C. difficile. Dr. Mabry recommend switching to oral vancomycin as it has recently been named as first-line treatment for first episode of C. difficile. Start vancomycin 125 mg 4 times a day for at least 7 days. Propranolol, which was initiated this hospitalization for probable portal hypertension, was held due to hypotension. Sodium and potassium normalized today at 134 and 3.8 respectively. Total bili improving 10.5 --> 8.2 --> 9.0-->6.4-->5.8. CMP in a.m. She's had no further blood noted with her stools. Hemoglobin is stable. She was started on Lasix 20 mg by mouth daily for diuresis. Continues on spironolactone. She has been placed on sodium and fluid restrictions given her anasarca. Patient encouraged to work with therapy. Do not expect her to discharge before early next week. 05/22/17 She continues to have poor insight into her disease process and underlying issues. Acute vs. Acute on Chronic hepatic failure- ETOH as underlying presumed. Will assess Hep Panel as well. Need to assess CT abdomen/pelvis due to significant decline. Abnormal GB with possible polyps on sono. She is going to need to see GI at some point for further work up. Continue diuretics- will increase Lasix to IV, Increase Aldactone. Add KCL, but will need to monitor potassium closely. No lactulose as Ammonia has been normal, has diarrhea. C.Diff- acute vs. chronic due to prolonged diarrhea. PO Vancomycin per ID recommendations. Add cholestyramine for symptomatic support at this point. Needs barrier cream. Will assess echo due to hyperdynamic heart tones, severe fluid overload. Could have HF component to liver failure. Continue PPI BID due to risk of GI bleeding, but may worsen C.Diff. Monitor progress. Continue to encourage ambulation. She will need placement. Mood disorder likely/ETOH abuse. +Exophthalmos- check TSH. Repeat labs in AM for stability. Hoping that diuresis will help her symptomatically. 05/23/17 Continue with Lasix and spironolactone to help motive fluid. Creatinine stable at 0.8. Potassium 3.8. Magnesium decreased to 1.5 - will give 1 gram IV magnesium. Oral vancomycin continues for C diff - stools less frequent and watery. Continue Protonix for GI protection, decreasing to once a day. Encourage activities to help strength. CM working on skilled care for post discharge. 05/24/17 Continue with Lasix and spironolactone help motive fluid. Creatinine and Potassium stable, Mg increased to 1.8. Oral vancomycin continues for C diff. Encourage activities to help strength - stressed the importance of going to skilled post discharge to improve strength prior to her returning home.
[2017-05-24 23:45] VITALS: RESP 18
[2017-05-25] MEDS: FUROSEMIDE 20 MG/2 ML INJECTION IVP SCH ×2 (01:05→08:51)
[2017-05-25] MEDS: VANCOMYCIN 250mg/5ml ORAL LIQ PO SCH ×2 (05:50→10:53)
[2017-05-25] MEDS: PANTOPRAZOLE 40 MG TABLET PO SCH (05:50)
[2017-05-25 07:35] VITALS: BP 101/64; PULSE 103; TEMP 96.8; O2SAT 96
[2017-05-25] MEDS: CYANOCOBALAMIN (B-12) 500mcg TABLET PO SCH (08:50)
[2017-05-25] MEDS: SPIRONOLACTONE 25 MG TABLET PO SCH (08:50)
[2017-05-25] MEDS: FOLIC ACID 1 MG TABLET PO SCH (08:50)
--- NOTE | 2017-05-25 14:11 | Progress Note ---
- Date 05/25/17 Subjective: F/U: Hepatitis-ETOHic liver disease Doing okay. Stool loose-able to get to commode in time, but not having the formed stool she started to a few days ago. Oral drive variable. Breathing well. Strength improving slowly. Objective Vital signs: Temperature 96.8 F 05/25/17 07:34 Pulse Rate 103 H 05/25/17 07:34 Respiratory Rate 18 05/25/17 07:34 Blood Pressure 101/64 05/25/17 07:34 Pulse Oximetry 96 05/25/17 07:34 Rhythm: Normal Sinus Rhythm, Sinus Tachycardia Height/Weight/BMI: Height 1.68 m Weight 94.8 kg Body Mass Index 32.5 - Constitutional Present: obese, cooperative - Routine HEENT Exam Head: Present: normocephalic, atraumatic Eye: Present: EOMI, PERRL ENT: Present: mucous membranes moist - Routine Respiratory Exam Present: decreased breath sounds. Absent: respiratory distress, wheezes, crackles - Routine Cardiovascular Exam Present: tachycardia. Absent: no murmur - Routine Abdominal Exam Present: soft, normoactive bowel sounds, non distended, non tender - Routine Extremities Exam Present: edema (+3 BLE), pulses intact. Absent: cyanosis, clubbing - Routine Skin Exam Present: intact, dry, warm - Routine Neurological Exam Present: alert, CN II-XII intact, moving all extremities, vision grossly intact , hearing grossly intact, normal speech. Absent: motor deficit, altered mental status - Routine Psychiatric Exam Present: normal affect, cooperative. Absent: anxious, agitated Results - Labs CBC & Chem 7: 05/25/17 04:31 05/25/17 04:31 Microbiology Results: Microbiology 05/17/17 14:54 Urine, Voided (Cc/notcc) Urine Culture - Final Mixed Bacterial Adán Assessment and Plan (1) Acute hepatitis Current visit: Yes Status: Acute Assessment and Plan: Assessment Severe sepsis ruled out - the abnormal values noted on admission were more likely d/t liver dysfunction than an infectious source Severe sepsis suspected - SIRS: leukocytosis, tachycardia. Source: abdominal vs urine. Organ dysfx: elevated lactate Acute hepatitis - hyperbilirubinemia, transaminitis, ascites - Alcoholic Liver disease Anasarca/Fluid overload C. difficile diarrhea-(Dx: 05/20/2017) Suspect alcoholic cirrhosis Hepatic encephalopathy Bowel/bladder incontinence Hematochezia x 1 - not POA Diarrhea - POA UTI - mixed adán on culture Hyponatremia (POA) Hypokalemia-not POA Fatty infiltration of the liver /Abnormal GB Leukocytosis -resolved Macrocytic anemia - B12/Folate normal; most likely secondary to ETOH Tachycardia -resolved Alcohol abuse HTN Sleep apnea Depression Obesity with BMI 32.6 05/22/17 Arrangements made for skilled care at [facility] to help improve strength prior to patient returning home. Medically stable for discharge. Will continue with oral Vancomycin for another 20 doses to help resolve C diff. Questran can be used as needed for loose stool. Lasix 40mg am and 1700 with Spironolactone 25mg am and 1700 to help decrease edema. Continue Thiamine and folic acid. Stressed the importance of working with therapy to improve functional status. Does need to establish PCP - pt would like female physician. Did recommend Dr Jones as she is an excellent care provider. Will need to have GI evaluation in outpatient setting due to her liver disease. See orders for details. Case discussed with CM. Time spent with patient care and discharge greater than 30 minutes. DVT Prophylaxis: SCD's Resuscitation Status: Do Not Resuscitate - Physician Narrative Physician: Kvng Lincoln MD Narrative: Date: 05/25/17 Time: 7808 Hospital Course Summary Disclaimer: The visit summary below is not to be considered part of the above Progress Note. Hospital Course: 05/17/17 Admit, IP, to the hospitalist service, Dr. Lincoln attending. Stay expected to exceed 2 midnights d/t severe sepsis and chronic comorbidities. Labs reviewed, additional labs ordered - B12, folate, urine culture. IVF's, IV Zosyn initiated for rehydration and coverage of abdominal/urinary pathogens. Seizure precautions, alcohol w/drawal protocol ordered including lorazepam PRN. Start thiamine, folate, MVI. SCD's for DVT prophylaxis. Pt wishes to be a DNR. Care will need to be established with a PCP upon DC. technology services manager to assist with this. Case discussed with Dr. Lincoln. Further orders/POC per Dr. Lincoln. 05/18/17 Mentation variable today-sleeping frequently. Awake and alert this evening. WBC with decrease to 7.5. HGB decreased to 8.3 (likely dilutional from IVF). Bili 8.3 with AST 265 and ALT 174. Sodium 131. Decrease IVF to 50cc/hr. Advance diet to regular. Continue with Zosyn for antimicrobial coverage. UA showing mixed growth. Ab symptoms decreasing slightly. PT/OT consulted to help strength. 05/19/17 Weight quickly trending up; 91.5 --> 102 kg. HR also increased today, 100s- 120s. IV Lasix ordered per Dr. Lincoln. May need extra diuresis, though will need to monitor BP closely, since it has been low-normal. DC IVF. In addition, Spironolactone and Propranolol initiated d/t liver disease and risk for portal HTN and esophageal varices. Continue to monitor Na, slightly improved to 132. Renal function stable. Phos 2.9, mg 2.0. LFTs improving. Total bili 10.5 --> 8.2 --> 9.0. Continue to follow labs closely. Nutritional supplements ordered - albumin low at 2.3. Severe sepsis ruled out - the abnormal values noted on admission were more likely d/t liver dysfunction than an infectious source. WBC normal and she has been afebrile. UC + mixed adán. Will DC Zosyn. Continue PT/OT. IRU screen ordered. 05/20/17 Weight quickly trending up; 91.5 --> 102 kg. Patient has not been weighed yet today. May need extra diuresis, though will need to monitor BP closely, since it has been low-normal. Potassium 3.3 today - replaced. Continue to monitor Na., Has been averaging 131. LFTs continue to improve. Total bili 10.5 --> 8.2 --> 9.0-->6.4. Albumin continues to drop. 3.3-->2.3-->2.1. Ammonia increasing. 23-->28-->32. Vitamin B12 is slightly elevated. Patient takes 2500 g at home. Decreased to 1000 g Bright red blood with BM. Follow hgb. INR nl on admission. Not on anticoagulation. Check c. diff given diarrhea/bowel incontinence. 05/21/17 Flagyl was started yesterday for C. difficile. Dr. Mabry recommend switching to oral vancomycin as it has recently been named as first-line treatment for first episode of C. difficile. Start vancomycin 125 mg 4 times a day for at least 7 days. Propranolol, which was initiated this hospitalization for probable portal hypertension, was held due to hypotension. Sodium and potassium normalized today at 134 and 3.8 respectively. Total bili improving 10.5 --> 8.2 --> 9.0-->6.4-->5.8. CMP in a.m. She's had no further blood noted with her stools. Hemoglobin is stable. She was started on Lasix 20 mg by mouth daily for diuresis. Continues on spironolactone. She has been placed on sodium and fluid restrictions given her anasarca. Patient encouraged to work with therapy. Do not expect her to discharge before early next week. 05/22/17 She continues to have poor insight into her disease process and underlying issues. Acute vs. Acute on Chronic hepatic failure- ETOH as underlying presumed. Will assess Hep Panel as well. Need to assess CT abdomen/pelvis due to significant decline. Abnormal GB with possible polyps on sono. She is going to need to see GI at some point for further work up. Continue diuretics- will increase Lasix to IV, Increase Aldactone. Add KCL, but will need to monitor potassium closely. No lactulose as Ammonia has been normal, has diarrhea. C.Diff- acute vs. chronic due to prolonged diarrhea. PO Vancomycin per ID recommendations. Add cholestyramine for symptomatic support at this point. Needs barrier cream. Will assess echo due to hyperdynamic heart tones, severe fluid overload. Could have HF component to liver failure. Continue PPI BID due to risk of GI bleeding, but may worsen C.Diff. Monitor progress. Continue to encourage ambulation. She will need placement. Mood disorder likely/ETOH abuse. +Exophthalmos- check TSH. Repeat labs in AM for stability. Hoping that diuresis will help her symptomatically. 05/23/17 Continue with Lasix and spironolactone to help motive fluid. Creatinine stable at 0.8. Potassium 3.8. Magnesium decreased to 1.5 - will give 1 gram IV magnesium. Oral vancomycin continues for C diff - stools less frequent and watery. Continue Protonix for GI protection, decreasing to once a day. Encourage activities to help strength. CM working on skilled care for post discharge. 05/24/17 Continue with Lasix and spironolactone help motive fluid. Creatinine and Potassium stable, Mg increased to 1.8. Oral vancomycin continues for C diff. Encourage activities to help strength - stressed the importance of going to skilled post discharge to improve strength prior to her returning home. 05/25/17 Arrangements made for skilled care at [facility] to help improve strength prior to patient returning home. Medically stable for discharge. Will continue with oral Vancomycin for another 20 doses to help resolve C diff. Questran can be used as needed for loose stool. Lasix 40mg am and 1700 with Spironolactone 25mg am and 1700 to help decrease edema. Continue Thiamine and folic acid. Stressed the importance of working with therapy to improve functional status. Does need to establish PCP - pt would like female physician. Did recommend Dr Jones as she is an excellent care provider. Will need to have GI evaluation in outpatient setting due to her liver disease. See orders for details.
--- NOTE | 2017-05-25 14:33 | Extended Care Facility Orders ---
Admission Orders Admit to:: [facility] Allergies/Adverse Reactions: Allergies aspirin [From Naomy Aspirin] Allergy (Intermediate, Verified 05/17/17 15:52) Rash rash as a kid Admitting Diagnosis: Alcoholic liver disease with functional decline Admitting Physician: Kvng Lincoln MD Attending Physician: Dr Morelos Code Status: Do Not Resuscitate Anticiapted Length of Stay: 30 days or less Rehab Potential: fair Rehab Prognosis: fair Diet: No added salt (low salt diet). May have up to 2000cc fluid a day. May use Facility Protocol or Standing Orders: Yes May have flu vaccine: Yes Evaluations/Treatment: PT, OT, as needed [facility] Certification: I certify that SNF services are required to be given on an Inpatient basis because of the patients need for nursing home care on a continuing basis for the condition(s) for which he/she received inpatient hospital services prior to his/her transfer to the SNF. SNF inpatient care is necessary for the following reasons Indication for [facility]: Med Admininistration, Teach Medication Management, Other (Skilled PT/OT to help improve functional status. ) - Additional Information In Event of Arrest: Do Not Start CPR Resident is Aware of Diagnosis: Yes Referrals: Valentina Jones MD [Physician] - 1 Month (Patient does not have PCP - see if arrangements could be made to establish with Dr Jones for when she discharges from [facility]. ) Mnoica Morelos MD [Physician] - 1 Week (Hospital follow up for ETOHIC liver diease with functional decline. ) Additional Orders: CMP in 1 week secondary to mediction use. CBC in 1 week secondary to anemia. Patientl does not have primary care provider. Will need to establish with primary care phyiscian by time she is discharged from [facility].
--- NOTE | 2017-05-25 14:36 | Discharge Summary ---
Discharge Information Date of admission: 05/17/17 14:42 Anticipated date of discharge: 05/25/17 Attending Physician: Kvng Lincoln MD Consults: PT/OT - Discharge Diagnosis (1) Acute hepatitis Status: Acute Admitting diagnosis Severe sepsis Discharge diagnosis Alcoholic liver disease with functional decline Associated conditions and complications Severe sepsis ruled out - the abnormal values noted on admission were more likely d/t liver dysfunction than an infectious source Severe sepsis suspected - SIRS: leukocytosis, tachycardia. Source: abdominal vs urine. Organ dysfx: elevated lactate Acute hepatitis - hyperbilirubinemia, transaminitis, ascites -likely related to alcohol abuse Anasarca/Fluid overload C. difficile diarrhea-(Dx: 05/20/2017) Suspect alcoholic cirrhosis Hepatic encephalopathy Bowel/bladder incontinence Hematochezia x 1 - not POA Diarrhea - POA UTI - mixed adán on culture Hyponatremia (POA) Hypokalemia - not POA Fatty infiltration of the liver /Abnormal GB Leukocytosis -resolved Macrocytic anemia - B12/Folate normal; most likely secondary to ETOH Tachycardia -resolved Alcohol abuse HTN Sleep apnea Depression Functional decline Gait instability Generalized debility Obesity with BMI 32.6 - Laboratory Labs: Admit Lab 05/17/17 12:12 WBC 13.1 H Hgb 10.8 L Hct 33.3 L MCV 124.7 H Plt Count 208 Neut % (Auto) 81.8 H Lymph % (Auto) 9.4 L [place] % (Auto) 8.1 Eos % (Auto) 0.2 Baso % (Auto) 0.1 Admit Lab 05/17/17 12:12 INR 1.32 H Admit Lab 05/17/17 05/17/17 12:12 12:37 Sodium 131 L Potassium 4.4 Chloride 93 L Carbon Dioxide 21 L Anion Gap 17 H BUN 10.0 Creatinine 0.6 L GFR Calculation 105 BUN/Creatinine Ratio 17 Glucose 123 H Calculated Osmolality 253 L Calcium 9.3 Total Bilirubin 10.50 H AST 265 H ALT 41 Alkaline Phosphatase 297 H Ammonia 23 Troponin I < 0.012 Total Protein 8.0 Albumin 3.3 L Globulin 4.7 H Albumin/Globulin Ratio 0.7 L Lipase 73 Folate and B12 05/17/17 15:55 Vitamin B12 932 H Folate 10.4 TSH 05/22/17 05:10 TSH 4.57 Hepatitis Serology Tests 05/22/17 13:52 Hepatitis A IgM Ab Negative Hep Bs Antigen Negative Hep B Core IgM Ab Negative Hepatitis C Antibody Negative Laboratory Tests 05/20/17 13:58 Stl C. diff Tox B Gene Positive A* Discharge Liver Tests 05/25/17 04:31 Total Bilirubin 6.00 H AST 95 H ALT 32 Alkaline Phosphatase 155 H Total Protein 6.7 Albumin 2.6 L Globulin 4.1 H Albumin/Globulin Ratio 0.6 L Discharg Mg and Phos Tests 05/25/17 04:31 Phosphorus 4.1 Magnesium 1.7 05/25/17 04:31 05/25/17 04:31 - Microbiology Microbiology 05/17/17 14:54 Urine, Voided (Cc/notcc) Urine Culture - Final Mixed Bacterial Adán - Radiology Radiology: Date of Exam: 05/17/17 Type of Exam: XR chest 1V Findings: Patient shows basilar atelectatic changes which are more prominent on the previous study. Patient had shown some mild elevation of the right diaphragm on the old study but this has increased slightly and there is more linearity in both lung bases now present. The heart, mediastinum and central vascularity are similar to the previous study. No acute new bony findings. Impression: Increasing bibasilar atelectatic changes since the previous examination. Heart size remains unremarkable. Date of Exam: 05/17/17 Type of Exam: US gall bladder Findings: Liver: Diffuse fatty infiltration. There seems to be some fluid possibly stranding the liver as well as in the right lung base. Gallbladder shows multiple stones with wall thickness at 3 mm which is the upper range of normal. Common duct was within normal limits. Right kidney is unremarkable. Pancreas difficult to visualize due to midline gas. Aorta and vena cava are also somewhat difficult to visualize due to midline gas but showed no obvious abnormality. Impression: 1. Diffuse fatty infiltration of the liver. 2. Small amount of ascites and some potential right-sided pleural fluid. 3. Stones in the gallbladder with mild wall thickness. There also may be some polyps is are seem to be some potential areas appearing to the wall which did not show classic shadowing. Date of Exam: 05/23/17 Type of Exam: CT abdomen pelvis wo/w con FINDINGS: Lower Chest: Mild atelectasis within the visualized lung bases. The heart is normal in size without pericardial effusion. Abdomen: No intraperitoneal free air. Perihepatic and mild diffuse abdominal ascites. No lymphadenopathy. Liver: The liver is enlarged and demonstrates diffuse hypoattenuation consistent with fatty infiltration. No focal enhancing mass appreciated. Gallbladder and biliary: Hyperdense small stones/sludge layering within the gallbladder. No gallbladder wall thickening appreciated. No biliary ductal dilatation. Spleen: The spleen is enlarged but appears otherwise normal. Pancreas: The pancreas demonstrates homogeneous attenuation. Adrenal glands: The adrenal glands are normal in size and attenuation. Kidneys/ureters: The kidneys appear normal. The ureters are normal in course and caliber. GI tract: The stomach, small bowel, and colon appear grossly normal. The appendix is normal. Vascular structures: The aorta is normal in course and caliber with aortoiliac atherosclerotic calcifications noted. The mesenteric arterial and venous structures appear patent. Pelvis: Mild pelvic free fluid. No pelvic lymphadenopathy. Bladder: The bladder appears normal. Genital system: Calcified uterine fibroids. No adnexal masses seen. Skeletal structures and soft tissues: No acute osseous or soft tissue abnormality appreciated. Mild rotatory scoliosis and degenerative spondylosis of the visualized spine. IMPRESSION: 1. Hepatosplenomegaly and hepatic steatosis with mild diffuse abdominopelvic ascites. No focal enhancing hepatic mass. 2. Mild cholelithiasis/bladder sludge, with no CT evidence of acute cholecystitis. 3. Mild aortoiliac atherosclerotic disease. 4. Calcified uterine fibroids. 5. Mild rotatory scoliosis of the spine with associated multilevel degenerative spondylosis. History of Present Illness HPI: Patient is a 51-year-old female who is brought in by EMS to the emergency room due to severe weakness. She tells the story that she was unable to get up off of her very low toilet seat so she lowered herself to the floor. She reports her symptoms started yesterday. She describes a sudden onset of weakness and cough. She says she "drank too much cough syrup." She complains that her abdomen is swollen and feels tight. She doesn't really complain of pain. She's had diarrhea for weeks. She has dark urine but no dysuria, she does have some frequency and incontinence which is not normal for her. She tells me she has no nausea or vomiting yet she told the nurse that she vomits daily. She tells me she drinks 4 shots of whiskey with water or Crystal light in the morning and then drinks water the rest of the day. She told the nurse that she was drinking much more than that but decreased the amount she drank in August because she was "afraid." For complete details of the H&P refer to that document. Objective Vital signs: Temperature 96.8 F 05/25/17 07:34 Pulse Rate 103 H 05/25/17 07:34 Respiratory Rate 18 05/25/17 07:34 Blood Pressure 101/64 05/25/17 07:34 Pulse Oximetry 96 05/25/17 07:34 Rhythm: Normal Sinus Rhythm, Sinus Tachycardia Height/Weight/BMI: Height 1.68 m Weight 94.8 kg Body Mass Index 32.5 Hospital Course This is a general summary of the patient's hospital course. For more details refer to the complete medical record. Hospital course: 05/17/17 Admit, IP, to the hospitalist service, Dr. Lincoln attending. Stay expected to exceed 2 midnights d/t severe sepsis and chronic comorbidities. Labs reviewed, additional labs ordered - B12, folate, urine culture. IVF's, IV Zosyn initiated for rehydration and coverage of abdominal/urinary pathogens. Seizure precautions, alcohol w/drawal protocol ordered including lorazepam PRN. Start thiamine, folate, MVI. SCD's for DVT prophylaxis. Pt wishes to be a DNR. Care will need to be established with a PCP upon DC. manager production to assist with this. Case discussed with Dr. Lincoln. Further orders/POC per Dr. Lincoln. 05/18/17 Mentation variable today-sleeping frequently. Awake and alert this evening. WBC with decrease to 7.5. HGB decreased to 8.3 (likely dilutional from IVF). Bili 8.3 with AST 265 and ALT 174. Sodium 131. Decrease IVF to 50cc/hr. Advance diet to regular. Continue with Zosyn for antimicrobial coverage. UA showing mixed growth. Ab symptoms decreasing slightly. PT/OT consulted to help strength. 05/19/17 Weight quickly trending up; 91.5 --> 102 kg. HR also increased today, 100s- 120s. IV Lasix ordered per Dr. Lincoln. May need extra diuresis, though will need to monitor BP closely, since it has been low-normal. DC IVF. In addition, Spironolactone and Propranolol initiated d/t liver disease and risk for portal HTN and esophageal varices. Continue to monitor Na, slightly improved to 132. Renal function stable. Phos 2.9, mg 2.0. LFTs improving. Total bili 10.5 --> 8.2 --> 9.0. Continue to follow labs closely. Nutritional supplements ordered - albumin low at 2.3. Severe sepsis ruled out - the abnormal values noted on admission were more likely d/t liver dysfunction than an infectious source. WBC normal and she has been afebrile. UC + mixed adán. Will DC Zosyn. Continue PT/OT. IRU screen ordered. 05/20/17 Weight quickly trending up; 91.5 --> 102 kg. Patient has not been weighed yet today. May need extra diuresis, though will need to monitor BP closely, since it has been low-normal. Potassium 3.3 today - replaced. Continue to monitor Na., Has been averaging 131. LFTs continue to improve. Total bili 10.5 --> 8.2 --> 9.0-->6.4. Albumin continues to drop. 3.3-->2.3-->2.1. Ammonia increasing. 23-->28-->32. Vitamin B12 is slightly elevated. Patient takes 2500 g at home. Decreased to 1000 g Bright red blood with BM. Follow hgb. INR nl on admission. Not on anticoagulation. Check c. diff given diarrhea/bowel incontinence. 05/21/17 Flagyl was started yesterday for C. difficile. Dr. Mabry recommend switching to oral vancomycin as it has recently been named as first-line treatment for first episode of C. difficile. Start vancomycin 125 mg 4 times a day for at least 7 days. Propranolol, which was initiated this hospitalization for probable portal hypertension, was held due to hypotension. Sodium and potassium normalized today at 134 and 3.8 respectively. Total bili improving 10.5 --> 8.2 --> 9.0-->6.4-->5.8. CMP in a.m. She's had no further blood noted with her stools. Hemoglobin is stable. She was started on Lasix 20 mg by mouth daily for diuresis. Continues on spironolactone. She has been placed on sodium and fluid restrictions given her anasarca. Patient encouraged to work with therapy. Do not expect her to discharge before early next week. 05/22/17 She continues to have poor insight into her disease process and underlying issues. Acute vs. Acute on Chronic hepatic failure- ETOH as underlying presumed. Will assess Hep Panel as well. Need to assess CT abdomen/pelvis due to significant decline. Abnormal GB with possible polyps on sono. She is going to need to see GI at some point for further work up. Continue diuretics- will increase Lasix to IV, Increase Aldactone. Add KCL, but will need to monitor potassium closely. No lactulose as Ammonia has been normal, has diarrhea. C.Diff- acute vs. chronic due to prolonged diarrhea. PO Vancomycin per ID recommendations. Add cholestyramine for symptomatic support at this point. Needs barrier cream. Will assess echo due to hyperdynamic heart tones, severe fluid overload. Could have HF component to liver failure. Continue PPI BID due to risk of GI bleeding, but may worsen C.Diff. Monitor progress. Continue to encourage ambulation. She will need placement. Mood disorder likely/ETOH abuse. +Exophthalmos- check TSH. Repeat labs in AM for stability. Hoping that diuresis will help her symptomatically. 05/23/17 Continue with Lasix and spironolactone to help motive fluid. Creatinine stable at 0.8. Potassium 3.8. Magnesium decreased to 1.5 - will give 1 gram IV magnesium. Oral vancomycin continues for C diff - stools less frequent and watery. Continue Protonix for GI protection, decreasing to once a day. Encourage activities to help strength. CM working on skilled care for post discharge. 05/24/17 Continue with Lasix and spironolactone help motive fluid. Creatinine and Potassium stable, Mg increased to 1.8. Oral vancomycin continues for C diff. Encourage activities to help strength - stressed the importance of going to skilled post discharge to improve strength prior to her returning home. 05/25/17 Arrangements made for skilled care at [facility] to help improve strength prior to patient returning home. Medically stable for discharge. Will continue with oral Vancomycin for another 20 doses to help resolve C diff. Questran can be used as needed for loose stool. Lasix 40mg am and 1700 with Spironolactone 25mg am and 1700 to help decrease edema. Continue Thiamine and folic acid. Stressed the importance of working with therapy to improve functional status. Does need to establish PCP - pt would like female physician. Did recommend Dr Jones as she is an excellent care provider. Will need to have GI evaluation in outpatient setting due to her liver disease. See orders for details. Time spent with patient: discharge greater than 30 minutes Resuscitation Status: Do Not Resuscitate Discharge Plan - Discharge Disposition Discharge Date: 05/25/17 Disposition: 03 To SNU Not [facility] (SNF) *Condition: Stable Reason For Visit (Visit label in EMR): Acute hepatitis - Discharge Medications *Discharge Medications: New Cholestyramine/Aspartame [Cholestyramine Light Packet] 4 g PO Q6H PRN powd.pack PRN Reason: Diarrhea Folic Acid [Folate] 1 mg PO DAILY tab Furosemide [Lasix] 40 mg PO 0917 #60 tab Lactulose Oral Liq [Lactulose] 20 gm PO DAILY PRN solution PRN Reason: Constipation Pantoprazole Tab [Protonix Tab] 40 mg PO ACB tab Spironolactone [Aldactone] 25 mg PO BID tab Vancomycin Oral Liq 125 mg PO QID/E #20 po.syringe Benzocaine/Menthol Lozenge [CEPACOL SORE THROAT Lozenge] 1 lozenge MM PRN PRN lozenge PRN Reason: Sore Throat Potassium Chloride [K-DUR 20 mEq Tablet] 20 meq PO BIDWM tab Continue Thiamine HCl 100 mg PO DAILY #30 tab Multivit-Min/Folic Acid/Biotin [Women Multivit W-Biotin Gummy] 1 each PO DAILY Cyanocobalamin (Vitamin B-12) [Vitamin B12] 2,500 mcg PO DAILY #30 tab guaiFENesin [Cough Syrup] 100 mg PO Q4H PRN PRN Reason: Cough Discontinued Vitamin D3 1 tab PO DAILY Vitamin B-1 1 tab PO DAILY - Discharge Packet/Instructions *Diet: Low sodium, no added salt. *Activity: Increase as able. *Pain Management/Treatment: Tylenol okay for pain *Wound Care: n/a *Expected Signs/Symptoms: Improvement of strenght and functional abilities *Notify Physician if: Temp > 100.4. Significant dizziness with positional changes. *During Business Hours Contact: Nursing staff at [facility] *After Business Hours Contact: Nursing staff at [facility] *Pending Lab/Results: No Pending Lab - Referrals/Follow Up *Referrals/Follow Up: Valentina Jones MD [Physician] - 1 Month (Patient does not have PCP - see if arrangements could be made to establish with Dr Jones for when she discharges from [facility]. ) Monica Morelos MD [Physician] - 1 Week (Hospital follow up for ETOHIC liver diease with functional decline. ) - Patient Handouts Patient Handouts: [facility] Living with C.Diff - Dismissal Complete Discharge Instructions are:: Complete Physician Narrative - Narrative Physician: Kvng Lincoln MD Attestation Narrative: Date: 05/25/17 Time: 0271 I have independently interviewed and examined patient prior to discharge. See my progress note from today for details. Medically stable for discharge to skilled care.
--- NOTE | 2017-05-25 15:20 | Excercise Stress Test ---
DATE OF SERVICE 05/24/2017 INDICATION Shortness of breath, edema. CHF? TECHNICAL QUALITY Technically good 2-D, M-mode, Doppler echocardiographic images were submitted for interpretation. FINDINGS 1. CARDIAC CHAMBERS. Left atrium is borderline to mildly enlarged, urinalysis technician measured 4.6 cm. All other cardiac chambers are normal in size. RV size and contractility appeared normal. Aortic root diameter is normal. 2. LEFT VENTRICLE. Concentric LVH is present. Posterior wall measured 15 mm. Septal wall measured 14 mm. Wall motion analysis is normal. Systolic function is normal. EF is estimated at 70% and it appears hyperdynamic. Diastolic function parameters show equalization of E and A waves. E/E' ratio is 6.4. MVDT is 285. 3. VALVES. Aortic and mitral valve exhibit normal structure and motion. Tricuspid valve structure and motion appear normal. Normal valve excursion. Minimal sclerotic changes of the trileaflet aortic valve are noted. 4. DOPPLER. Shows trace mitral and trace tricuspid regurgitation, increased flow velocity at the LVOT level 1.6 m/sec with early peaking and normal- appearing envelope morphology. At the aortic valve is also 1.6 m/sec. I don't appreciate any PHONG. These increased flow velocities are likely due to hyperdynamic left ventricle. EF is estimated over 70%. Trace pulmonic insufficiency. 5. No significant valvular dysfunction. 6. Minimally elevated systolic PA pressure - estimated at 37 mmHg. MTDD
== END 2017-05-25 15:48 | DRG 442 ==
LOC: ED 11:49 → MED 14:42 → SUATTDRO 14:42 → SRG 14:43
PROVIDERS: ADMIT Hospitalist; ATTEND Hospitalist

== ENCOUNTER 2017-06-25 10:37 | Inpatient (IN) ==
--- NOTE | 2017-06-25 11:23 | Emergency Department Report ---
Psych HPI - General Chief Complaint: Psychiatric Symptoms Stated Complaint: sucidal ideation,depression Time Seen by Provider: 06/25/17 11:23 - Related Data Home Medications Medication Instructions Recorded Confirmed guaiFENesin [Cough Syrup] 100 mg PO Q4H PRN 05/17/17 06/25/17 Furosemide [Lasix 40 mg Tab] 40 mg PO BID 06/25/17 06/25/17 Hydrocortisone 2.5% Cream 1 applicatio TOP PRN 06/25/17 06/25/17 [Anusol-Hc 2.5% Cream] Loperamide [Imodium] 2 mg PO Q4H PRN 06/25/17 06/25/17 Nitrofurantoin Macrocrystal 100 mg PO BID 06/25/17 06/25/17 [Nitrofurantoin] Sertraline [Zoloft] 50 mg PO DAILY 06/25/17 06/25/17 Previous Rx's Medication Instructions Recorded Cyanocobalamin (Vitamin B-12) 2,500 mcg PO DAILY #30 tab 10/18/16 [Vitamin B12] Thiamine HCl 100 mg PO DAILY #30 tab 10/18/16 Benzocaine/Menthol Lozenge 1 lozenge MM PRN PRN lozenge 05/25/17 [CEPACOL SORE THROAT Lozenge] Folic Acid [Folate] 1 mg PO DAILY tab 05/25/17 Lactulose Oral Liq [Lactulose] 20 gm PO DAILY PRN solution 05/25/17 Pantoprazole Tab [Protonix Tab] 40 mg PO ACB tab 05/25/17 Potassium Chloride [K-DUR 20 mEq 20 meq PO BIDWM tab 05/25/17 Tablet] Spironolactone [Aldactone] 25 mg PO BID tab 05/25/17 Allergies Allergy/AdvReac Type Severity Reaction Status Date / Time aspirin Allergy Unknown Rash Verified 06/25/17 11:07 [facility] Patient Stated Medical History Other HEENT JAUNDICED EYES Hypertension Yes: DOES NOT TAKE MEDS Sleep Apnea Yes Hx Urinary Tract Infection Yes Anemia Yes Osteoarthritis Yes: knees Blood Transfusions Yes Depression Yes Post Menopausal Yes: 2013 Surgical History: Denies PSH Family History Updates: Updated - Social History Smoking status: Never smoker second hand exposure: No Substance use type: does not use Alcohol intake: current Alcohol intake frequency: 3 or more drinks per day (4 shots of whiskey daily) Housing: apartment Household members: none Current occupational status: disabled (patient is unsure why she is disabled.) Does patient use chewing tobacco?: No Current residence: Apartment/Private Home Course Vital Signs Pulse Rate 103 H 06/25/17 11:10 Respiratory Rate 16 06/25/17 11:10 Blood Pressure 110/50 06/25/17 11:10 Pulse Oximetry 93 06/25/17 11:10 Pulse Rate 103 H 06/25/17 11:10 Respiratory Rate 16 06/25/17 11:10 Blood Pressure 110/50 06/25/17 11:10 Pulse Oximetry 93 06/25/17 11:10 Disposition Prescriptions: No Action Thiamine HCl 100 mg PO DAILY #30 tab Folic Acid [Folate] 1 mg PO DAILY tab Lactulose Oral Liq [Lactulose] 20 gm PO DAILY PRN solution PRN Reason: Constipation Pantoprazole Tab [Protonix Tab] 40 mg PO ACB tab Spironolactone [Aldactone] 25 mg PO BID tab Sertraline [Zoloft] 50 mg PO DAILY Nitrofurantoin Macrocrystal [Nitrofurantoin] 100 mg PO BID Hydrocortisone 2.5% Cream [Anusol-Hc 2.5% Cream] 1 applicatio TOP PRN Furosemide [Lasix 40 mg Tab] 40 mg PO BID Cyanocobalamin (Vitamin B-12) [Vitamin B12] 2,500 mcg PO DAILY #30 tab guaiFENesin [Cough Syrup] 100 mg PO Q4H PRN PRN Reason: Cough Benzocaine/Menthol Lozenge [CEPACOL SORE THROAT Lozenge] 1 lozenge MM PRN PRN lozenge PRN Reason: Sore Throat Potassium Chloride [K-DUR 20 mEq Tablet] 20 meq PO BIDWM tab Loperamide [Imodium] 2 mg PO Q4H PRN PRN Reason: Loose Stools Referrals: Valentina Jones MD [Family Provider] -
[2017-06-25] MEDS ORDERED: SALINE FLUSH 10ml SYRINGE IVF PRN (11:40)
--- NOTE | 2017-06-25 12:02 | XRay Report ---
Indication: increasing weakness, weight gain shortness of air PROCEDURE: XR chest 1V: Encounter: Initial Comparison: May 17, 2017 and October 15, 2016 Findings: Lungs are hypoinflated. There is airspace opacity in the left perihilar region. Linear atelectasis or scarring in the right base. No pneumothorax or definite pleural effusion. Heart size and mediastinal contours are within normal limits. Pulmonary vascularity is grossly normal. Impression: Left upper lobe pneumonia. .
[2017-06-25] MEDS ORDERED: CEFTRIAXONE (ER USE ONLY) 1 GM in NS 100 ML IV ONE (12:40)
[2017-06-25] MEDS: SALINE FLUSH 10ml SYRINGE IVF PRN (13:10)
[2017-06-25] MEDS ORDERED: LACTULOSE 20 GM/30 ML ORAL LIQUID PO PRN (13:19)
[2017-06-25] MEDS ORDERED: BENZOCAINE/MENTHOL SORE THROAT LOZENGE MM PRN (13:19)
--- NOTE | 2017-06-25 15:16 | History & Physical Report ---
History of Present Illness Date: 06/25/17 Chief complaint: Pneumonia, depression HPI: Nadia Isbell is a 51-year-old patient of Dr. Jones who is well known to the hospitalist service from prior admissions. She was most recently admitted on -05/25/17 for generalized weakness, electrolyte abnormalities,acute hepatitis , anasarca and c.diff. Upon discharge on 05/25/17, she was transferred to [facility] which she reports she remained for 2 weeks prior to returning home with home health. During her stay at [facility], she reports that she started to have an occasional cough with subjective fevers and chills. Since returning home, she has been receiving services from home health. She expresses dissatisfaction with her home health services stating that "all they do is take my vitals and fill my pill container". She reports that she has continued to have subjective fevers and chills, though no known fevers were noted by home health. This morning she reports that she "needed help" but home health wasn't helping her. When asked what services she needed but wasn't receiving, she was unable to identify any specific ways her home health nurse wasn't helping her. She reports that home health wasn't filling her medication box properly and "pills weren't arranged right". She questioned if she was receiving the right medications. Apparently the home health nurse discussed with her that she was beginning to prepare her for when she no longer had home health in the future which upset her. Due to feeling like she wasn't getting the help she needed, she said, "I'm just going to commit suicide". Her statements concerned the home health nurse prompting her to call EMS. EMS transferred her to [facility] ED for further evaluation. Upon arrival to the ED, she was noted to be afebrile. Labs were obtained and revealed WBC 5.5, stable, chronic anemia (Hgb 11.6) and thrombocytopenia (Plt 95). BMP was unremarkable. Total bilirubin was elevated at 6.00 which is close to her baseline given her chronic liver disease and suspected alcoholic cirrhosis. Ammonia was slightly elevated at 39. AST was elevated at 126 with ALT normal at 22. Given her persistent cough, CXR was obtained and revealed left upper lobe pneumonia. UA in the ED also revealed acute UTI with + nitrites and 2+ bacteria. She states that she was diagnosed by home health yesterday, 06/24/17, with a UTI but had not started medication yet. Given her pneumonia and UTI, Dr. Lincoln was consulted and she was admitted into observation status for further evaluation, IV antibiotics and close monitoring. Her length of stay is not expected to exceed more than 2 over nights. Review of Systems All systems PM: 10-point ROS was reviewed, no additional remarkable complaints except - Constitutional Constitutional: Present: anorexia, chills, fatigue, fever(s), malaise, weakness (generalized). Absent: headache(s) - EENMT Eyes: Absent: blurry vision, photophobia Ears: Absent: ear pain Balance: Absent: falling to one side Nose: Absent: nosebleeds Mouth/Throat: Absent: sore throat, changes in swallowing, dry mouth - Cardiovascular Cardiovascular: Present: edema. Absent: chest pain, palpitations, syncope, dyspnea on exertion, orthopnea Rhythm: Present: regular rhythm Vascular: Present: pedal edema. Absent: pallor of an extermity, unilateral swelling - Respiratory Respiratory: Present: cough. Absent: dyspnea, hemoptysis, dyspnea on exertion, wheezing, pain on inspiration, chest congestion - Gastrointestinal Gastrointestinal: Absent: abdominal pain, nausea, vomiting - Genitourinary Genitourinary: Absent: dysuria, flank pain, hematuria - Musculoskeletal Musculoskeletal: Present: muscle weakness. Absent: back pain, deformity - Integumentary/Breasts Integumentary: Present: jaundice. Absent: rash - Neurological Neurological: Present: weakness. Absent: confusion, convulsions, dizziness - Psychiatric Psychiatric: Present: depression, suicidal ideation - Endocrine Endocrine: Absent: flushing, palpitations - Hematologic/Lymphatic Hematologic/Lymphatic: Absent: easy bruising - Allergic/Immunologic Allergic/Immunologic: Absent: seasonal rhinorrhea Past Medical History Medical History Updates: Hypertension - no home medications. Sleep apnea. History of UTI. Chronic anemia. Osteoarthritis. Depression. History of alcohol abuse. Peripheral edema. Suspected alcoholic cirrhosis. Bladder and bowel incontinence. Functional decline. Gait instability. Generalized debility. Obesity - BMI 34.6. Surgical History: Denies PSH Family History Updates: Father - diabetes, of an [place]. Mother and sister's health histories are unknown. Family History: As Above - Social History Smoking status: Never smoker Substance use type: does not use Alcohol intake frequency: former alcohol drinker (Quit 04/2017; 3+ whiskey shots daily) Housing: apartment Household members: none Current occupational status: disabled Current residence: Apartment/Private Home Social history: PCP - Dr. Jones. Medications Home Medications Medication Instructions Recorded Confirmed Type Cyanocobalamin (Vitamin B-12) 2,500 mcg PO DAILY #30 tab 10/18/16 06/25/17 Rx [Vitamin B12] Thiamine HCl 100 mg PO DAILY #30 tab 10/18/16 06/25/17 Rx guaiFENesin [Cough Syrup] 100 mg PO Q4H PRN 05/17/17 06/25/17 History Benzocaine/Menthol Lozenge 1 lozenge MM PRN PRN lozenge 05/25/17 06/25/17 Rx [CEPACOL SORE THROAT Lozenge] Folic Acid [Folate] 1 mg PO DAILY tab 05/25/17 06/25/17 Rx Lactulose Oral Liq [Lactulose] 20 gm PO DAILY PRN solution 05/25/17 06/25/17 Rx Pantoprazole Tab [Protonix Tab] 40 mg PO ACB tab 05/25/17 06/25/17 Rx Potassium Chloride [K-DUR 20 mEq 20 meq PO BIDWM tab 05/25/17 06/25/17 Rx Tablet] Spironolactone [Aldactone] 25 mg PO BID tab 05/25/17 06/25/17 Rx Furosemide [Lasix 40 mg Tab] 40 mg PO BID 06/25/17 06/25/17 History Hydrocortisone 2.5% Cream 1 applicatio TOP PRN 06/25/17 06/25/17 History [Anusol-Hc 2.5% Cream] Loperamide [Imodium] 2 mg PO Q4H PRN 06/25/17 06/25/17 History Nitrofurantoin Macrocrystal 100 mg PO BID 06/25/17 06/25/17 History [Nitrofurantoin] Sertraline [Zoloft] 50 mg PO DAILY 06/25/17 06/25/17 History Allergies Allergy/AdvReac Type Severity Reaction Status Date / Time aspirin Allergy Unknown Rash Verified 06/25/17 11:07 Exam Vital Signs: Temperature 96.9 F 06/25/17 10:40 Pulse Rate 95 06/25/17 13:15 Respiratory Rate 16 06/25/17 13:15 Blood Pressure 104/73 06/25/17 13:15 Pulse Oximetry 92 06/25/17 13:15 Height/Weight/BMI: Height 5 ft 6 in Weight 212 lb 11.937 oz Body Mass Index 34.3 Comments: Patient seen shortly after her arrival to medical floor. Sitting up in bed, breathing easily on room air. Frequent non-productive cough. - Constitutional Present: well nourished, well developed, obese, cooperative Comments: tearful on exam. - Routine HEENT Exam Head: Present: normocephalic, atraumatic Eye: Present: PERRL, conjunctival icterus ENT: Present: mucous membranes moist, oropharynx clear - Routine Neck Exam Present: supple, full ROM, trachea midline - Routine Chest/Breast/Axilla Exam Chest wall: Absent: tenderness, pacemaker - Routine Respiratory Exam Present: decreased breath sounds. Absent: accessory muscle use, dyspnea, rhonchi, stridor, wheezes, crackles Comments: breathing easily on room air; frequent dry cough; no conversational dyspnea. - Routine Cardiovascular Exam Present: RRR, S1, S2 - Routine Abdominal Exam Present: soft, normoactive bowel sounds, distended Comments: Ascites. - Routine Extremities Exam Present: edema (3-4+ bilaterally), full ROM, pulses intact - Routine Back/Spine/Pelvis Exam Back/Spine: Present: full ROM. Absent: vertebral tenderness - Routine Skin Exam Present: dry, warm, jaundice Comments: afebrile. - Routine Neurological Exam Present: alert, moving all extremities, hearing grossly intact, normal speech - Routine Psychiatric Exam Present: cooperative, depressed Comments: tearful on exam - questionable paranoia. Results - Labs CBC & Chem 7: 06/25/17 12:11 06/25/17 12:11 - Imaging and Cardiology Chest x-ray Status: image reviewed by me Additional comments: Date of Exam: 06/25/17 Ordering Provider: Sean Leija MD Type of Exam(s): XR chest 1V Reason for Exam(s): increasing weakness, weight gain shortness of air Indication: increasing weakness, weight gain shortness of air PROCEDURE: XR chest 1V: Encounter: Initial Comparison: May 17, 2017 and October 15, 2016 Findings: Lungs are hypoinflated. There is airspace opacity in the left perihilar region. Linear atelectasis or scarring in the right base. No pneumothorax or definite pleural effusion. Heart size and mediastinal contours are within normal limits. Pulmonary vascularity is grossly normal. Impression: Left upper lobe pneumonia. Assessment and Plan Assessment and Plan: Assessment: CAP - left upper lobe, present on admission. UTI, present on admission. Generalized debility and functional decline. Hyperbilirubinemia, present on admission, chronic. Transaminitis, present on admission. Ascites, likely related to history of alcohol abuse, chronic. Thrombocytopenia, chronic. Hypertension - no home medications. Sleep apnea. Chronic anemia. Osteoarthritis. Depression. History of alcohol abuse. Peripheral edema. Suspected alcoholic cirrhosis. Bladder and bowel incontinence. Gait instability. Obesity - BMI 34.6. Plan Admit to observation status under the care of Dr. Lincoln. Rocephin initiated in ED. Will continue Rocephin 1g IV daily for coverage of pulmonary and urinary pathogens. UA sensitivity and culture pending. Will continue home medications. Protonix for GERD and GI protection. Monitor closely for signs of clinical deterioration. Oxygen as needed to maintain SAO2 >90%. Currently on room air and stable. No home oxygen. Consult PT/OT for evaluation and treatment plan to maintain strength and functional abilities. Recheck labs in AM to monitor blood counts, electrolytes and renal function. Recheck ammonia in AM - elevated on admission at 39. Monitor closely for neurologic changes given history of encephalopathy. Psychiatric evaluation given depression and prior suicidal statements. Upon discharge, patient's care will be returned to her PCP, Dr. Jones. Patient requests to be a DNR on exam. DVT Prophylaxis: SCD's GI Prophylaxis: Protonix Resuscitation Status: Do Not Resuscitate - Time spent with patient Time with patient PN: 70 minutes - Physician Narrative Physician: Kvng Lincoln MD Narrative: Date: 06/25/17 Time: 1900 Have independently interviewed and examined pt. Chart reviewed. Case discussed with ED physician, CM, and my PA. Care plan developed with my supervision; agree with above. Presents to ED via EMS after making morbid statement to her home health nurse. Patient with chronic ETOH and ETOH liver disease. Recently hospitalized at [facility] and spent several week at [facility] for function therapy to get stronger. Since return home, pt reports no ETOH consumption. Functional abilities reports vary - from patient: can't do anything, from nurse: can be up active, moving and cooking. Pt clearly distraught about her current medical condition. Emotional and tearful. Note dry cough that is very bothersome. Little appetite. Some nausea. Lungs: decreased, no distress CV: regular AB: soft nt, ascites EXT: +4 BLE MSE: awake, tearful Plan: OBS status. Initiate ceftriaxone for urinary and pulmonary coverage. SCD and TIAGO hose to decrease edema. Hold on IVF due to her liver disease. Will have psych eval mental status due to morbid thought. Overall prognosis not favorable given her liver disease. Hospital Course Summary Disclaimer: The visit summary below is not to be considered part of the above Progress Note. Hospital Course: Plan - 06/25/17: Admit to observation status under the care of Dr. Lincoln. Rocephin initiated in ED. Will continue Rocephin 1g IV daily for coverage of pulmonary and urinary pathogens. UA sensitivity and culture pending. Will continue home medications. Protonix for GERD and GI protection. Monitor closely for signs of clinical deterioration. Oxygen as needed to maintain SAO2 >90%. Currently on room air and stable. No home oxygen. Consult PT/OT for evaluation and treatment plan to maintain strength and functional abilities. Recheck labs in AM to monitor blood counts, electrolytes and renal function. Recheck ammonia in AM - elevated on admission at 39. Monitor closely for neurologic changes given history of encephalopathy. May consider psychiatric evaluation given depression and prior suicidal statements. Upon discharge, patient's care will be returned to her PCP, Dr. Jones. Patient requests to be a DNR on exam.
[2017-06-25] MEDS ORDERED: ALBUTEROL/IPRATROPIUM 2.5mg-0.5mg/3ml NEB AEROSOL PRN (15:32)
[2017-06-25] MEDS: FUROSEMIDE 40 MG TABLET PO SCH (16:57)
[2017-06-25] MEDS: ALBUTEROL/IPRATROPIUM 2.5mg-0.5mg/3ml NEB AEROSOL SCH (19:24)
[2017-06-25] MEDS: SPIRONOLACTONE 25 MG TABLET PO SCH (20:54)
[2017-06-26] MEDS: SALINE FLUSH 10ml SYRINGE IVF PRN ×4 (00:16→22:53)
[2017-06-26] MEDS: PANTOPRAZOLE 40 MG TABLET PO SCH (06:07)
[2017-06-26] MEDS: ALBUTEROL/IPRATROPIUM 2.5mg-0.5mg/3ml NEB AEROSOL SCH ×4 (08:12→21:15)
[2017-06-26] MEDS: GUAIFENESIN 200mg/10ml ORAL LIQUID PO PRN ×2 (08:50→17:27)
[2017-06-26] MEDS: CYANOCOBALAMIN (B-12) 500mcg TABLET PO SCH (08:51)
[2017-06-26] MEDS: FUROSEMIDE 40 MG TABLET PO SCH ×2 (08:51→14:10)
[2017-06-26] MEDS: FOLIC ACID 1 MG TABLET PO SCH (09:20)
[2017-06-26] MEDS: SERTRALINE 50 MG TABLET PO SCH (09:20)
[2017-06-26] MEDS: CEFTRIAXONE 1 G in NS 100 ML IV SCH (09:21)
[2017-06-26] MEDS: SPIRONOLACTONE 25 MG TABLET PO SCH ×2 (09:21→20:20)
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
--- NOTE | 2017-06-26 13:14 | Progress Note ---
- Date 06/26/17 Subjective: Nadia reports that she was up all night coughing but denies SOA. She has some word-finding problems today -- has difficulty thinking of the right word to say. She c/o b/l leg pain and swelling. She denies abdominal pain but has no appetite. She has not had any n/v. She feels weak overall. She also reports a recurrent bloody nose that started prior to admission. Objective Vital signs: Temperature 98.0 F 06/26/17 07:11 Pulse Rate 92 06/26/17 07:11 Respiratory Rate 20 06/26/17 11:26 Blood Pressure 101/64 06/26/17 07:11 Pulse Oximetry 93 06/26/17 11:26 Height/Weight/BMI: Height 1.68 m Weight 97.7 kg Body Mass Index 34.3 - Constitutional Present: no acute distress - Routine HEENT Exam Head: Present: normocephalic Eye: Present: conjunctival icterus. Absent: scleral injection ENT: Present: mucous membranes moist, oropharynx clear, nares patent (dried blood right naris) - Routine Respiratory Exam Present: crackles (left) - Routine Cardiovascular Exam Present: RRR, S1, S2 - Routine Abdominal Exam Present: normoactive bowel sounds, non tender, distended - Routine Extremities Exam Present: edema (4+ B/L) - Routine Skin Exam Present: dry, warm - Routine Neurological Exam Present: alert, normal speech - Routine Psychiatric Exam Present: cooperative Results - Labs CBC & Chem 7: 06/26/17 04:29 06/26/17 04:29 Assessment and Plan Assessment and Plan: Assessment: CAP - left upper lobe, present on admission. UTI - mixed adán on culture. Concern for hepatic encephalopathy Intermittent epistaxis Generalized debility and functional decline. Hyperbilirubinemia, present on admission, chronic. Transaminitis, present on admission. Ascites, likely related to history of alcohol abuse, chronic. Thrombocytopenia, chronic. Hypertension - no home medications. Sleep apnea. Chronic anemia. Osteoarthritis. Depression. History of alcohol abuse. Peripheral edema. Suspected alcoholic cirrhosis. Bladder and bowel incontinence. Gait instability. Obesity - BMI 34.6. Plan Ammonia increasing and pt has word finding difficulty today -- concerned about hepatic encephalopathy. Start Lactulose 20 gm TID. Total bili and LFTs decreasing. Evaluated by Dr. Domínguez -- recommends outpatient therapy at [facility]. CXR personally reviewed: Continue Rocephin for CAP -- will add azithromycin. Urine culture shows mixed adán. Hgb decreased from 11.6 to 9.8 - monitor (In May, hgb was in the 8s). Platelets low but stable. Start nasal saline and Afrin/clamping PRN epistaxis. Discussed with Dr. Julio. DVT Prophylaxis: SCD's GI Prophylaxis: Protonix Resuscitation Status: Do Not Resuscitate - Physician Narrative Physician: Figueroa Julio MD Narrative: Date: 06/26/17 Time: 1734 I have independently interviewed and examined pt. Chart reviewed. Case discussed with COMBINING MACHINE OPERATOR. Care plan developed with my supervision; agree with above. c/o cough during the night that makes it hard for her to sleep. c/o bloody nose at times. c/o constipation after stopping diarrhea. c/o no appetite. Says she is frustrated with how she is doing. Lungs: decreased, no distress CV: regular AB: soft nt, ascites EXT: +4 BLE MSE: awake, tearful Plan: Patient does not have UTI. Azithromycin added to ceftriaxone to treat MANDO PNA. Trial of saline nasal spray and Afrin for nose bleeds. Check INR. Psych recommends outpatient treatment at [facility]. Patient has HH in place. May be ready to dismiss tomorrow. Hospital Course Summary Disclaimer: The visit summary below is not to be considered part of the above Progress Note. Hospital Course: Plan - 06/25/17: Admit to observation status under the care of Dr. Lincoln. Rocephin initiated in ED. Will continue Rocephin 1g IV daily for coverage of pulmonary and urinary pathogens. UA sensitivity and culture pending. Will continue home medications. Protonix for GERD and GI protection. Monitor closely for signs of clinical deterioration. Oxygen as needed to maintain SAO2 >90%. Currently on room air and stable. No home oxygen. Consult PT/OT for evaluation and treatment plan to maintain strength and functional abilities. Recheck labs in AM to monitor blood counts, electrolytes and renal function. Recheck ammonia in AM - elevated on admission at 39. Monitor closely for neurologic changes given history of encephalopathy. May consider psychiatric evaluation given depression and prior suicidal statements. Upon discharge, patient's care will be returned to her PCP, Dr. Jones. Patient requests to be a DNR on exam. 06/26/17 Ammonia increasing and pt has word finding difficulty today -- concerned about hepatic encephalopathy. Start Lactulose 20 gm TID. Total bili and LFTs decreasing. Evaluated by Dr. Domínguez -- recommends outpatient therapy at [facility]. CXR personally reviewed: Continue Rocephin for CAP -- will add azithromycin. Urine culture shows mixed adán. Hgb decreased from 11.6 to 9.8 - monitor (In May, hgb was in the 8s). Platelets low but stable. Start nasal saline and Afrin/clamping PRN epistaxis.
[2017-06-26] MEDS ORDERED: SALINE 0.65% NASAL SPRAY 44 ML BOTTLE EA NOSTRIL PRN (14:13)
[2017-06-26] MEDS ORDERED: OXYMETAZOLINE 0.05% NASAL SPRAY 15ml EA NOSTRIL PRN (14:14)
[2017-06-26] MEDS: AZITHROMYCIN IV 500 MG in NS 250ml 250 ML IV SCH (15:24)
[2017-06-26] MEDS: LACTULOSE 20 GM/30 ML ORAL LIQUID PO SCH ×2 (15:24→20:19)
[2017-06-26] MEDS ORDERED: PROCHLORPERAZINE 10 MG/2 ML INJECTION IVP PRN (22:49)
[2017-06-27] MEDS: PANTOPRAZOLE 40 MG TABLET PO SCH (06:27)
[2017-06-27] MEDS: ALBUTEROL/IPRATROPIUM 2.5mg-0.5mg/3ml NEB AEROSOL SCH ×4 (06:55→19:21)
[2017-06-27] MEDS: LACTULOSE 20 GM/30 ML ORAL LIQUID PO SCH ×3 (09:07→20:30)
[2017-06-27] MEDS: CYANOCOBALAMIN (B-12) 500mcg TABLET PO SCH (09:07)
[2017-06-27] MEDS: SERTRALINE 50 MG TABLET PO SCH (09:07)
[2017-06-27] MEDS: SPIRONOLACTONE 25 MG TABLET PO SCH ×2 (09:07→20:30)
[2017-06-27] MEDS: FOLIC ACID 1 MG TABLET PO SCH (09:08)
[2017-06-27] MEDS: FUROSEMIDE 40 MG TABLET PO SCH ×2 (09:08→14:07)
[2017-06-27] MEDS: CEFTRIAXONE 1 G in NS 100 ML IV SCH (09:08)
[2017-06-27] MEDS: SALINE FLUSH 10ml SYRINGE IVF PRN ×4 (09:10→17:24)
[2017-06-27] MEDS: NS FLUSH BAG 500ml IV PRN (09:10)
--- NOTE | 2017-06-27 13:56 | Progress Note ---
- Date 06/27/17 Subjective: Nadia is seen today in follow up. She remains very pessimistic re: her current care. She appears chronically ill and weak. Still some mild confusion- she does not like the lactulose. We discussed importance of why she needs to take it. She appears quite fluid overloaded, does endorse some SOA when up in room. Abdomen is very distended with likely ascites as well. Chart is reviewed due to collateral information. I am familiar with her from prior hospital stay as well. Objective Vital signs: Temperature 97.3 F 06/27/17 13:45 Pulse Rate 115 H 06/27/17 13:45 Respiratory Rate 18 06/27/17 13:45 Blood Pressure 102/55 06/27/17 13:45 Pulse Oximetry 93 06/27/17 13:45 Rhythm: Sinus Tachycardia Height/Weight/BMI: Height 1.68 m Weight 97 kg Body Mass Index 34.3 - Constitutional Present: mild distress, cachectic (Obese, but peripheral muscle wasting. ), other (Poor insight, chronically ill. ) - Routine HEENT Exam Head: Present: normocephalic Eye: Present: EOMI, PERRL ENT: Present: mucous membranes moist - Routine Respiratory Exam Present: dyspnea (At rest. ), decreased breath sounds, distant breath sounds, diminished air movement - Routine Cardiovascular Exam Present: RRR, S1, S2, no murmur - Routine Abdominal Exam Present: soft, normoactive bowel sounds, distended (She has marked ascites. + Fluid wave in lower abdomen. Liver borders enlarged by "scratch test."). Absent : non tender - Routine Extremities Exam Present: edema (Marked peripheral edema. ) - Routine Musculoskeletal Exam Musculoskeletal: Present: limited range of motion. Absent: normal strength, moving extremities well - Routine Skin Exam Present: intact (Skin is sallow, pale. ), dry, warm - Routine Neurological Exam Present: alert, moving all extremities - Routine Psychiatric Exam Present: cooperative, depressed. Absent: good insight, good judgment Results - Labs CBC & Chem 7: 06/27/17 03:57 06/27/17 03:57 - Echocardiogram History of Echocardiogram: Recent Echo- Hyperdynamic with EF > 70% - Imaging and Cardiology Chest x-ray Additional comments: Impression: Left upper lobe pneumonia. . Assessment and Plan Assessment and Plan: Assessment: CAP - left upper lobe, present on admission. UTI - mixed adán on culture. Concern for hepatic encephalopathy Intermittent epistaxis Generalized debility and functional decline. Hyperbilirubinemia, present on admission, chronic. Transaminitis, present on admission. Ascites, likely related to history of alcohol abuse, chronic. Thrombocytopenia, chronic. Hypertension - no home medications. Sleep apnea. Chronic anemia. Osteoarthritis. Depression. History of alcohol abuse. Peripheral edema. Suspected alcoholic cirrhosis. Bladder and bowel incontinence. Gait instability. Obesity - BMI 34.6. Worsening liver failure Prior very elevated Ferritin - R/O hemochromatosis Plan 06/27/17 Nadia remains very ill. She continues to need in patient monitoring and aggressive treatment. We need to change her to inpatient treatment status *Pulm- She remains SOA. continue Ceftriaxone, Azithro. o2 PRN. Nebs. repeat CXR in AM. *Liver failure, progressive Repeat Ferritin- if she continues to have severely elevated ferritin, may need to refer to GI. She has significant edema/ascites. Add Low dose Lasix. continue aldactone. Use caution due to lower BP. HR is elevating- monitor closely. May need to consider propranolol if her BP will support. Continue lactulose. She reports ETOH cessation. INR elevated- autoanticoag. *Depression, with suicidal remarks- Psychiatry following, outpatient f/u. *Severe peripheral edema, ascites- diurese as much as she will tolerate. *Tachycardia- add telemetry. Add rate suppressing meds if she will tolerate. She remains very ill. We cannot safely dismiss her home at this time. Change to inpatient status. DVT Prophylaxis: SCD's GI Prophylaxis: Protonix Resuscitation Status: Do Not Resuscitate - Time spent with patient Time with patient PN: 35 minutes - Physician Narrative Physician: Figueroa Julio MD Narrative: Date: 06/27/17 Time: 1700 I have independently interviewed and examined the patient. Chart reviewed. Case discussed with AGRICULTURAL EQUIPMENT MECHANIC. Care plan developed with my supervision; agree with above. c/o cough when lying flat in bed. c/o loose stools and lactulose. She has had 2 loose stools today. Says she is frustrated with her health problems and how she is doing. She did not have a nosebleed after using saline nasal spray. Lungs: decreased, no distress CV: regular AB: soft nt, ascites EXT: +4 BLE MSE: awake, tearful Plan:Azithromycin, ceftriaxone to treat MANDO PNA. Continue lactulose. Trial of saline nasal spray and Afrin helping with nose bleeds. Monitor INR. Coagulopathy likely d/t liver disease. Propranolol started. Patient has had bradycardia in the past but is tachycardic at this time. Monitor on tele. Psych recommends outpatient treatment at [facility]. Hospital Course Summary Disclaimer: The visit summary below is not to be considered part of the above Progress Note. Hospital Course: Plan - 06/25/17: Admit to observation status under the care of Dr. Lincoln. Rocephin initiated in ED. Will continue Rocephin 1g IV daily for coverage of pulmonary and urinary pathogens. UA sensitivity and culture pending. Will continue home medications. Protonix for GERD and GI protection. Monitor closely for signs of clinical deterioration. Oxygen as needed to maintain SAO2 >90%. Currently on room air and stable. No home oxygen. Consult PT/OT for evaluation and treatment plan to maintain strength and functional abilities. Recheck labs in AM to monitor blood counts, electrolytes and renal function. Recheck ammonia in AM - elevated on admission at 39. Monitor closely for neurologic changes given history of encephalopathy. May consider psychiatric evaluation given depression and prior suicidal statements. Upon discharge, patient's care will be returned to her PCP, Dr. Jones. Patient requests to be a DNR on exam. 06/26/17 Ammonia increasing and pt has word finding difficulty today -- concerned about hepatic encephalopathy. Start Lactulose 20 gm TID. Total bili and LFTs decreasing. Evaluated by Dr. Domínguez -- recommends outpatient therapy at [facility]. CXR personally reviewed: Continue Rocephin for CAP -- will add azithromycin. Urine culture shows mixed adán. Hgb decreased from 11.6 to 9.8 - monitor (In May, hgb was in the 8s). Platelets low but stable. Start nasal saline and Afrin/clamping PRN epistaxis. 06/27/17 Nadia remains very ill. She continues to need in patient monitoring and aggressive treatment. We need to change her to inpatient treatment status *Pulm- She remains SOA. continue Ceftriaxone, Azithro. o2 PRN. Nebs. repeat CXR in AM. *Liver failure, progressive Repeat Ferritin- if she continues to have severely elevated ferritin, may need to refer to GI. She has significant edema/ascites. Add Low dose Lasix. continue aldactone. Use caution due to lower BP. HR is elevating- monitor closely. May need to consider propranolol if her BP will support. Continue lactulose. She reports ETOH cessation. INR elevated- autoanticoag. *Depression, with suicidal remarks- Psychiatry following, outpatient f/u. *Severe peripheral edema, ascites- diurese as much as she will tolerate. *Tachycardia- add telemetry. Add rate suppressing meds if she will tolerate. She remains very ill. We cannot safely dismiss her home at this time. Change to inpatient status.
[2017-06-27] MEDS: AZITHROMYCIN IV 500 MG in NS 250ml 250 ML IV SCH (14:07)
[2017-06-27] MEDS: PROPRANOLOL 10 MG TABLET PO SCH ×2 (14:50→20:30)
[2017-06-27] MEDS: FUROSEMIDE 40 MG/4 ML INJECTION IVP SCH (17:24)
[2017-06-27] MEDS ORDERED: PROPRANOLOL 10 MG TABLET PO SCH (21:00)
[2017-06-28] MEDS: FUROSEMIDE 40 MG/4 ML INJECTION IVP SCH ×3 (01:40→18:05)
[2017-06-28] MEDS: PANTOPRAZOLE 40 MG TABLET PO SCH (05:55)
[2017-06-28] MEDS: ALBUTEROL/IPRATROPIUM 2.5mg-0.5mg/3ml NEB AEROSOL SCH ×4 (07:32→19:05)
[2017-06-28] MEDS ORDERED: ALTEPLASE (Cathflo*) 2mg INJECTION IPL ONE (08:24)
[2017-06-28] MEDS: CYANOCOBALAMIN (B-12) 500mcg TABLET PO SCH (09:26)
[2017-06-28] MEDS: SERTRALINE 50 MG TABLET PO SCH (09:27)
[2017-06-28] MEDS: CEFTRIAXONE 1 G in NS 100 ML IV SCH (09:27)
[2017-06-28] MEDS: SPIRONOLACTONE 25 MG TABLET PO SCH ×2 (09:27→21:58)
[2017-06-28] MEDS: FOLIC ACID 1 MG TABLET PO SCH (09:27)
[2017-06-28] MEDS: LACTULOSE 20 GM/30 ML ORAL LIQUID PO SCH ×3 (09:27→15:54)
[2017-06-28] MEDS: PROPRANOLOL 10 MG TABLET PO SCH ×2 (09:28→21:58)
[2017-06-28] MEDS: NS FLUSH BAG 500ml IV PRN (09:29)
[2017-06-28] MEDS: SALINE FLUSH 10ml SYRINGE IVF PRN ×3 (09:29→18:05)
[2017-06-28] MEDS: GUAIFENESIN 200mg/10ml ORAL LIQUID PO PRN (12:26)
--- NOTE | 2017-06-28 14:08 | Progress Note ---
- Date 06/28/17 Subjective: Nadia is seen today in follow up. She reports that she is having a lot of anxiety and worry regarding her ongoing medical needs and is concerned that her insurance will "run out". She does continue to have significant abdominal ascites with some and intermittent abdominal pain. Reports that she has minimal appetite and does have intermittent nausea. Weight continues to trend up. Objective Vital signs: Temperature 97.4 F 06/28/17 07:25 Pulse Rate 80 06/28/17 08:00 Respiratory Rate 25 H 06/28/17 10:48 Blood Pressure 85/48 06/28/17 07:25 Pulse Oximetry 93 06/28/17 07:39 Rhythm: Sinus Tachycardia Height/Weight/BMI: Weight 99.5 kg - Constitutional Present: no acute distress, well nourished, well developed - Routine HEENT Exam Eye: Present: EOMI ENT: Present: mucous membranes moist, dentition normal - Routine Respiratory Exam Present: CTA bilaterally. Absent: wheezes - Routine Cardiovascular Exam Present: RRR, S1, S2. Absent: murmur - Routine Abdominal Exam Present: tenderness, distended - Routine Extremities Exam Present: normal capillary refill - Routine Skin Exam Present: intact, dry, warm, jaundice - Routine Neurological Exam Present: alert, oriented X3, CN II-XII intact, moving all extremities - Routine Lymphatic Exam Lymphatic: Absent: adenopathy - Routine Psychiatric Exam Present: normal affect, cooperative Results - Labs CBC & Chem 7: 06/28/17 04:29 06/28/17 04:29 Assessment and Plan Assessment and Plan: Assessment: CAP - left upper lobe, present on admission. UTI - mixed adán on culture. Concern for hepatic encephalopathy Intermittent epistaxis Generalized debility and functional decline. Hyperbilirubinemia, present on admission, chronic. Transaminitis, present on admission. Ascites, likely related to history of alcohol abuse, chronic. Thrombocytopenia, chronic. Hypertension - no home medications. Sleep apnea. Chronic anemia. Osteoarthritis. Depression. History of alcohol abuse. Peripheral edema. Suspected alcoholic cirrhosis. Bladder and bowel incontinence. Gait instability. Obesity - BMI 34.6. Worsening liver failure Prior very elevated Ferritin - R/O hemochromatosis 06/28 Abdominal ultrasound this morning reveals moderate ascites. Could consider surgical consultation Continues on Rocephin and Azithromycin for antimicrobial coverage of CAP Bilirubin continues to trend down Continue on Lasix and Aldactone for gentle diuresing. Unfortunately, weight continues to trend up. Continue lactulose and history of alcohol use Hgb stable Case discussed with CM regarding healthcare coverage concerns Discussed with attending, Dr Lincoln DVT Prophylaxis: SCD's Resuscitation Status: Do Not Resuscitate - Time spent with patient Time with patient PN: 35 minutes - Physician Narrative Physician: Kvng Lincoln MD Narrative: Date: 06/28/17 Time: 1944 Have independently interviewed and examined pt. Chart reviewed. Case discussed with CM and my BRUSH FINISHER. Care plan developed with my supervision; agree with above. Doing fair. Did work with therapy (reluctant) and balance/strength okay. Stools frequent. Breathing varied. Lungs: decreased, no distress CV: regular AB: soft nt EXT: +4 edema MSE: awake alert Plan: Had long discussion with patient regarding her current health status. Stressed monitoring fluid intake (can have up to 2 quarts a day) but also greatly stressed sodium restriction. Very important to check labels for sodium content. Encouraged ambulation as will help with veinous circulation. Important to elevate LE at rest. Stressed use of TIAGO hose to force edema back into circulation. As ammonia decreasing and patient very bothered by urgent stools, will decrease lactulose to once a day. Stressed with patient importance of bowel regularity-need to have soft stool daily. May need to adjust lactulose dose/frequency at home to maintain soft stool and decrease potential for diarrhea. Congratulated patient on her ETOH abstinence and encouraged to work strongly to continue to avoid alcohol. Will recheck CXR in am for f/u of infiltrate. Time spent with patient care 35 minutes with majority of time one on one discussion and counseling on her medical condition and treatments. Hospital Course Summary Disclaimer: The visit summary below is not to be considered part of the above Progress Note. Hospital Course: Plan - 06/25/17: Admit to observation status under the care of Dr. Lincoln. Rocephin initiated in ED. Will continue Rocephin 1g IV daily for coverage of pulmonary and urinary pathogens. UA sensitivity and culture pending. Will continue home medications. Protonix for GERD and GI protection. Monitor closely for signs of clinical deterioration. Oxygen as needed to maintain SAO2 >90%. Currently on room air and stable. No home oxygen. Consult PT/OT for evaluation and treatment plan to maintain strength and functional abilities. Recheck labs in AM to monitor blood counts, electrolytes and renal function. Recheck ammonia in AM - elevated on admission at 39. Monitor closely for neurologic changes given history of encephalopathy. May consider psychiatric evaluation given depression and prior suicidal statements. Upon discharge, patient's care will be returned to her PCP, Dr. Jones. Patient requests to be a DNR on exam. 06/26/17 Ammonia increasing and pt has word finding difficulty today -- concerned about hepatic encephalopathy. Start Lactulose 20 gm TID. Total bili and LFTs decreasing. Evaluated by Dr. Domínguez -- recommends outpatient therapy at [facility]. CXR personally reviewed: Continue Rocephin for CAP -- will add azithromycin. Urine culture shows mixed adán. Hgb decreased from 11.6 to 9.8 - monitor (In May, hgb was in the 8s). Platelets low but stable. Start nasal saline and Afrin/clamping PRN epistaxis. 06/27/17 Nadia remains very ill. She continues to need in patient monitoring and aggressive treatment. We need to change her to inpatient treatment status *Pulm- She remains SOA. continue Ceftriaxone, Azithro. o2 PRN. Nebs. repeat CXR in AM. *Liver failure, progressive Repeat Ferritin- if she continues to have severely elevated ferritin, may need to refer to GI. She has significant edema/ascites. Add Low dose Lasix. continue aldactone. Use caution due to lower BP. HR is elevating- monitor closely. May need to consider propranolol if her BP will support. Continue lactulose. She reports ETOH cessation. INR elevated- autoanticoag. *Depression, with suicidal remarks- Psychiatry following, outpatient f/u. *Severe peripheral edema, ascites- diurese as much as she will tolerate. *Tachycardia- add telemetry. Add rate suppressing meds if she will tolerate. She remains very ill. We cannot safely dismiss her home at this time. Change to inpatient status. 06/28 Abdominal ultrasound this morning reveals moderate ascites. Continues on Rocephin and Azithromycin for antimicrobial coverage of CAP. Will recheck CXR in am. Bilirubin continues to trend down. Continue on Lasix and Aldactone for gentle diuresing. Unfortunately, weight continues to trend up. Continue lactulose and history of alcohol use - can decrease to daily. Case discussed with CM regarding healthcare coverage concerns
--- NOTE | 2017-06-28 14:09 | Ultrasound Report ---
Indication: Assess ascites PROCEDURE: US abdomen limited: Encounter: Initial Comparison: None Technique: Grayscale sonographic imaging of the four quadrants of the abdomen was performed. Findings/ Impression: Moderate ascites is seen in the four quadrants of the abdomen. .
[2017-06-28] MEDS: AZITHROMYCIN IV 500 MG in NS 250ml 250 ML IV SCH (14:40)
[2017-06-28 16:39] VITALS: BMI 35.4
[2017-06-29] MEDS: FUROSEMIDE 40 MG/4 ML INJECTION IVP SCH ×2 (01:01→11:13)
[2017-06-29] MEDS: PANTOPRAZOLE 40 MG TABLET PO SCH (06:24)
[2017-06-29] MEDS: SALINE FLUSH 10ml SYRINGE IVF PRN (06:24)
[2017-06-29] MEDS: ALBUTEROL/IPRATROPIUM 2.5mg-0.5mg/3ml NEB AEROSOL SCH ×2 (06:32→09:54)
[2017-06-29 08:11] VITALS: TEMP 98.8
--- NOTE | 2017-06-29 08:46 | XRay Report ---
Indication: F/U infiltrate PROCEDURE: XR chest 2V: Encounter: Initial Comparison: 06/25/2017 Findings: The examination is slightly expiratory in nature. There is mild diffuse interstitial prominence with scattered linear changes of atelectasis and/or scarring. There is no definite lobar consolidation to suggest pneumonia. No definite pleural effusion trachea is midline. Heart size is normal. There is no definite mediastinal or hilar adenopathy. Impression: Expiratory exam with scattered linear changes of atelectasis and/or scarring. .
[2017-06-29] MEDS ORDERED: LACTULOSE 20 GM/30 ML ORAL LIQUID PO SCH (09:00)
[2017-06-29] MEDS: CEFTRIAXONE 1 G in NS 100 ML IV SCH (09:31)
[2017-06-29] MEDS: FOLIC ACID 1 MG TABLET PO SCH (09:32)
[2017-06-29] MEDS: CYANOCOBALAMIN (B-12) 500mcg TABLET PO SCH (09:32)
[2017-06-29] MEDS: SERTRALINE 50 MG TABLET PO SCH (09:33)
[2017-06-29] MEDS: PROPRANOLOL 10 MG TABLET PO SCH (09:34)
[2017-06-29] MEDS: SPIRONOLACTONE 25 MG TABLET PO SCH (09:34)
[2017-06-29 10:03] VITALS: RESP 18
[2017-06-29 10:38] VITALS: O2SAT 88
[2017-06-29 11:12] VITALS: BP 95/61; PULSE 95
--- NOTE | 2017-06-29 11:35 | Discharge Summary ---
Discharge Information Date of admission: 06/27/17 14:03 Anticipated date of discharge: 06/29/17 Attending Physician: Kvng Lincoln MD Primary care physician: Valentina Jones MD Consults: Dr Norm Domínguez- Psychiatrist Discharge diagnosis CAP - left upper lobe, present on admission Associated conditions and complications UTI - mixed adán on culture Concern for hepatic encephalopathy Intermittent epistaxis Generalized debility and functional decline Hyperbilirubinemia, present on admission, chronic Transaminitis, present on admission Ascites, likely related to history of alcohol abuse, chronic Thrombocytopenia, chronic Suspected alcoholic cirrhosis Hypertension - no home medications Sleep apnea Chronic anemia Osteoarthritis Depression History of alcohol abuse Peripheral edema Bladder and bowel incontinence Gait instability Obesity - BMI 34.6 Worsening liver failure Prior very elevated Ferritin - R/O hemochromatosis - Procedures Procedures: None - Laboratory Labs: 06/29/17 04:15 06/29/17 04:15 - Microbiology Microbiology 06/25/17 12:48 Urine, Voided- Urine Culture - Final- Mixed Bacterial Adán - Radiology Radiology: 06/25/17- Chest Xray- Impression: Left upper lobe pneumonia. 06/28/17- domicile ultrasound- Impression: Moderate ascites is seen in the four quadrants of the abdomen. 06/29/17- Impression: Expiratory exam with scattered linear changes of atelectasis and/or scarring. - Pathology None History of Present Illness HPI: Nadia Isbell is a 51-year-old patient of Dr. Jones who is well known to the hospitalist service from prior admissions. She was most recently admitted on -05/25/17 for generalized weakness, electrolyte abnormalities,acute hepatitis , anasarca and c.diff. Upon discharge on 05/25/17, she was transferred to [facility] which she reports she remained for 2 weeks prior to returning home with home health. During her stay at [place], she reports that she started to have an occasional cough with subjective fevers and chills. Since returning home, she has been receiving services from home health. She expresses dissatisfaction with her home health services stating that "all they do is take my vitals and fill my pill container". She reports that she has continued to have subjective fevers and chills, though no known fevers were noted by home health. This morning she reports that she "needed help" but home health wasn't helping her. When asked what services she needed but wasn't receiving, she was unable to identify any specific ways her home health nurse wasn't helping her. She reports that home health wasn't filling her medication box properly and "pills weren't arranged right". She questioned if she was receiving the right medications. Apparently the home health nurse discussed with her that she was beginning to prepare her for when she no longer had home health in the future which upset her. Due to feeling like she wasn't getting the help she needed, she said, "I'm just going to commit suicide". Her statements concerned the home health nurse prompting her to call EMS. EMS transferred her to [facility] [place] further evaluation. Upon arrival to the ED, she was noted to be afebrile. Labs were obtained and revealed WBC 5.5, stable, chronic anemia (Hgb 11.6) and thrombocytopenia (Plt 95). BMP was unremarkable. Total bilirubin was elevated at 6.00 which is close to her baseline given her chronic liver disease and suspected alcoholic cirrhosis. Ammonia was slightly elevated at 39. AST was elevated at 126 with ALT normal at 22. Given her persistent cough, CXR was obtained and revealed left upper lobe pneumonia. UA in the ED also revealed acute UTI with + nitrites and 2+ bacteria. She states that she was diagnosed by home health yesterday, 06/24/17, with a UTI but had not started medication yet. Given her pneumonia and UTI, Dr. Lincoln was consulted and she was admitted into observation status for further evaluation, IV antibiotics and close monitoring. Her length of stay is not expected to exceed more than 2 over nights. For complete details of the H&P refer to that document. Objective Vital signs: Temperature 98.8 F 06/29/17 08:00 Pulse Rate 95 06/29/17 11:12 Respiratory Rate 18 06/29/17 09:54 Blood Pressure 95/61 06/29/17 11:12 Pulse Oximetry 88 L 06/29/17 10:03 Rhythm: Sinus Tachycardia Height/Weight/BMI: Height 1.68 m Weight 99.9 kg Body Mass Index 35.4 - Constitutional Present: no acute distress, well nourished, well developed - Routine HEENT Exam Eye: Present: EOMI ENT: Present: mucous membranes moist, dentition normal - Routine Respiratory Exam Present: diminished air movement. Absent: wheezes - Routine Cardiovascular Exam Present: RRR, S1, S2. Absent: murmur - Routine Abdominal Exam Present: soft, normoactive bowel sounds, tenderness, distended Comments: Abdominal ascites - Routine Extremities Exam Present: edema - Routine Skin Exam Present: intact, dry, warm - Routine Neurological Exam Present: alert, oriented X3, CN II-XII intact, moving all extremities - Routine Lymphatic Exam Lymphatic: Absent: adenopathy - Routine Psychiatric Exam Present: normal affect, cooperative Hospital Course This is a general summary of the patient's hospital course. For more details refer to the complete medical record. Hospital course: Plan - 06/25/17: Admit to observation status under the care of Dr. Lincoln. Rocephin initiated in ED. Will continue Rocephin 1g IV daily for coverage of pulmonary and urinary pathogens. UA sensitivity and culture pending. Will continue home medications. Protonix for GERD and GI protection. Monitor closely for signs of clinical deterioration. Oxygen as needed to maintain SAO2 >90%. Currently on room air and stable. No home oxygen. Consult PT/OT for evaluation and treatment plan to maintain strength and functional abilities. Recheck labs in AM to monitor blood counts, electrolytes and renal function. Recheck ammonia in AM - elevated on admission at 39. Monitor closely for neurologic changes given history of encephalopathy. May consider psychiatric evaluation given depression and prior suicidal statements. Upon discharge, patient's care will be returned to her PCP, Dr. Jones. Patient requests to be a DNR on exam. 06/26/17 Ammonia increasing and pt has word finding difficulty today -- concerned about hepatic encephalopathy. Start Lactulose 20 gm TID. Total bili and LFTs decreasing. Evaluated by Dr. Domínguez -- recommends outpatient therapy at [facility]. CXR personally reviewed: Continue Rocephin for CAP -- will add azithromycin. Urine culture shows mixed adán. Hgb decreased from 11.6 to 9.8 - monitor (In May, hgb was in the 8s). Platelets low but stable. Start nasal saline and Afrin/clamping PRN epistaxis. 06/27/17 Nadia remains very ill. She continues to need in patient monitoring and aggressive treatment. We need to change her to inpatient treatment status *Pulm- She remains SOA. continue Ceftriaxone, Azithro. o2 PRN. Nebs. repeat CXR in AM. *Liver failure, progressive Repeat Ferritin- if she continues to have severely elevated ferritin, may need to refer to GI. She has significant edema/ascites. Add Low dose Lasix. continue aldactone. Use caution due to lower BP. HR is elevating- monitor closely. May need to consider propranolol if her BP will support. Continue lactulose. She reports ETOH cessation. INR elevated- autoanticoag. *Depression, with suicidal remarks- Psychiatry following, outpatient f/u. *Severe peripheral edema, ascites- diurese as much as she will tolerate. *Tachycardia- add telemetry. Add rate suppressing meds if she will tolerate. She remains very ill. We cannot safely dismiss her home at this time. Change to inpatient status. 06/28 Abdominal ultrasound this morning reveals moderate ascites. Continues on Rocephin and Azithromycin for antimicrobial coverage of CAP. Will recheck CXR in am. Bilirubin continues to trend down. Continue on Lasix and Aldactone for gentle diuresing. Unfortunately, weight continues to trend up. Continue lactulose and history of alcohol use - can decrease to daily. Case discussed with CM regarding healthcare coverage concerns 06/29/17- Discharge Nadia is seen prior to discharge. She states that she is feeling about the same , however, states that she is ready to be discharged home. We did a home oxygen evaluation and patient does require 2 liters of oxygen at rest as well as 5 liters with ambulation. Patient has been somewhat noncompliant with her oxygen during hospitalization. Do not feel hypoxia secondary to her acute pneumonia. Most likely due to hypoventilation secondary to ascites from liver disease. We will continue patient on lactulose once a day as well as continue diuretic, Lasix 40 milligrams twice a day as well as Aldactone twice a day. Encourage sodium restriction and TIAGO hose to decrease edema. She is encouraged to follow-up with PCP, Dr. Jones in 1 week for reevaluation. She will continue to utilize home health for assistance. See orders for details. Time spent with patient: discharge greater than 30 minutes Resuscitation Status: Do Not Resuscitate Discharge Plan - Discharge Disposition Discharge Date: 06/29/17 Disposition: Discharged Home, Self-Care *Condition: Stable Reason For Visit (Visit label in EMR): Liver failure, severe edema,dyspnea,CAP - Discharge Medications *Discharge Medications: Continue Thiamine HCl 100 mg PO DAILY #30 tab Folic Acid [Folate] 1 mg PO DAILY tab Lactulose Oral Liq [Lactulose] 20 gm PO DAILY PRN solution PRN Reason: Constipation Pantoprazole Tab [Protonix Tab] 40 mg PO ACB tab Spironolactone [Aldactone] 25 mg PO BID tab Sertraline [Zoloft] 50 mg PO DAILY Hydrocortisone 2.5% Cream [Anusol-Hc 2.5% Cream] 1 applicatio TOP PRN Furosemide [Lasix 40 mg Tab] 40 mg PO BID Cyanocobalamin (Vitamin B-12) [Vitamin B12] 2,500 mcg PO DAILY #30 tab guaiFENesin [Cough Syrup] 100 mg PO Q4H PRN PRN Reason: Cough Benzocaine/Menthol Lozenge [CEPACOL SORE THROAT Lozenge] 1 lozenge MM PRN PRN lozenge PRN Reason: Sore Throat Potassium Chloride [K-DUR 20 mEq Tablet] 20 meq PO BIDWM tab Loperamide [Imodium] 2 mg PO Q4H PRN PRN Reason: Loose Stools Discontinued Nitrofurantoin Macrocrystal [Nitrofurantoin] 100 mg PO BID - Discharge Packet/Instructions *Diet: Cardiac diet with 2 gm low sodium *Activity: Activity *Pain Management/Treatment: heating packs *Wound Care: none Additional Instructions: Take Lactulose daily. You need to use oxygen 2 liters at rest and 5 liters with walking *Expected Signs/Symptoms: Continued improvement in breathing *Notify Physician if: shortness of breath, chest pain, worsening abdominal pain or other concerning symptoms *During Business Hours Contact: Call Dr. Jones's office *After Business Hours Contact: Page field education director physician through [facility] rail operator *Pending Lab/Results: No Pending Lab - Referrals/Follow Up *Referrals/Follow Up: Valentina Jones MD [Family Provider] - 07/06/17 3:45 pm () - Patient Handouts Patient Handouts: Acute Liver Failure (GEN), Edema (GEN) - Dismissal Complete Discharge Instructions are:: Complete Physician Narrative - Narrative Physician: Kvng Lincoln MD Attestation Narrative: Date: 06/29/17 Time: 1435 Have independently interviewed and examined patient prior to discharge. Chart reviewed. Case discussed with CM and my STAFFING ACCOUNT MANAGER. Care plan developed with my supervision; agree with above. Doing okay. Breathing feels normal-not having increased SOA or congestion. Appetite fair. No f/c. Strength at baseline. Lungs: decreased, no crackles or wheezes. No distress. CV: regular AB: soft nt EXT: +3 BLE Plan: Will discharge to home. O2 set up for patient. Do not feel hypoxia related to pneumonia-due to hypoventilation due to acidities from her liver disease. Stress importance of sodium avoidance. Encourage TIAGO hose use to decrease edema. F/U with home health and Dr Jones. See orders for details.
== END 2017-06-29 16:23 | disposition home health service (06) | DRG 194 ==
LOC: ED 10:37 → MED 10:37 → SUATTDRO 13:21 → MED 13:32 → SUATTDRO 06-27 14:03
PROVIDERS: ADMIT Hospitalist; ATTEND Hospitalist

== ENCOUNTER 2017-06-30 16:21 | Inpatient (IN) ==
[2017-06-30] MEDS ORDERED: TETRACAINE 0.5% LEFT EYE ONE (16:39)
[2017-06-30] MEDS ORDERED: FLUORESCEIN SODIUM 1 MG STRIP LEFT EYE ONE (16:39)
[2017-06-30] MEDS ORDERED: EYE WASH LEFT EYE ONE (16:39)
--- NOTE | 2017-06-30 16:40 | Emergency Department Report ---
General Adult HPI - General Chief complaint: Shortness of Breath/Dyspnea Stated complaint: Respiratory Issues Time Seen by Provider: 06/30/17 16:36 Source: patient, EMS, RN notes reviewed Mode of arrival: EMS Limitations: no limitations - History of Present Illness HPI narrative: Patient is a 51-year-old female presents emergency department for evaluation of weakness and hypoxia. Patient alcoholic liver disease, was admitted to [facility] and discharged yesterday to home. Patient was found to be requiring supplemental O2 at [facility], so arrangements are wait for home health to deliver oxygen. EMS was called today by home health, apparently the home O2, knee attempted to call her multiple times she never picked up the telephone for the delivery. Her home health nurse went by to reestablish care found patient lying on the floor covered in feces and urine, feces all over the house of the bathroom. EMS was called, patient was found to be oxygen saturations of 80% due to not having her home O2. Patient was placed on 4 L by nasal cannula and transported to [facility]. - Related Data Home Medications Medication Instructions Recorded Confirmed guaiFENesin [Cough Syrup] 100 mg PO Q4H PRN 05/17/17 06/30/17 Furosemide [Lasix 40 mg Tab] 40 mg PO BID 06/25/17 06/30/17 Hydrocortisone 2.5% Cream 1 applicatio TOP PRN 06/25/17 06/30/17 [Anusol-Hc 2.5% Cream] Loperamide [Imodium] 2 mg PO Q4H PRN 06/25/17 06/30/17 Sertraline [Zoloft] 50 mg PO DAILY 06/25/17 06/30/17 Previous Rx's Medication Instructions Recorded Cyanocobalamin (Vitamin B-12) 2,500 mcg PO DAILY #30 tab 10/18/16 [Vitamin B12] Thiamine HCl 100 mg PO DAILY #30 tab 10/18/16 Benzocaine/Menthol Lozenge 1 lozenge MM PRN PRN lozenge 05/25/17 [CEPACOL SORE THROAT Lozenge] Folic Acid [Folate] 1 mg PO DAILY tab 05/25/17 Pantoprazole Tab [Protonix Tab] 40 mg PO ACB tab 05/25/17 Potassium Chloride [K-DUR 20 mEq 20 meq PO BIDWM tab 05/25/17 Tablet] Spironolactone [Aldactone] 25 mg PO BID tab 05/25/17 Lactulose Oral Liq [Lactulose] 20 gm PO DAILY PRN #120 solution 06/29/17 Allergies Allergy/AdvReac Type Severity Reaction Status Date / Time aspirin Allergy Unknown Rash Verified 06/30/17 16:39 Review of Systems Constitutional: Reports: weakness. Denies: fever, chills Eyes: Reports: eye pain. Denies: eye discharge, vision change ENT: Denies: ear pain, throat pain, dental pain Cardiovascular: Denies: chest pain, palpitations, dyspnea on exertion Respiratory: Denies: cough, dyspnea, wheezes Gastrointestinal: Denies: abdominal pain, nausea, vomiting Musculoskeletal: Denies: back pain [facility] Patient Stated Medical History Other HEENT Yes: JAUNDICED EYES Hypertension Yes: DOES NOT TAKE MEDS Sleep Apnea Yes Hx Urinary Tract Infection Yes Anemia Yes Osteoarthritis Yes: knees Blood Transfusions Yes Depression Yes Post Menopausal Yes: 2013 Medical History Updates: Hypertension - no home medications. Sleep apnea. History of UTI. Chronic anemia. Osteoarthritis. Depression. History of alcohol abuse. Peripheral edema. Suspected alcoholic cirrhosis. Bladder and bowel incontinence. Functional decline. Gait instability. Generalized debility. Obesity - BMI 34.6. Surgical History: Denies PSH Family History Updates: Father - diabetes, of an AR. Mother and sister's health histories are unknown. - Social History Smoking status: Never smoker second hand exposure: No Substance use type: does not use Alcohol intake: current Alcohol intake frequency: former alcohol drinker (Quit 04/2017; 3+ whiskey shots daily) Housing: apartment Household members: none Current occupational status: disabled Does patient use chewing tobacco?: No Current residence: Apartment/Private Home Physical Exam - General General appearance: alert, in no apparent distress - Eye Eye exam: Present: PERRL, EOMI, other (patient does have conjunctival swelling) - ENT ENT exam: Present: normal oropharynx, mucous membranes moist, TM's normal bilaterally - Neck Neck exam: Present: full ROM, trachea midline. Absent: tenderness - Chest Chest inspection: Present: symmetric chest wall rise. Absent: tenderness - Respiratory Respiratory exam: Present: normal lung sounds bilaterally. Absent: respiratory distress, wheezes, stridor - Cardiovascular Cardiovascular exam: Present: regular rate, normal rhythm, normal heart sounds - Abdominal Exam Abdominal exam: Present: soft. Absent: distention, tenderness - Back Exam Back exam: Present: full ROM - Skin Skin exam: Present: warm, dry - Neurological Exam Neurological exam: Present: alert, oriented X3 - Psychiatric Psychiatric exam: Present: normal affect, normal mood Course Vital Signs Temperature 97.9 F 06/30/17 16:21 Pulse Rate 86 06/30/17 16:21 Respiratory Rate 22 06/30/17 16:21 Blood Pressure 102/54 06/30/17 16:21 Pulse Oximetry 95 06/30/17 16:21 Temperature 97.8 F 06/30/17 23:51 Pulse Rate 90 06/30/17 23:51 Respiratory Rate 20 06/30/17 23:51 Blood Pressure 103/61 06/30/17 23:51 Pulse Oximetry 96 06/30/17 23:51 Medical Decision Making - MDM Narrative Medical decision making narrative: Patient's CT orbit consistent with periorbital swelling, however laboratories and physical examination are inconsistent with cellulitis. Discussed case with hospital service, Dr. Stephen, he will admit observation status for ultimate placement - Lab Data Lab results reviewed: Yes: I reviewed the patient's lab results. Result diagrams: 07/01/17 03:48 07/01/17 03:48 Lab Results 06/30/17 06/30/17 06/30/17 Range/Units 16:29 16:29 16:53 WBC 11.3 H (4.5-11.0) T/MM3 RBC 3.10 L (4.00-5.20) M/MM3 Hgb 11.2 L (12-16) GM/DL Hct 34.9 L (36-46) % MCV 112.6 H (80-100) UM3 MCH 36.1 H (26-34) UUG MCHC 32.1 (31-37) GM/DL RDW Std Deviation 49.6 (36.9-50.2) FL Plt Count 124 L (130-400) T/MM3 MPV 12.5 H (9.4-12.4) UM3 Immature Gran % (Auto) 0.4 (0.0-0.5) % Neut % (Auto) 75.1 H (33-66) % Lymph % (Auto) 16.4 L (23-45) % [place] % (Auto) 7.3 (0-9.0) % Eos % (Auto) 0.6 (0-4) % Baso % (Auto) 0.2 (0-2) % Neut # (Auto) 8.5 H (1.8-7.7) T/MM3 Lymph # (Auto) 1.9 (1-4.8) T/MM3 [place] # (Auto) 0.8 (0-0.8) T/MM3 Eos # (Auto) 0.1 (0-0.5) T/MM3 Baso # (Auto) 0.0 (0-0.2) T/MM3 Abs Immat Gran (auto) 0.05 H (0.00-0.03) T/MM3 Turbidity < 20 (0-20) Sodium 138 (134-144) MEQ/L Potassium 4.2 (3.6-5) MEQ/L Chloride 102 (98-107) MEQ/L Carbon Dioxide 25 (22-30) MEQ/L Anion Gap 11 (5-15) meq/L BUN 26.0 H (7-17) MG/DL Creatinine 1.6 H D (0.7-1.2) mg/dL GFR Calculation 34 BUN/Creatinine Ratio 16 (6-26) RATIO Glucose 101 (65-110) MG/DL Calculated Osmolality 271 (261-280) MOSM/KG Calcium 8.8 (8.4-10.2) MG/DL Total Bilirubin 4.40 H (0.20-1.30) MG/DL Icterus Index < 2 (0-7) AST 75 H (14-36) U/L ALT 17 (1-35) U/L Alkaline Phosphatase 235 H (38-126) U/L Ammonia Cancelled 17 Total Creatine Kinase 29 L (30-135) U/L Total Protein 7.0 (6.3-8.2) g/dL Albumin 2.3 L (3.5-5.0) g/dL Globulin 4.7 H (2.4-3.6) G/DL Albumin/Globulin Ratio 0.5 L (1.1-2.2) RATIO Specimen Hemolysis < 15 (0-25) Alcohol, Quantitative <10 (<10) mg/dL - Radiology Data Radiology results reviewed: Yes: I reviewed the patient's radiology results. CT orbits: Periorbital swelling on the left consistent with cellulitis Disposition Clinical Impression: Debility Disposition: 02 To OBS NM Condition: Stable Time of Disposition: 17:45 - Seen By: physician
[2017-06-30] MEDS ORDERED: SALINE FLUSH 10ml SYRINGE IVF PRN (17:07)
--- NOTE | 2017-06-30 18:33 | History & Physical Report ---
History of Present Illness Date: 06/30/17 Chief complaint: Fall, weakness HPI: Patient is a 52 y/o female with ETOH liver disease who presents to [facility] via EMS secondary to hypoxia and weakness. Was hospitalized at [facility] from 06/25/17 until 06/29/17 secondary to declining functional status, morbid thought, and suspected pneumonia. Was discharge to home yesterday-reluctant to go to skilled to try to increase her strength. Home health continued. Patient did qualify for O2 at discharge, but oxygen supplies not delivered (report I received was she would not answer her phone to make when called by supply [employer]). Home health found patient on floor. Oxygen sats decreased. EMS activated and found sats 70- 80 on RA, improved with 4L O2. Report that her was urine and feces throughout house. Patient really has no recollection of what happened to her once she was home. Does note her left eye is hurting. Eye red and injected. No recollection of any injury. Feels slight SOA and cough. No nausea or ab pain. Does feel weak in general. Lab obtained-similar to yesterday. Ammonia without elevation. CPK normal. Serum ETOH undetectable. With patient's declining functional status at home, she was placed in outpatient observation to try to make better care arrangements for her. Review of Systems All systems PM: 10-point ROS was reviewed, no additional remarkable complaints except - Constitutional Constitutional: Present: fatigue - EENMT Eyes: Present: pain (Left eye) - Respiratory Respiratory: Present: cough (No sputum) - Gastrointestinal Gastrointestinal: Present: nausea - Genitourinary Genitourinary: Present: urinary frequency, urinary incontinence - Neurological Neurological: Absent: focal weakness - Psychiatric Psychiatric: Present: depression (Secondary to declining health and functional abilities) - Allergic/Immunologic Allergic/Immunologic: Present: itchy eyes Past Medical History Medical History Updates: Hypertension - no home medications. Sleep apnea. History of UTI. Chronic anemia. Osteoarthritis. Depression. History of alcohol abuse. Peripheral edema. Suspected alcoholic cirrhosis. Bladder and bowel incontinence. Functional decline. Gait instability. Generalized debility. Obesity - BMI 34.6. Surgical History: Denies PSH Family History: Father - diabetes, of an NM. Mother and sister's health histories are unknown. Family History: As Above - Social History Smoking status: Never smoker Alcohol intake: former (Quit 05/09) Housing: apartment Household members: none Current occupational status: disabled Does patient use chewing tobacco?: No Current residence: Apartment/Private Home Social history: Dr Stockton PCP Medications Home Medications Medication Instructions Recorded Confirmed Type Cyanocobalamin (Vitamin B-12) 2,500 mcg PO DAILY #30 tab 10/18/16 06/30/17 Rx [Vitamin B12] Thiamine HCl 100 mg PO DAILY #30 tab 10/18/16 06/30/17 Rx guaiFENesin [Cough Syrup] 100 mg PO Q4H PRN 05/17/17 06/30/17 History Benzocaine/Menthol Lozenge 1 lozenge MM PRN PRN lozenge 05/25/17 06/30/17 Rx [CEPACOL SORE THROAT Lozenge] Folic Acid [Folate] 1 mg PO DAILY tab 05/25/17 06/30/17 Rx Pantoprazole Tab [Protonix Tab] 40 mg PO ACB tab 05/25/17 06/30/17 Rx Potassium Chloride [K-DUR 20 mEq 20 meq PO BIDWM tab 05/25/17 06/30/17 Rx Tablet] Spironolactone [Aldactone] 25 mg PO BID tab 05/25/17 06/30/17 Rx Furosemide [Lasix 40 mg Tab] 40 mg PO BID 06/25/17 06/30/17 History Hydrocortisone 2.5% Cream 1 applicatio TOP PRN 06/25/17 06/30/17 History [Anusol-Hc 2.5% Cream] Loperamide [Imodium] 2 mg PO Q4H PRN 06/25/17 06/30/17 History Sertraline [Zoloft] 50 mg PO DAILY 06/25/17 06/30/17 History Lactulose Oral Liq [Lactulose] 20 gm PO DAILY PRN #120 solution 06/29/17 Rx Allergies Allergy/AdvReac Type Severity Reaction Status Date / Time aspirin Allergy Unknown Rash Verified 06/30/17 16:39 Exam Vital Signs: Temperature 97.9 F 06/30/17 16:21 Pulse Rate 84 06/30/17 16:36 Respiratory Rate 22 06/30/17 16:21 Blood Pressure 102/54 06/30/17 16:21 Pulse Oximetry 94 06/30/17 16:36 - Constitutional Present: well nourished, well developed, obese - Routine HEENT Exam Eye: Present: EOMI, PERRL, conjunctival icterus, conjunctivae pink (Left eye) ENT: Present: mucous membranes moist - Routine Neck Exam Present: supple, full ROM - Routine Respiratory Exam Present: decreased breath sounds. Absent: rales, respiratory distress, rhonchi , stridor, wheezes, crackles - Routine Cardiovascular Exam Present: RRR, no murmur - Routine Abdominal Exam Present: soft, normoactive bowel sounds, non tender, distended (Ascities). Absent: guarding - Routine Extremities Exam Present: edema (+4 BLE), pulses intact. Absent: cyanosis, clubbing - Routine Skin Exam Present: dry, warm - Routine Neurological Exam Present: alert, CN II-XII intact, moving all extremities, vision grossly intact , hearing grossly intact, normal speech. Absent: motor deficit - Routine Psychiatric Exam Present: cooperative. Absent: agitated, paranoid, manic Results - Labs CBC & Chem 7: 06/30/17 16:29 06/30/17 16:29 Assessment and Plan Assessment and Plan: Assessment Fall Significant functional decline Self care failure Erythematous left eye ETOH liver disease Edema/ascites secondary to ETOH liver disease Thrombocytopenia, chronic. Hypertension Chronic hypoxia secondary to hypoventilation due to body habitus Sleep apnea Chronic anemia Osteoarthritis Depression History of alcohol abuse Bladder and bowel incontinence Gait instability Obesity Plan Will place patient in OBS at [facility] for supportive care and investigation of better living arrangements. CM consult to help with discharge disposition. SCD/TIAGO hose to help with peripheral edema. Continue home medications, holding this evening's dose of diuretics as creatinine with slight elevation. Zofran prn nausea. Refresh eye drops due to scleral irritation. Continue with supplemental oxygen. Monitor lab. DNR as per her requests. Care to return to Dr Jones at time of discharge from [facility]. DVT Prophylaxis: SCD's Resuscitation Status: Do Not Resuscitate - Physician Narrative Physician: Kvng Lincoln MD Narrative: Date: 06/30/17 Time: 1822 Hospital Course Summary Disclaimer: The visit summary below is not to be considered part of the above Progress Note. Hospital Course: 06/30/[address] patient in OBS at [facility] for supportive care and investigation of better living arrangements. CM consult to help with discharge disposition. SCD/TIAGO hose to help with peripheral edema. Continue home medications, holding this evening's dose of diuretics as creatinine with slight elevation. Zofran prn nausea. Refresh eye drops due to scleral irritation. Continue with supplemental oxygen. Monitor lab. DNR as per her requests. Care to return to Dr Jones at time of discharge from [facility].
[2017-06-30] MEDS ORDERED: GUAIFENESIN 200mg/10ml ORAL LIQUID PO PRN (19:19)
[2017-06-30] MEDS ORDERED: LACTULOSE 20 GM/30 ML ORAL LIQUID PO PRN (19:19)
[2017-06-30] MEDS ORDERED: ONDANSETRON 4 MG/2 ML INJECTION IVP PRN (19:19)
[2017-06-30] MEDS ORDERED: FALL RISK - PHARMACY CONSULT MC ONE (19:48)
[2017-06-30] MEDS: REFRESH CLASSIC Eye Drops 0.4ml LEFT EYE SCH ×2 (20:08→21:18)
[2017-07-01] MEDS: SERTRALINE 50 MG TABLET PO SCH (09:31)
[2017-07-01] MEDS: REFRESH CLASSIC Eye Drops 0.4ml LEFT EYE SCH ×4 (09:31→22:13)
[2017-07-01] MEDS: FUROSEMIDE 40 MG TABLET PO SCH ×2 (09:32→16:27)
[2017-07-01] MEDS: SPIRONOLACTONE 25 MG TABLET PO SCH ×2 (09:32→16:27)
--- NOTE | 2017-07-01 09:34 | CT Scan Report ---
Indication: left orbit swelling PROCEDURE: CT orbit BI wo con: Encounter: Initial Comparison: None. Automated Exposure Control and Iterative Reconstruction dose reducing techniques were utilized. INDICATION: Status post fall with trauma to the face with laceration and bruising over the left eye. FINDINGS: There is moderate soft tissue swelling surrounding the left globe . There is no definite displaced fracture. Included portions of the paranasal and mastoid sinuses are clear. No definite mandibular fracture. There is moderate deviation of the mid nasal septum to the right IMPRESSION: Moderate soft tissue swelling around the right orbit, suggesting cellulitis, without bony destructive process or significant sinus opacification to suggest fracture or sinusitis. .
[2017-07-01 09:39] VITALS: BMI 35.2
--- NOTE | 2017-07-01 16:12 | Progress Note ---
- Date 07/01/17 Subjective: Nadia is depressed, tearful. Her nurse reported that she is withdrawn, and doesn 't want any company today from staff. She began to cry when she talked about going to a usp. She doesn't feel like eating anything because she worries about where she will have to go. She denies SOA, chest pain, abdominal pain, n/v. She states that after her nurse put some drops in her left eye it feels better. She also stated that her legs are numb -- she recalls trying to get to the door last night, but her legs wouldn't work, yet she saw EMS at her residence -- she can't understand how EMS came in b/c her door was locked. Objective Vital signs: Temperature 98.0 F 07/01/17 11:26 Pulse Rate 86 07/01/17 11:26 Respiratory Rate 16 07/01/17 11:26 Blood Pressure 92/59 07/01/17 11:26 Pulse Oximetry 94 07/01/17 11:26 Height/Weight/BMI: Height 1.68 m Weight 99 kg Body Mass Index 35.2 - Constitutional Present: mild distress, well nourished, well developed, obese - Routine HEENT Exam Head: Present: normocephalic Eye: Present: PERRL, scleral injection (left eye) ENT: Present: mucous membranes moist - Routine Respiratory Exam Present: CTA bilaterally - Routine Cardiovascular Exam Present: RRR, S1, S2 - Routine Abdominal Exam Present: soft, normoactive bowel sounds, non tender, distended (ascites) - Routine Extremities Exam Present: edema (4+ BLE) - Routine Skin Exam Present: intact, dry, warm - Routine Neurological Exam Present: alert, vision grossly intact, hearing grossly intact, normal speech - Routine Psychiatric Exam Absent: normal affect (tearful and depressed) Results - Labs CBC & Chem 7: 07/01/17 03:48 07/01/17 03:48 Assessment and Plan Assessment and Plan: Assessment Fall Significant functional decline Self care failure Erythematous left eye ETOH liver disease Edema/ascites secondary to ETOH liver disease Thrombocytopenia, chronic. Hypertension Chronic hypoxia secondary to hypoventilation due to body habitus Sleep apnea Chronic anemia Osteoarthritis Depression History of alcohol abuse Bladder and bowel incontinence Gait instability Obesity Plan Patient is depressed about her situation. Some confusion about timeline of events noted, but per H&P she had poor recollection about her short time at home. She agrees to IRU screen. Labs show resolution of leukocytosis. Hgb decreased from 11.2. to 9.6. Renal function slightly worse with cr increasing from 1.6 to 1.7. Total bili decreased from 4.4 to 3.3. Recheck BMP in am. D/W RN and SW. DVT Prophylaxis: SCD's Resuscitation Status: Do Not Resuscitate - Physician Narrative Physician: Kvng Lincoln MD Narrative: Date: 07/01/17 Time: 1904 Have independently interviewed and examined pt. Chart reviewed. Case discussed with CM, nursing, and my MULTI SKILLED OPERATOR. Care plan developed with my supervision; agree with above. Doing fair. Reports not up much. Nursing reports repositioning pt every 2 hours (not moving much in bed on her own). Feels tired and weak. Breathing stable. Appetite fair. Lungs: decreased, no distress CV: regular EXT: +4 edema bilaterally Plan: PT/OT to help functional status. Concern about patients significant decline and not able to maintain well at home independently. CM checking into various care options. Monitor lab. Hospital Course Summary Disclaimer: The visit summary below is not to be considered part of the above Progress Note. Hospital Course: 06/30/[address] patient in OBS at [facility] for supportive care and investigation of better living arrangements. CM consult to help with discharge disposition. SCD/TIAGO dykese to help with peripheral edema. Continue home medications, holding this evening's dose of diuretics as creatinine with slight elevation. Zofran prn nausea. Refresh eye drops due to scleral irritation. Continue with supplemental oxygen. DNR as per her requests. Care to return to Dr Jones at time of discharge from [facility]. 07/01/17 Patient is depressed about her situation. Some confusion about timeline of events noted, but per H&P she had poor recollection about her short time at home. She agrees to IRU screen. Labs show resolution of leukocytosis. Hgb decreased from 11.2. to 9.6. Renal function slightly worse with cr increasing from 1.6 to 1.7. Total bili decreased from 4.4 to 3.3. Recheck BMP in am.
[2017-07-01] MEDS: BENZOCAINE/MENTHOL SORE THROAT LOZENGE MM PRN (16:27)
[2017-07-01] MEDS: CALMOSEPTINE OINTMENT 113gm TUBE TP SCH (21:15)
[2017-07-01] MEDS: ACETAMINOPHEN 325 MG TABLET PO PRN (22:12)
--- NOTE | 2017-07-02 10:03 | Progress Note ---
- Date 07/02/17 Subjective: Nadia is anxious and worried about discharge plans. She perseverates on this and has difficulty answering other questions. She has had 3 episodes of diarrhea since 06/30, and now her bottom is sore. She thinks her diarrhea is from feeling nervous. She doesn't have much of an appetite but is not vomiting. She denies SOA or chest pain. Objective Vital signs: Temperature 97.5 F 07/02/17 07:53 Pulse Rate 89 07/02/17 07:53 Respiratory Rate 14 07/02/17 07:53 Blood Pressure 87/53 07/02/17 07:53 Pulse Oximetry 93 07/02/17 07:53 Height/Weight/BMI: Height 1.68 m Weight 99.6 kg Body Mass Index 35.2 - Constitutional Present: mild distress - Routine HEENT Exam Eye: Present: PERRL, conjunctival icterus (improving to left eye) - Routine Respiratory Exam Present: CTA bilaterally - Routine Cardiovascular Exam Present: RRR, S1, S2 - Routine Abdominal Exam Present: soft, normoactive bowel sounds, non tender, distended (ascites) - Routine Extremities Exam Present: edema (4+ BLE) - Routine Skin Exam Present: dry, warm - Routine Neurological Exam Present: alert, oriented X3, normal speech - Routine Psychiatric Exam Present: cooperative. Absent: normal affect (anxious) Results - Labs CBC & Chem 7: 07/02/17 04:46 07/02/17 04:46 Assessment and Plan Assessment and Plan: Assessment KATH (07/02/17) - Cr 2.2, baseline 0.6 Hypotension Fall Significant functional decline Self care failure Erythematous left eye - improving ETOH liver disease Edema/ascites secondary to ETOH liver disease Thrombocytopenia, chronic. Hypertension Chronic hypoxia secondary to hypoventilation due to body habitus Sleep apnea Chronic anemia Osteoarthritis Depression History of alcohol abuse Bladder and bowel incontinence Gait instability Obesity Plan Patient with increasing creatinine, up to 2.2 and her baseline has been about 0.6. Poor oral intake and increasing volume loss through occasional diarrhea. GI panel was neg. BP has been persistently low, 87/53 this am. Will give NS 500 mL bolus then start NS at 125 mL/hr and hold Lasix. Change status to inpatient based on KATH - anticipate that it will take more than 2 days for creatinine to improve. Repeat UA; last one was done on 06/25. I contacted the wound clinic - RN will come assess pt today. Her floor RN reports that there is significant perianal erythema, excoriation, and bleeding. CBC, CMP, mg, and phos in am. She was seen by Dr. Domínguez for morbid ideology on 06/26/17. She seems more depressed this hospitalization than prior. Consider consulting psych again for recommendations. Discussed with Dr. Lincoln, RN, and wound RN. DVT Prophylaxis: SCD's Resuscitation Status: Do Not Resuscitate - Physician Narrative Physician: Kianna Armas MD Narrative: Date: 07/02/17 Time: 2029 I have independently evaluated and examined this patient. I reviewed the chart, the patient's history, and the FUEL STORAGE TECHNICIAN/PA's documented findings as above. We discussed and formulated the assessment and plan as above with additions as below: Mrs. Isbell did not mention diarrhea spontaneously but instead complained of pain in her left buttock; she did not recall falling. When asked about diarrhea she thinks it's better and also reports having some rectal bleeding. Patient complains pain in her buttock worsens with ambulation (PT reports she refused to ambulate) and with movement. Moderate soft tissue swelling on palpation over lateral left hip and left hemipelvis Regular cardiac rhythm, abdomen soft Generalized confusion Creatinine increasing and well above baseline; urine output unclear; borderline blood pressure. Patterson catheter to be placed so urine output can be quantified. Albumin initiated earlier today to enhance urine output due to hypoalbuminemia. If persistent complaints of localized pain may require further imaging of the pelvis. Hospital Course Summary Disclaimer: The visit summary below is not to be considered part of the above Progress Note. Hospital Course: 06/30/[address] patient in [place] [facility] [place] supportive [place] and investigation of better living arrangements. CM consult to help with discharge disposition. SCD/TIAGO hose to help with peripheral edema. Continue home medications, holding this evening's dose of diuretics as creatinine with slight elevation. Zofran prn nausea. Refresh eye drops due to scleral irritation. Continue with supplemental oxygen. DNR as per her requests. Care to return to Dr Jones at time of discharge from [facility]. 07/01/17 Patient is depressed about her situation. Some confusion about timeline of events noted, but per H&P she had poor recollection about her short time at home. She agrees to IRU screen. Labs show resolution of leukocytosis. Hgb decreased from 11.2. to 9.6. Renal function slightly worse with cr increasing from 1.6 to 1.7. Total bili decreased from 4.4 to 3.3. 07/02/17 Patient with increasing creatinine, up to 2.2 and her baseline has been about 0.6. Poor oral intake and increasing volume loss through occasional diarrhea. GI panel was neg. BP has been persistently low, 87/53 this am. Will give NS 500 mL bolus then start NS at 125 mL/hr and hold Lasix. Change status to inpatient based on KATH - anticipate that it will take more than 2 days for creatinine to improve. Repeat UA; last one was done on 06/25. I contacted the wound clinic - RN will come assess pt today. Her floor RN reports that there is significant perianal erythema, excoriation, and bleeding. She was seen by Dr. Domínguez for morbid ideology on 06/26/17. She seems more depressed this hospitalization than prior. Consider consulting psych again for recommendations.
[2017-07-02] MEDS: ACETAMINOPHEN 325 MG TABLET PO PRN ×2 (11:12→22:28)
[2017-07-02] MEDS: SPIRONOLACTONE 25 MG TABLET PO SCH ×2 (11:12→18:19)
[2017-07-02] MEDS: FUROSEMIDE 40 MG TABLET PO SCH (11:14)
[2017-07-02] MEDS: REFRESH CLASSIC Eye Drops 0.4ml LEFT EYE SCH ×4 (11:14→22:29)
[2017-07-02] MEDS: CALMOSEPTINE OINTMENT 113gm TUBE TP SCH ×3 (11:17→22:30)
[2017-07-02] MEDS: NS 1,000 ML IV SCH ×2 (12:20→18:18)
--- NOTE | 2017-07-02 13:18 | Wound Care Progress Note ---
Wound Center Progress Note: In to see pt this AM and assess skin. Pt has severe excoriation to bottom, perineal area. At this time cleaned area throughly and applied 3M Advanced Skin Protectant. Instructed staff and pt to keep brief off when able and keep pt rolled to her side and bottom uncovered so air could get to that area.
[2017-07-02] MEDS: SERTRALINE 50 MG TABLET PO SCH (13:30)
[2017-07-02] MEDS: ALBUMIN HUMAN IV SCH ×3 (13:34→22:27)
[2017-07-02] MEDS: CONTAINER EMPTY IV SCH ×3 (13:34→22:27)
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
--- NOTE | 2017-07-02 16:34 | Progress Note ---
Progress Note: Psychiatry consulted due to concern for depression and seen on 07/02. Will complete full consult note later this evening. Patient allowed me to contact friend and sister for collateral. She reportedly had cognitive testing done at [facility]; please request records from them. I have concern for continued alcohol use given long history of alcoholism and elevated AST, but friend reported underlying paranoia/delusions years ago. She also reported more recent symptoms that could be consistent with executive dysfunction. Patient seemed significantly more confused than last time she was seen by psychiatry, prompting concern for delirium (alcohol withdrawal vs. other causes) and possible underlying neurocognitive disorder. Appears to have very poor hygiene. May be appropriate for [facility] once medically stable but will continue to follow. Have not yet been able to reach sister. Asked hospitalist to order GGT to better understand recent EtOH use. Recommend that patient not be allowed to leave AMA; please contact psych if she tries to do so.
[2017-07-03] MEDS: NS 1,000 ML IV SCH ×2 (02:25→11:02)
[2017-07-03] MEDS: ALBUMIN HUMAN IV SCH (05:48)
[2017-07-03] MEDS: CONTAINER EMPTY IV SCH (05:48)
[2017-07-03] MEDS: ACETAMINOPHEN 325 MG TABLET PO PRN (06:42)
[2017-07-03] MEDS: REFRESH CLASSIC Eye Drops 0.4ml LEFT EYE SCH ×4 (09:36→21:18)
[2017-07-03] MEDS: CALMOSEPTINE OINTMENT 113gm TUBE TP SCH ×3 (09:36→21:18)
[2017-07-03] MEDS: SERTRALINE 50 MG TABLET PO SCH (09:37)
[2017-07-03] MEDS: BENZOCAINE/MENTHOL SORE THROAT LOZENGE MM PRN (09:37)
[2017-07-03] MEDS: SPIRONOLACTONE 25 MG TABLET PO SCH (09:37)
--- NOTE | 2017-07-03 10:33 | Progress Note ---
- Date 07/03/17 Subjective: Patient is seen this morning resting in bed. She complains of her catheter. She feels like she needs to void and thinks if the catheter wasn't in, she would be able to. She feels her swelling is increasing. She had pain and pounding in her chest last evening when she was on her side while she was being "cleaned up." She has no pain anywhere at the present time but states that if she has to be moved, she'll have significant pain. She feels more short of breath. States she just wants to . She denies any hallucinations or confusion. She is able to accurately state the month, year and that we are [place] [facility] Is aware her B-day is in 2 days. Her complaint of left sided hip/pelvis pain has resolved. Objective Vital signs: Temperature 96.9 F 07/03/17 08:00 Pulse Rate 83 07/03/17 08:00 Respiratory Rate 18 07/03/17 08:00 Blood Pressure 92/49 07/03/17 08:00 Pulse Oximetry 95 07/03/17 08:00 Height/Weight/BMI: Weight 101.8 kg - Constitutional Present: no acute distress, well nourished, well developed, obese - Routine HEENT Exam Head: Present: normocephalic, atraumatic - Routine Respiratory Exam Present: decreased breath sounds. Absent: wheezes Comments: auscultated anteriorly only - questionable crackles mid lung heck. Upper clear, but diminished. - Routine Cardiovascular Exam Present: RRR, no murmur - Routine Abdominal Exam Present: tenderness (diffuse), firm - Routine Extremities Exam Present: normal capillary refill Comments: anasarca abdomen to feet - Routine Skin Exam Present: dry, warm - Routine Neurological Exam Present: alert, oriented X3 - Routine Lymphatic Exam Lymphatic: Absent: adenopathy - Routine Psychiatric Exam Present: cooperative, depressed Results - Labs CBC & Chem 7: 07/03/17 04:32 07/03/17 04:32 Assessment and Plan Assessment and Plan: Assessment KATH (07/02/17) - Cr 2.2, baseline 0.6 Hypoalbuminemia Hypotension Fall Significant functional decline Self care failure Erythematous left eye - improving ETOH liver disease Edema/ascites secondary to ETOH liver disease Thrombocytopenia, chronic. Hypertension Chronic hypoxia secondary to hypoventilation due to body habitus Sleep apnea Chronic anemia Osteoarthritis Depression History of alcohol abuse Bladder and bowel incontinence Gait instability Obesity Plan Creatinine remains at 2.2 (w/ baseline of 0.6) with only 200cc's urine output overnight. Lasix put on hold yesterday. NS bolus 500cc's yesterday has been running at 125cc's/hr - will decrease to 75cc's/hr. Patterson placed last night with minimal to no urine return and bladder scan of > 900. Sono this am showed ascites in the abd/pelvis and bladder was not visualized (likely collapsed) consistent with oliguria. Continues to have significant anasarca. Encouraged pt to use SCD's and to work with PT to increase mobilization. Albumin infusion completed yesterday. GGT is pending. Cognition seems improved this am. Further plan of care per attending. Resuscitation Status: Do Not Resuscitate - Time spent with patient Time with patient PN: 25 minutes - Physician Narrative Physician: Kvng Lincoln MD Narrative: Date: 07/03/17 Time: 1400 Have independently interviewed and examined pt. Chart reviewed. Case discussed with my PA. Care plan developed with my supervision; agree with above. Feels tired and weak. Sleeping soundly when I came in, but readily awakened. Notes SOA. Still very edematous to legs and ab. Appetite decreased. Lungs: decreased CV: regular AB: soft obese NT BS decreased EXT: +4 edema to BLE. Plan: Decrease IVF to 75cc/hr. Will hold spironolactone. IV Protonix for GI protection. Monitor lab. Prognosis worrisome. Hospital Course Summary Disclaimer: The visit summary below is not to be considered part of the above Progress Note. Hospital Course: 06/30/[address] patient in [place] [facility] [place] and investigation of better living arrangements. CM consult to help with discharge disposition. SCD/TIAGO hose to help with peripheral edema. Continue home medications, holding this evening's dose of diuretics as creatinine with slight elevation. Zofran prn nausea. Refresh eye drops due to scleral irritation. Continue with supplemental oxygen. DNR as per her requests. Care to return to Dr Jones at time of discharge from [facility]. 07/01/17 Patient is depressed about her situation. Some confusion about timeline of events noted, but per H&P she had poor recollection about her short time at home. She agrees to IRU screen. Labs show resolution of leukocytosis. Hgb decreased from 11.2. to 9.6. Renal function slightly worse with cr increasing from 1.6 to 1.7. Total bili decreased from 4.4 to 3.3. 07/02/17 Patient with increasing creatinine, up to 2.2 and her baseline has been about 0.6. Poor oral intake and increasing volume loss through occasional diarrhea. GI panel was neg. BP has been persistently low, 87/53 this am. Will give NS 500 mL bolus then start NS at 125 mL/hr and hold Lasix. Change status to inpatient based on KATH - anticipate that it will take more than 2 days for creatinine to improve. Repeat UA; last one was done on 06/25. I contacted the wound clinic - RN will come assess pt today. Her floor RN reports that there is significant perianal erythema, excoriation, and bleeding. Seen by psych. Per Dr. Thornton "Recommend that patient not be allowed to leave AMA; please contact psych if she tries to do so." GGT ordered at request of Dr. Thornton to better understand recent EtOH use. 07/03/17 Creatinine remains at 2.2 (w/ baseline of 0.6) with only 200cc's urine output overnight. Lasix put on hold yesterday. NS bolus 500cc's yesterday has been running at 125cc's/hr - will decrease to 75cc's/hr. Hold spironolactone. Patterson placed last night with minimal to no urine return and bladder scan of > 900. Sono this am showed ascites in the abd/pelvis and bladder was not visualized (likely collapsed) consistent with oliguria. Continues to have significant anasarca. Encouraged pt to use SCD's and to work with PT to increase mobilization. Albumin infusion completed yesterday. GGT is pending. Cognition seems improved this am.
[2017-07-03] MEDS: PANTOPRAZOLE 40 MG INJECTION IVP SCH (14:29)
[2017-07-04] MEDS: NS 1,000 ML IV SCH ×4 (01:15→18:23)
[2017-07-04] MEDS ORDERED: CYANOCOBALAMIN (B-12) 500mcg TABLET PO SCH (09:00)
--- NOTE | 2017-07-04 09:22 | Ultrasound Report ---
Indication: confirm krause placement PROCEDURE: US bladder: Encounter: Initial Comparison: None Technique/findings/ Impression: Grayscale sonographic imaging of the pelvis shows ascites but does not visualize the bladder or a Krause catheter. There is a preliminary report by [facility]. .
[2017-07-04] MEDS: SERTRALINE 50 MG TABLET PO SCH (10:33)
[2017-07-04] MEDS: CALMOSEPTINE OINTMENT 113gm TUBE TP SCH ×3 (10:33→21:17)
[2017-07-04] MEDS: PANTOPRAZOLE 40 MG INJECTION IVP SCH (10:34)
[2017-07-04] MEDS ORDERED: PROCHLORPERAZINE 10 MG/2 ML INJECTION IVP PRN (11:14)
--- NOTE | 2017-07-04 11:22 | Progress Note ---
- Date 07/04/17 Subjective: Nadia is seen today in follow up. She is alert, currently undergoing care. She is anxious, moaning. D/W RN- pt. has a very large area of bright red breakdown, some oozing. She has been reluctant to turn or allow care. Patient is depressed , alert, but poor insight into her condition. Chart is reviewed for collateral information. Objective Vital signs: Temperature 98.5 F 07/04/17 07:39 Pulse Rate 90 07/04/17 07:39 Respiratory Rate 18 07/04/17 07:39 Blood Pressure 98/59 07/04/17 07:39 Pulse Oximetry 94 07/04/17 07:39 Height/Weight/BMI: Weight 101.6 kg - Constitutional Present: moderate distress, obese, disheveled. Absent: cooperative - Routine HEENT Exam Eye: Present: EOMI, PERRL ENT: Present: mucous membranes dry - Routine Respiratory Exam Present: dyspnea, decreased breath sounds, crackles (bases), diminished air movement - Routine Cardiovascular Exam Present: RRR, S1, S2, no murmur - Routine Abdominal Exam Present: soft, non tender, distended. Absent: normoactive bowel sounds - Routine Extremities Exam Present: edema (trace, mild), pallor - Routine Back/Spine/Pelvis Exam Pelvis: Present: buttock tenderness (Marked reddened rash with denuded skin. Odor and appearance c/w fungal infection. ) - Routine Musculoskeletal Exam Musculoskeletal: Present: limited range of motion. Absent: normal strength - Routine Skin Exam Present: dry, pallor, warm, rash - Routine Neurological Exam Present: alert, moving all extremities. Absent: oriented X3 - Routine Psychiatric Exam Present: anxious. Absent: normal affect, cooperative, good insight, good judgment Results - Labs CBC & Chem 7: 07/04/17 04:11 07/04/17 04:11 Assessment and Plan (1) Alcohol use disorder Current visit: Yes Status: Acute Assessment and Plan: Assessment KATH (07/02/17) - Cr 2.2, baseline 0.6 Hypoalbuminemia Hypotension Fall Significant functional decline Self care failure Erythematous left eye - improving ETOH liver disease Edema/ascites secondary to ETOH liver disease Thrombocytopenia, chronic. Hypertension Chronic hypoxia secondary to hypoventilation due to body habitus Sleep apnea Chronic anemia Osteoarthritis Depression History of alcohol abuse Bladder and bowel incontinence Gait instability Obesity Skin breakdown c/w fungal infection Plan 07/04/17 Patient remains depressed, anxious. Paranoia is an ongoing concern. Appreciate psych assistance- pt may not leave AMA. Continue Zoloft for now. Will obtain a CT of the head given persistent confusion. KATH ongoing- continue gentle IVF. Holding diuretics. Significant anasarca ongoing, but mild LE edema noted on exam. Possible hepatorenal scan. B12 level was elevated last stay- will DC PO supplement. Elevated Ferritin- consider GI consult to R/O hemochromatosis given ongoing liver concerns. She may need liver bx in future. Significant fungal skin/soft tissue changes. Add nystatin ointment to skin care. Add low dose diflucan x days to help clear faster- monitor mental status with this. Hold Zofran when giving diflucan. Repeat labs in AM. She remains ill, ongoing failure for self care. Will likely need placement. DVT Prophylaxis: SCD's GI Prophylaxis: Protonix Resuscitation Status: Do Not Resuscitate - Time spent with patient Time with patient PN: 25 minutes - Physician Narrative Physician: Kvng Lincoln MD Narrative: Date: 07/04/17 Time: 1210 Have independently interviewed and examined pt. Chart reviewed. Case discussed with my TOWER DIRECTOR. Care plan developed with my supervision; agree with above. Feeling about the same-weak/tired. Taxing effort to move. Appetite decreased- nausea at times. Breathing fair-not liking the O2, but wearing. Is wearing SCD. Does feel [place] care is in her best interest at discharge. Lungs: decreased, no distress CV: regular AB: soft ascitics, BS decreased EXT : +4 BLE, scd in place. MSE: awake alert Plan: Will continue with low flow IVF. Trial of albumen 25grams IV x1 with 0.5mg Bumex IV afterwards to see if this help increase urine output. Encouraged patient on continued use of SCD to help decrease edema and risk for DVT. CM working on discharge disposition-not clinically ready for discharge at this time. Hospital Course Summary Disclaimer: The visit summary below is not to be considered part of the above Progress Note. Hospital Course: 06/30/[address] patient in [place] [facility] [place] and investigation of better living arrangements. CM consult to help with discharge disposition. SCD/TIAGO hose to help with peripheral edema. Continue home medications, holding this evening's dose of diuretics as creatinine with slight elevation. Zofran prn nausea. Refresh eye drops due to scleral irritation. Continue with supplemental oxygen. DNR as per her requests. Care to return to Dr Jones at time of discharge from [facility]. 07/01/17 Patient is depressed about her situation. Some confusion about timeline of events noted, but per H&P she had poor recollection about her short time at home. She agrees to IRU screen. Labs show resolution of leukocytosis. Hgb decreased from 11.2. to 9.6. Renal function slightly worse with cr increasing from 1.6 to 1.7. Total bili decreased from 4.4 to 3.3. 07/02/17 Patient with increasing creatinine, up to 2.2 and her baseline has been about 0.6. Poor oral intake and increasing volume loss through occasional diarrhea. GI panel was neg. BP has been persistently low, 87/53 this am. Will give NS 500 mL bolus then start NS at 125 mL/hr and hold Lasix. Change status to inpatient based on KATH - anticipate that it will take more than 2 days for creatinine to improve. Repeat UA; last one was done on 06/25. I contacted the wound clinic - RN will come assess pt today. Her floor RN reports that there is significant perianal erythema, excoriation, and bleeding. Seen by psych. Per Dr. Thornton "Recommend that patient not be allowed to leave AMA; please contact psych if she tries to do so." GGT ordered at request of Dr. Thornton to better understand recent EtOH use. 07/03/17 Creatinine remains at 2.2 (w/ baseline of 0.6) with only 200cc's urine output overnight. Lasix put on hold yesterday. NS bolus 500cc's yesterday has been running at 125cc's/hr - will decrease to 75cc's/hr. Hold spironolactone. Patterson placed last night with minimal to no urine return and bladder scan of > 900. Sono this am showed ascites in the abd/pelvis and bladder was not visualized (likely collapsed) consistent with oliguria. Continues to have significant anasarca. Encouraged pt to use SCD's and to work with PT to increase mobilization. Albumin infusion completed yesterday. GGT is pending. Cognition seems improved this am. 07/04/17 Patient remains depressed, anxious. Paranoia is an ongoing concern. Appreciate psych assistance- pt may not leave AMA. Continue Zoloft for now. Will obtain a CT of the head given persistent confusion. KATH ongoing- continue gentle IVF. Holding diuretics. Significant anasarca ongoing, but mild LE edema noted on exam. Possible hepatorenal scan. B12 level was elevated last stay- will DC PO supplement. Elevated Ferritin- consider GI consult to R/O hemochromatosis given ongoing liver concerns. She may need liver bx in future. Significant fungal skin/soft tissue changes. Add nystatin ointment to skin care. Add low dose diflucan x days to help clear faster- monitor mental status with this. Hold Zofran when giving diflucan. Repeat labs in AM. She remains ill, ongoing failure for self care. Will likely need placement .
[2017-07-04] MEDS: REFRESH CLASSIC Eye Drops 0.4ml LEFT EYE SCH ×4 (11:59→21:18)
[2017-07-04] MEDS: FOLIC ACID 1 MG TABLET PO SCH (11:59)
[2017-07-04] MEDS ORDERED: CONTAINER EMPTY IV ONE (13:00)
[2017-07-04] MEDS ORDERED: ALBUMIN HUMAN IV ONE (13:00)
[2017-07-04] MEDS: FLUCONAZOLE PB 100 MG/50 ML BAG IV SCH (13:15)
[2017-07-04] MEDS: NYSTATIN OINTMENT 15gm TP SCH ×2 (14:27→21:18)
[2017-07-04] MEDS ORDERED: PHYTONADIONE 5 MG/2.5 ML ORAL LIQUID PO ONE (17:00)
[2017-07-04] MEDS: MORPHINE SULFATE 2mg INJ IVP PRN (22:43)
[2017-07-05] MEDS: MORPHINE SULFATE 2mg INJ IVP PRN (06:55)
[2017-07-05 07:30] VITALS: RESP 22; TEMP 96.9; O2SAT 97
[2017-07-05] MEDS: PANTOPRAZOLE 40 MG INJECTION IVP SCH (09:45)
[2017-07-05] MEDS: BENZOCAINE/MENTHOL SORE THROAT LOZENGE MM PRN (09:45)
[2017-07-05] MEDS: SERTRALINE 50 MG TABLET PO SCH (09:47)
[2017-07-05] MEDS: FOLIC ACID 1 MG TABLET PO SCH (09:47)
[2017-07-05] MEDS: REFRESH CLASSIC Eye Drops 0.4ml LEFT EYE SCH ×2 (09:48→13:23)
[2017-07-05] MEDS: CALMOSEPTINE OINTMENT 113gm TUBE TP SCH (09:50)
[2017-07-05] MEDS: NYSTATIN OINTMENT 15gm TP SCH (09:51)
[2017-07-05] MEDS: NS 1,000 ML IV SCH (09:51)
[2017-07-05 10:29] VITALS: BP 122/67; PULSE 100
--- NOTE | 2017-07-05 11:09 | CT Scan Report ---
EXAM: CT head/brain wo con LOCATION OF DICTATION: [facility] HISTORY: confusion COMPARISON: No prior studies available for comparison. TECHNIQUE: Multiple contiguous axial images were obtained of the head without contrast. Iterative Reconstruction dose reducing technique was utilized. FINDINGS: The ventricles and sulci are within normal limits for the patient's age. Minimal white matter disease suggested. There is no midline shift or mass effect. The basilar cisterns are patent. The calvillo-white matter interface is within normal limits. There is no evidence for acute intraparenchymal or extra-axial hemorrhage. The paranasal sinuses and mastoid air cells are clear. The globes and orbits are within normal limits. There are no calvarial fractures demonstrated. IMPRESSION: 1. No evidence for acute intracranial process or hemorrhage. 2. Minimal white matter disease suggested which may be secondary to chronic small vessel ischemic disease. .
--- NOTE | 2017-07-05 11:11 | XRay Report ---
LOCATION OF DICTATION: [facility] EXAM: XR chest 2V HISTORY: hypoxia COMPARISON: No prior studies available for comparison. FINDINGS: Heart size is normal. Limited depth of inspiration with crowding of the interstitial lung markings. Superimposed interstitial opacities are demonstrated within the perihilar regions bilaterally which may be seen with pulmonary edema. There are no visible pleural effusions. No pneumothorax. Rightward curvature of the upper thoracic spine. IMPRESSION: 1. Limited depth of inspiration with crowding of the interstitial lung markings and suggested developing superimposed interstitial opacities in the perihilar regions bilaterally which could be secondary to pulmonary edema or atypical pneumonia. .
--- NOTE | 2017-07-05 11:43 | Discharge Summary ---
Discharge Information Date of admission: 07/02/17 10:11 Anticipated date of discharge: 07/05/17 Attending Physician: Iva Retana MD Primary care physician: Valentina Jones MD Consults: 07/02/17 11:58 Physician Consult [CONS] Routine Consulting Provider: Wilma Thornton Reason For Exam: depression Ordering Provider has Notified General Laborer: Yes - Discharge Diagnosis (1) Alcohol use disorder Status: Acute Probable hepatorenal syndrome KATH (07/02/17) - Cr 2.2, baseline 0.6 Presumed ETOH liver disease Hypoalbuminemia Anasarca Ascites Probable pulmonary edema Hypotension Fall Significant functional decline Self care failure Erythematous left eye - resolved Thrombocytopenia, chronic. Hypertension Chronic hypoxia secondary to hypoventilation due to body habitus Sleep apnea Chronic anemia Osteoarthritis Depression History of alcohol abuse Bladder and bowel incontinence Gait instability Obesity Skin breakdown c/w fungal infection - Procedures Procedures: none - Laboratory Labs: 07/05/17 03:56 07/05/17 03:56 Laboratory Tests 05/20/17 06/11/17 06/25/17 04:35 11:06 12:11 WBC RBC Hgb Hct MCV MCH MCHC RDW Std Deviation Plt Count MPV Immature Gran % (Auto) Neut % (Auto) Lymph % (Auto) Long % (Auto) Eos % (Auto) Baso % (Auto) Neut # (Auto) INR Sodium Potassium Chloride Carbon Dioxide Anion Gap BUN Creatinine 0.7 0.6 L GFR Calculation BUN/Creatinine Ratio Glucose Calculated Osmolality Calcium Total Bilirubin GGT AST ALT Alkaline Phosphatase Ammonia Total Creatine Kinase NT-Pro-B Natriuret Pep 308 H 398 H Total Protein Albumin Globulin Albumin/Globulin Ratio Specimen Hemolysis Stl Cyclospora species Stool Rotavirus A PCR Stool Adenovirus (PCR) Stool Astrovirus (PCR) Stool Campylobacter PCR Stl C.difficile Tox PCR Stool Cryptosporidium PCR Stl E.coli Shiga Toxins Stl Enterotoxigenic E PCR Stool EPEC (PCR) Stool EAEC (PCR) Stool Entamoeba (PCR) Stool Giardia Lamblia PCR Stool Salmonella PCR Stool Sapovirus (PCR) Stl P. shigelloides PCR Stl Shigella/EIEC PCR St Y.enterocolitica PCR Stool Vibrio (PCR) Stl Vibrio cholera PCR Stl Norovirus GI/GII PCR Alcohol, Quantitative 06/29/17 06/30/17 06/30/17 04:15 16:29 16:29 WBC 11.3 H RBC 3.10 L Hgb 11.2 L Hct 34.9 L MCV 112.6 H MCH 36.1 H MCHC 32.1 RDW Std Deviation 49.6 Plt Count 124 L MPV 12.5 H Immature Gran % (Auto) 0.4 Neut % (Auto) 75.1 H Lymph % (Auto) 16.4 L Long % (Auto) 7.3 Eos % (Auto) 0.6 Baso % (Auto) 0.2 Neut # (Auto) 8.5 H INR Sodium 138 Potassium 4.2 Chloride 102 Carbon Dioxide 25 Anion Gap 11 BUN Creatinine 1.1 GFR Calculation 34 BUN/Creatinine Ratio 16 Glucose 101 Calculated Osmolality 271 Calcium 8.8 Total Bilirubin 4.40 H GGT AST 75 H ALT 17 Alkaline Phosphatase 235 H Ammonia Total Creatine Kinase NT-Pro-B Natriuret Pep Total Protein 7.0 Albumin 2.3 L Globulin 4.7 H Albumin/Globulin Ratio 0.5 L Specimen Hemolysis Stl Cyclospora species Stool Rotavirus A PCR Stool Adenovirus (PCR) Stool Astrovirus (PCR) Stool Campylobacter PCR Stl C.difficile Tox PCR Stool Cryptosporidium PCR Stl E.coli Shiga Toxins Stl Enterotoxigenic E PCR Stool EPEC (PCR) Stool EAEC (PCR) Stool Entamoeba (PCR) Stool Giardia Lamblia PCR Stool Salmonella PCR Stool Sapovirus (PCR) Stl P. shigelloides PCR Stl Shigella/EIEC PCR St Y.enterocolitica PCR Stool Vibrio (PCR) Stl Vibrio cholera PCR Stl Norovirus GI/GII PCR Alcohol, Quantitative <10 06/30/17 07/01/17 07/01/17 16:53 03:48 16:34 WBC RBC Hgb Hct MCV MCH MCHC RDW Std Deviation Plt Count MPV Immature Gran % (Auto) Neut % (Auto) Lymph % (Auto) Long % (Auto) Eos % (Auto) Baso % (Auto) Neut # (Auto) INR Sodium Potassium Chloride Carbon Dioxide Anion Gap BUN 28.0 H Creatinine 1.7 H D GFR Calculation BUN/Creatinine Ratio Glucose Calculated Osmolality Calcium Total Bilirubin 3.30 H GGT AST ALT Alkaline Phosphatase Ammonia 17 Total Creatine Kinase 29 L NT-Pro-B Natriuret Pep Total Protein Albumin Globulin Albumin/Globulin Ratio Specimen Hemolysis Stl Cyclospora species Negative Stool Rotavirus A PCR Negative Stool Adenovirus (PCR) Negative Stool Astrovirus (PCR) Negative Stool Campylobacter PCR Negative Stl C.difficile Tox PCR Negative Stool Cryptosporidium PCR Negative Stl E.coli Shiga Toxins Negative Stl Enterotoxigenic E PCR Negative Stool EPEC (PCR) Negative Stool EAEC (PCR) Negative Stool Entamoeba (PCR) Negative Stool Giardia Lamblia PCR Negative Stool Salmonella PCR Negative Stool Sapovirus (PCR) Negative Stl P. shigelloides PCR Negative Stl Shigella/EIEC PCR Negative St Y.enterocolitica PCR Negative Stool Vibrio (PCR) Negative Stl Vibrio cholera PCR Negative Stl Norovirus GI/GII PCR Negative Alcohol, Quantitative 07/02/17 07/02/17 07/03/17 04:46 04:47 04:32 WBC RBC Hgb Hct MCV MCH MCHC RDW Std Deviation Plt Count MPV Immature Gran % (Auto) Neut % (Auto) Lymph % (Auto) Long % (Auto) Eos % (Auto) Baso % (Auto) Neut # (Auto) INR Sodium Potassium Chloride Carbon Dioxide Anion Gap BUN 34.0 H 35.0 H Creatinine 2.2 H D 2.2 H GFR Calculation BUN/Creatinine Ratio Glucose Calculated Osmolality Calcium Total Bilirubin 2.60 H GGT AST ALT Alkaline Phosphatase Ammonia 18 Total Creatine Kinase NT-Pro-B Natriuret Pep Total Protein Albumin Globulin Albumin/Globulin Ratio Specimen Hemolysis Stl Cyclospora species Stool Rotavirus A PCR Stool Adenovirus (PCR) Stool Astrovirus (PCR) Stool Campylobacter PCR Stl C.difficile Tox PCR Stool Cryptosporidium PCR Stl E.coli Shiga Toxins Stl Enterotoxigenic E PCR Stool EPEC (PCR) Stool EAEC (PCR) Stool Entamoeba (PCR) Stool Giardia Lamblia PCR Stool Salmonella PCR Stool Sapovirus (PCR) Stl P. shigelloides PCR Stl Shigella/EIEC PCR St Y.enterocolitica PCR Stool Vibrio (PCR) Stl Vibrio cholera PCR Stl Norovirus GI/GII PCR Alcohol, Quantitative 07/03/17 07/04/17 07/04/17 04:32 04:11 04:11 WBC RBC Hgb Hct MCV MCH MCHC RDW Std Deviation Plt Count MPV Immature Gran % (Auto) Neut % (Auto) Lymph % (Auto) Long % (Auto) Eos % (Auto) Baso % (Auto) Neut # (Auto) INR 1.64 H Sodium Potassium Chloride Carbon Dioxide Anion Gap BUN 36.0 H Creatinine 2.0 H D GFR Calculation BUN/Creatinine Ratio Glucose Calculated Osmolality Calcium Total Bilirubin 2.40 H GGT 75 H AST ALT Alkaline Phosphatase Ammonia Total Creatine Kinase NT-Pro-B Natriuret Pep Total Protein Albumin Globulin Albumin/Globulin Ratio Specimen Hemolysis Stl Cyclospora species Stool Rotavirus A PCR Stool Adenovirus (PCR) Stool Astrovirus (PCR) Stool Campylobacter PCR Stl C.difficile Tox PCR Stool Cryptosporidium PCR Stl E.coli Shiga Toxins Stl Enterotoxigenic E PCR Stool EPEC (PCR) Stool EAEC (PCR) Stool Entamoeba (PCR) Stool Giardia Lamblia PCR Stool Salmonella PCR Stool Sapovirus (PCR) Stl P. shigelloides PCR Stl Shigella/EIEC PCR St Y.enterocolitica PCR Stool Vibrio (PCR) Stl Vibrio cholera PCR Stl Norovirus GI/GII PCR Alcohol, Quantitative 07/05/17 07/05/17 07/05/17 03:56 03:56 09:09 WBC RBC Hgb Hct MCV MCH MCHC RDW Std Deviation Plt Count MPV Immature Gran % (Auto) Neut % (Auto) Lymph % (Auto) Long % (Auto) Eos % (Auto) Baso % (Auto) Neut # (Auto) INR 1.62 H Sodium Potassium Chloride Carbon Dioxide Anion Gap BUN 36.0 H Creatinine 1.9 H GFR Calculation BUN/Creatinine Ratio Glucose Calculated Osmolality Calcium Total Bilirubin 2.20 H GGT AST 71 H ALT 15 Alkaline Phosphatase 193 H Ammonia 43 H Total Creatine Kinase NT-Pro-B Natriuret Pep 1580 H Total Protein 6.4 Albumin 2.3 L Globulin 4.1 H Albumin/Globulin Ratio 0.6 L Specimen Hemolysis 31 H Stl Cyclospora species Stool Rotavirus A PCR Stool Adenovirus (PCR) Stool Astrovirus (PCR) Stool Campylobacter PCR Stl C.difficile Tox PCR Stool Cryptosporidium PCR Stl E.coli Shiga Toxins Stl Enterotoxigenic E PCR Stool EPEC (PCR) Stool EAEC (PCR) Stool Entamoeba (PCR) Stool Giardia Lamblia PCR Stool Salmonella PCR Stool Sapovirus (PCR) Stl P. shigelloides PCR Stl Shigella/EIEC PCR St Y.enterocolitica PCR Stool Vibrio (PCR) Stl Vibrio cholera PCR Stl Norovirus GI/GII PCR Alcohol, Quantitative - Radiology Radiology: Date of Exam: 06/30/17 Ordering Provider: Sean Leija MD Type of Exam(s): CT orbit BI wo con Reason for Exam(s): left orbit swelling Indication: left orbit swelling PROCEDURE: CT orbit BI wo con: Encounter: Initial Comparison: None. Automated Exposure Control and Iterative Reconstruction dose reducing techniques were utilized. INDICATION: Status post fall with trauma to the face with laceration and bruising over the left eye. FINDINGS: There is moderate soft tissue swelling surrounding the left globe . There is no definite displaced fracture. Included portions of the paranasal and mastoid sinuses are clear. No definite mandibular fracture. There is moderate deviation of the mid nasal septum to the right IMPRESSION: Moderate soft tissue swelling around the right orbit, suggesting cellulitis, without bony destructive process or significant sinus opacification to suggest fracture or sinusitis. . Patient: Nadia Isbell MR#: [id number] : 1965 Age/Sex: 51 / F ADM Date: 07/02/17 Loc: MED 140-P DIS Date: = = = = = = = = = = = = = = = = = = = = = = = = = = = = = = = = = = = = = = = = = = = = = = = = = = = = = = = = = = = Date of Exam: 07/03/17 Ordering Provider: Jeff Green MD Type of Exam(s): US bladder Reason for Exam(s): confirm krause placement Indication: confirm krause placement PROCEDURE: US bladder: Encounter: Initial Comparison: None Technique/findings/ Impression: Grayscale sonographic imaging of the pelvis shows ascites but does not visualize the bladder or a Krause catheter. There is a preliminary report by [employer]. . Patient: Nadia Isbell MR#: [id number] : 1965 Age/Sex: 51 / F ADM Date: 07/02/17 Loc: MED 140-P DIS Date: = = = = = = = = = = = = = = = = = = = = = = = = = = = = = = = = = = = = = = = = = = = = = = = = = = = = = = = = = = = Date of Exam: 07/04/17 Ordering Provider: Ariela Vasquez APRN Type of Exam(s): CT head/brain wo con Reason for Exam(s): confusion EXAM: CT head/brain wo con LOCATION OF DICTATION: [facility] HISTORY: confusion COMPARISON: No prior studies available for comparison. TECHNIQUE: Multiple contiguous axial images were obtained of the head without contrast. Iterative Reconstruction dose reducing technique was utilized. FINDINGS: The ventricles and sulci are within normal limits for the patient's age. Minimal white matter disease suggested. There is no midline shift or mass effect. The basilar cisterns are patent. The calvillo-white matter interface is within normal limits. There is no evidence for acute intraparenchymal or extra-axial hemorrhage. The paranasal sinuses and mastoid air cells are clear. The globes and orbits are within normal limits. There are no calvarial fractures demonstrated. IMPRESSION: 1. No evidence for acute intracranial process or hemorrhage. 2. Minimal white matter disease suggested which may be secondary to chronic small vessel ischemic disease. . Patient: Nadia Isbell MR#: [id number] : 1965 Age/Sex: 52 / F ADM Date: 07/02/17 Loc: [facility] 140-P DIS Date: = = = = = = = = = = = = = = = = = = = = = = = = = = = = = = = = = = = = = = = = = = = = = = = = = = = = = = = = = = = Date of Exam: 07/05/17 Ordering Provider: Kvng Lincoln MD Type of Exam(s): XR chest 2V Reason for Exam(s): hypoxia LOCATION OF DICTATION: [facility] EXAM: XR chest 2V HISTORY: hypoxia COMPARISON: No prior studies available for comparison. FINDINGS: Heart size is normal. Limited depth of inspiration with crowding of the interstitial lung markings. Superimposed interstitial opacities are demonstrated within the perihilar regions bilaterally which may be seen with pulmonary edema. There are no visible pleural effusions. No pneumothorax. Rightward curvature of the upper thoracic spine. IMPRESSION: 1. Limited depth of inspiration with crowding of the interstitial lung markings and suggested developing superimposed interstitial opacities in the perihilar regions bilaterally which could be secondary to pulmonary edema or atypical pneumonia. . History of Present Illness HPI: Patient is a 52 y/o female with ETOH liver disease who presents to [facility] ED via EMS secondary to hypoxia and weakness. Was hospitalized at [facility] from 06/25/17 until 06/29/17 secondary to declining functional status, morbid thought, and suspected pneumonia. Was discharge to home yesterday-reluctant to go to skilled to try to increase her strength. Home health continued. Patient did qualify for O2 at discharge, but oxygen supplies not delivered (report I received was she would not answer her phone to make when called by supply [employer]). Home health found patient on floor. Oxygen sats decreased. EMS activated and found sats 70- 80 on RA, improved with 4L O2. Report that her was urine and feces throughout house. Patient really has no recollection of what happened to her once she was home. Does note her left eye is hurting. Eye red and injected. No recollection of any injury. Feels slight SOA and cough. No nausea or ab pain. Does feel weak in general. Lab obtained-similar to yesterday. Ammonia without elevation. CPK normal. Serum ETOH undetectable. With patient's declining functional status at home, she was placed in outpatient observation to try to make better care arrangements for her. Objective Vital signs: Temperature 96.9 F 07/05/17 07:30 Pulse Rate 100 07/05/17 10:22 Respiratory Rate 22 07/05/17 07:30 Blood Pressure 122/67 07/05/17 10:22 Pulse Oximetry 97 07/05/17 07:30 Height/Weight/BMI: Weight 103.1 kg Comments: On exam today the patient is afebrile with temperature of 96.9. Heart rate 89, but pressure 109/67, O2 sat 97% on 2 L. Orthostatic blood pressure lying 109/67 with a pulse of 89, sitting 123/61 pulse of 101, standing 122/67, pulse of 100 Weight today is 103.1 kg Weight on admission 98.7 kg I&O on 07/03/2017 was 2500/225 I&O on 07/04/2017 was 2268/75 I&O today 07/05/2017 is 1240/300 On exam today the patient is mild to moderately confused. She is oriented to [facility], self, initially thinks it's 2019 but is able to be redirected to 2018. HEENT reveals sclerae to be anicteric, pupils are equal. The erythema that she had around the left eye on admission has resolved. Oropharynx is moist with possible thrush on her tongue. Neck is supple. Chest reveals some faint crackles anteriorly. Cardiovascular reveals a regular rate and rhythm. Abdomen is soft, obese, mildly distended, nontender. She does have some mild pitting edema in the lower abdomen/pannus. The patient has 3+ edema in the thighs with pitting. Skin is warm and dry and without rashes. The patient moves all 4 extremities weakly on exam. Hospital Course This is a general summary of the patient's hospital course. For more details refer to the complete medical record. Hospital course: 06/30/[address] patient in OBS at [facility] for supportive care and investigation of better living arrangements. CM consult to help with discharge disposition. SCD/TIAGO hose to help with peripheral edema. Continue home medications, holding this evening's dose of diuretics as creatinine with slight elevation. Zofran prn nausea. Refresh eye drops due to scleral irritation. Continue with supplemental oxygen. DNR as per her requests. Care to return to Dr Jones at time of discharge from [facility]. 07/01/17 Patient is depressed about her situation. Some confusion about timeline of events noted, but per H&P she had poor recollection about her short time at home. She agrees to IRU screen. Labs show resolution of leukocytosis. Hgb decreased from 11.2. to 9.6. Renal function slightly worse with cr increasing from 1.6 to 1.7. Total bili decreased from 4.4 to 3.3. 07/02/17 Patient with increasing creatinine, up to 2.2 and her baseline has been about 0.6. Poor oral intake and increasing volume loss through occasional diarrhea. GI panel was neg. BP has been persistently low, 87/53 this am. Will give NS 500 mL bolus then start NS at 125 mL/hr and hold Lasix. Change status to inpatient based on KATH - anticipate that it will take more than 2 days for creatinine to improve. Repeat UA; last one was done on 06/25. I contacted the wound clinic - RN will come assess pt today. Her floor RN reports that there is significant perianal erythema, excoriation, and bleeding. Seen by psych. Per Dr. Thornton "Recommend that patient not be allowed to leave AMA; please contact psych if she tries to do so." GGT ordered at request of Dr. Thornton to better understand recent EtOH use. 07/03/17 Creatinine remains at 2.2 (w/ baseline of 0.6) with only 200cc's urine output overnight. Lasix put on hold yesterday. NS bolus 500cc's yesterday has been running at 125cc's/hr - will decrease to 75cc's/hr. Hold spironolactone. Krause placed last night with minimal to no urine return and bladder scan of > 900. Sono this am showed ascites in the abd/pelvis and bladder was not visualized (likely collapsed) consistent with oliguria. Continues to have significant anasarca. Encouraged pt to use SCD's and to work with PT to increase mobilization. Albumin infusion completed yesterday. GGT is pending. Cognition seems improved this am. 07/04/17 Patient remains depressed, anxious. Paranoia is an ongoing concern. Appreciate psych assistance- pt may not leave AMA. Continue Zoloft for now. Will obtain a CT of the head given persistent confusion. KATH ongoing- continue gentle IVF. Holding diuretics. Significant anasarca ongoing, but mild LE edema noted on exam. Possible hepatorenal scan. B12 level was elevated last stay- will DC PO supplement. Elevated Ferritin- consider GI consult to R/O hemochromatosis given ongoing liver concerns. She may need liver bx in future. Significant fungal skin/soft tissue changes. Add nystatin ointment to skin care. Add low dose diflucan x days to help clear faster- monitor mental status with this. Hold Zofran when giving diflucan. Repeat labs in AM. She remains ill, ongoing failure for self care. Will likely need placement . 07/05/2017 The patient was admitted with acute kidney injury, hypoxia, peripheral edema and confusion. She was given gentle hydration over the hospital course, but unfortunately her creatinine which was 1.6 on admission steadily increased to a high of 2.2. Today creatinine is 1.9. Urine output has been poor during the hospital course. Yesterday urine output was only 75 ML's. From 10 PM last night until this morning urine output is 300 and this was after receiving 25 mg of albumin and Bumex 0.5 mg IV 1. Chest x-ray shows signs of some pulmonary edema and she is on 2 L of oxygen. She is not orthostatic on exam. Albumin is in the mid 2 range. I'm concerned for possible hepatorenal syndrome. She likely has liver disease secondary to chronic alcoholism, but has not had a formal workup with gastroenterology. I did talk with the patient who is in agreement with transfer to [place] in [place] for hepatorenal syndrome in order to have an evaluation with nephrology and gastroenterology. I did try to call the patient' s sister Erin, who his DPOA, but there was no answer at either number. CT head done yesterday shows no significant abnormalities. This was done because of increased confusion. Ammonia level has increased today. We have not initiated lactulose today prior to transfer. Time spent with patient: greater than 35 minutes Resuscitation Status: Do Not Resuscitate Discharge Plan - Discharge Disposition Disposition: 02 To [facility] Acute Care *Condition: Stable Reason For Visit (Visit label in EMR): Fall - Discharge Medications *Discharge Medications: Discontinued Folic Acid [Folate] 1 mg PO DAILY tab Pantoprazole Tab [Protonix Tab] 40 mg PO ACB tab Spironolactone [Aldactone] 25 mg PO BID tab Hydrocortisone 2.5% Cream [Anusol-Hc 2.5% Cream] 1 applicatio TOP PRN Furosemide [Lasix 40 mg Tab] 40 mg PO BID Lactulose Oral Liq [Lactulose] 20 gm PO DAILY PRN #120 solution PRN Reason: Constipation Cyanocobalamin (Vitamin B-12) [Vitamin B12] 2,500 mcg PO DAILY #30 tab guaiFENesin [Cough Syrup] 100 mg PO Q4H PRN PRN Reason: Cough Potassium Chloride [K-DUR 20 mEq Tablet] 20 meq PO BIDWM tab Loperamide [Imodium] 2 mg PO Q4H PRN PRN Reason: Loose Stools No Action Thiamine HCl 100 mg PO DAILY #30 tab Sertraline [Zoloft] 50 mg PO DAILY Benzocaine/Menthol Lozenge [CEPACOL SORE THROAT Lozenge] 1 lozenge MM PRN PRN lozenge PRN Reason: Sore Throat - Discharge Packet/Instructions *Diet: Low-sodium diet *Activity: Up with assist *Pain Management/Treatment: Not applicable *Wound Care: Not applicable Additional Instructions: Follow-up with Dr. Valentina Jones in [facility] after discharge *Expected Signs/Symptoms: Not applicable *Notify Physician if: Not applicable *During Business Hours Contact: Not applicable *After Business Hours Contact: Not applicable *Pending Lab/Results: No Pending Lab - Referrals/Follow Up - Patient Handouts Patient Handouts: Fall Prevention (GEN) - Dismissal Complete Discharge Instructions are:: Complete Physician Narrative - Narrative Attestation Narrative: Date: 07/05/17 Time: [id number]
--- NOTE | 2017-07-05 11:48 | Ultrasound Report ---
EXAM: US renal BI DATE: 07/05/2017 12:00 AM SITE OF DICTATION: [facility]. INDICATION: decreased urine output COMPARISON: None available. TECHNIQUE: Multiple real-time grayscale sonographic images were obtained of the right and left kidneys with color flow and spectral analysis. FINDINGS: The graft Limited visualization as the patient could not roll decubitus. The right kidney demonstrates normal corticomedullary differentiation and measures 0.5 x 5.3 x 4.9 cm. There is no right sided mass, calculus or hydronephrosis. The left kidney demonstrates normal corticomedullary differentiation and measures 11.5 x 5.5 x 5.0 cm. There is no left sided mass, calculus or hydronephrosis. IMPRESSION: Normal renal ultrasound. .
[2017-07-05] MEDS: FLUCONAZOLE PB 100 MG/50 ML BAG IV SCH (12:23)
[2017-07-05] MEDS ORDERED: MORPHINE SULFATE 4mg INJECTION IVP PRN (13:19)
== END 2017-07-05 13:25 | disposition short-term general hospital (02) | DRG 442 ==
LOC: ED 16:21 → MED 16:21 → SUATTDRO 07-02 10:11
PROVIDERS: ADMIT Hospitalist; ATTEND Internal Medicine